=== PATIENT | male | born 1940 | race Caucasian/White ===

== ENCOUNTER 2018-12-26 18:48 | Inpatient (IN) | payer MEDICARE ==
[2018-12-26 19:29] LABS: Hemoglobin 14.2 g/dL (14.0-18.0); Mean Corpuscular HGB CONC 32.8 g/dL (32.0-36.0); Mean Corpuscular Hemoglobin 31.4 pg (27.0-31.0); Mean Corpuscular Volume 95.7 fL (78.0-98.0); Mean Platelet Volume 10.5 fL (7.4-10.4); Platelet Count 138 thou/uL (130-400); RBC Distribution Width 13.3 % (11.5-14.5); Red Blood Cell (RBC) Count 4.54 mill/uL (4.70-6.10); White Blood Cell (WBC) Count 15.8 thou/uL (4.8-10.8)
--- NOTE | 2018-12-26 19:33 | RAD ---
CHEST ONE VIEW 12/26/18 HISTORY: Shortness of breath. COMPARISON: Radiograph 10/24/14. FINDINGS: There is a left basilar air space opacity. Subtle right basilar air space opacity. Mild distention of the gastric bubble. Lungs are hypoinflated. No pneumothorax. Rotator cuff arthropathy bilaterally. IMPRESSION: Left basilar air space infiltrates concerning for aspiration or infection. POS: [facility]
[2018-12-26 19:35] LABS: INR-International Normal Ratio 1.3; PTT 32.4 SEC (22.9-36.1); Prothrombin Time 15.9 SEC (12.0-14.7)
[2018-12-26 19:53] LABS: Band 15 % (5-11); Lymphocytes 2 % (21-51); MDiff Complete? YES; Monocytes 4 % (0-10); Neutrophil 79 % (42-75); Platelet Morphology Comment Appears Adequate
[2018-12-26 19:56] LABS: ALT (SGPT) 59 U/L (8-55); AST (SGOT) 38 U/L (5-34); Albumin 2.8 g/dL (3.4-4.8); Alkaline Phosphatase 306 U/L (40-150); Anion Gap 16 mmol/L (10-20); BUN (Urea Nitrogen) 86 mg/dL (8.4-25.7); Bilirubin, Total 3.6 mg/dL (0.2-1.2); Calc. Creatinine Clearance 0 mL/min (70-130); Calcium 8.4 mg/dL (7.8-10.44); Carbon Dioxide 23 mmol/L (23-31); Chloride 90 mmol/L (98-107); Estimated GFR-MDRD 16; Globulin 2.8 g/dL (2.4-3.5); Glucose 532 mg/dL (83-110); Potassium 4.7 mmol/L (3.5-5.1); Protein, Total 5.6 g/dL (5.8-8.1); Sodium 124 mmol/L (136-145)
[2018-12-26] MEDS ORDERED: cefTRIAXone\\ROCEPHIN 2 GM VIAL ONE (22:22)
[2018-12-26 22:37] LABS: Troponin I Less than 0.010 ng/mL (< 0.028)
[2018-12-26 22:41] LABS: Bilirubin Moderate (Negative); Clarity CLOUDY (Clear); Glucose, Urine (Dipstick) 100 mg/dL (Negative); Leukocyte Large (Negative); Nitrite Positive (Negative); Protein, Urine (Dipstick) 100 mg/dL (Neg-Trace); Specific Gravity, Urine 1.016 (1.002-1.036)
[2018-12-26 22:43] LABS: Bacteria/HPF 4+ HPF (None Seen); Hyaline Casts/LPF 0-3 HYALINE CAST LPF (0-3 Hyaline); Pathc Cast-AUWi Flag 0.81 (0-2.49); Squamous Epithelial 0-3 HPF (0-3)
[2018-12-26 22:45] LABS: Blood, Urine Small (Negative); Yeast-All Forms None Seen HPF (None Seen)
[2018-12-27] MEDS ORDERED: Guaifenesin DM 100-10/5 ML UDCUP PO PRN (00:41)
[2018-12-27] MEDS ORDERED: Ondansetron PF 4 MG/2 ML Vial IVP PRN (00:41)
[2018-12-27] MEDS ORDERED: Zolpidem Tartrate 5 MG TAB PO PRN (00:41)
[2018-12-27] MEDS ORDERED: Metoprolol Tartrate 5 MG/5 ML VIAL IVP PRN (00:41)
[2018-12-27] MEDS ORDERED: Dextrose 5% in Water 1,000 ML IV PRN (00:49)
[2018-12-27] MEDS ORDERED: HumaLOG 300 UNITS/3 ML VIAL SC PRN ×4 (00:49→07:46)
[2018-12-27] MEDS ORDERED: Dextrose 50% Abboject 50 ML SYRINGE SLOW IVP PRN (00:49)
--- NOTE | 2018-12-27 01:13 | PDOC.EVN ---
Event Note - Event Note Event Note: Nurse Anusha brought to my attention patient's low BP as she was monitoring the patient vigilantly along with Nurse Anuradha. The patient has low Na, likely indicating a low EF and possible increase an ADH due to CHF with CKD and cardiorenal and depressurization of the baroreceptors. Patient has received 2 L bolus already. I do not know what his EF is and with the patient presenting with SOB and afib I would not like to give more IVFs. At this point in time will do midodrine 10mg po TID to be held if SBP > 140mmHg. Will change patient to inpatient and move to IMCU.
[2018-12-27] MEDS ORDERED: Midodrine HCl 5 MG TAB PO SCH (01:45)
[2018-12-27 01:59] LABS: Hemoglobin 13.6 g/dL (14.0-18.0); Mean Corpuscular HGB CONC 32.8 g/dL (32.0-36.0); Mean Corpuscular Hemoglobin 31.4 pg (27.0-31.0); Mean Corpuscular Volume 95.6 fL (78.0-98.0); Mean Platelet Volume 10.7 fL (7.4-10.4); Platelet Count 138 thou/uL (130-400); RBC Distribution Width 13.3 % (11.5-14.5); Red Blood Cell (RBC) Count 4.34 mill/uL (4.70-6.10); White Blood Cell (WBC) Count 17.4 thou/uL (4.8-10.8)
[2018-12-27 02:01] VITALS: BMI 28.3
[2018-12-27] MEDS ORDERED: Enoxaparin Sodium 100 MG/ML SYRINGE SC SCH ×3 (02:15→21:00)
[2018-12-27 02:16] LABS: Troponin I Less than 0.010 ng/mL (< 0.028)
[2018-12-27 02:17] LABS: Band 7 % (5-11); Lymphocytes 7 % (21-51); MDiff Complete? YES; Monocytes 5 % (0-10); Neutrophil 81 % (42-75)
[2018-12-27 02:22] LABS: Hemoglobin A1c 10.5 % (4.0-6.0)
[2018-12-27 02:23] LABS: Anion Gap 21 mmol/L (10-20); BUN (Urea Nitrogen) 92 mg/dL (8.4-25.7); Calc. Creatinine Clearance 22 mL/min (70-130); Calcium 8.7 mg/dL (7.8-10.44); Carbon Dioxide 16 mmol/L (23-31); Chloride 91 mmol/L (98-107); Estimated GFR-MDRD 16; Glucose 539 mg/dL (83-110); Potassium 4.8 mmol/L (3.5-5.1); Sodium 123 mmol/L (136-145)
[2018-12-27] MEDS ORDERED: Enoxaparin Sodium 100 MG/ML SYRINGE ONE (02:50)
[2018-12-27 07:28] LABS: Troponin I Less than 0.010 ng/mL (< 0.028)
[2018-12-27] MEDS ORDERED: VANCOMYCIN/ZOSYN IVPB PRN (07:45)
[2018-12-27] MEDS ORDERED: Sodium Chloride 0.9% 500 ML IV SCH (07:45)
[2018-12-27 09:00] LABS: Lactic Acid 2.1 mmol/L (0.5-2.2)
[2018-12-27] MEDS ORDERED: Famotidine 20 MG TAB PO SCH (09:00)
[2018-12-27] MEDS ORDERED: Insulin Glargine 5 UNITS in Pre-Filled Syringe 1 EACH SC SCH ×2 (09:00→21:00)
[2018-12-27] MEDS ORDERED: Vancomycin HCl 1.25 GM in Sodium Chloride 0.9% 250 ML 250 ML IVPB SCH (09:00)
[2018-12-27] MEDS: Aspirin 81 mg Enteric Coated Tablet PO SCH (09:07)
[2018-12-27] MEDS: Saccharomyces boulardii 250 MG CAP PO SCH (09:09)
[2018-12-27] MEDS ORDERED: Famotidine 20 MG TAB ONE (09:10)
[2018-12-27] MEDS: Famotidine 20 MG TAB PO SCH (09:35)
[2018-12-27] MEDS: Piperacillin/Tazobactam 2.25 GM in Sodium Chloride 0.9% 100 ML IVPB SCH ×3 (09:35→20:23)
[2018-12-27] MEDS: Heparin 5,000 UNITS/ML VIAL SC SCH ×2 (09:52→20:23)
[2018-12-27] MEDS: Sodium Chloride 0.9% 1,000 ML IV SCH (09:53)
--- NOTE | 2018-12-27 11:34 | PDOC.PN ---
- Subjective Encounter Start Date: 12/27/18 Encounter Start Time: 10:35 -: old records requested/rev pt has cough, he is very weak, no fever today, has mild dyspnea - Objective MAR Reviewed: Yes Vital Signs & Weight: Weight Weight 203 lb 2 oz Result Diagrams: 12/27/18 01:43 12/27/18 01:43 Additional Labs: Accuchecks 12/27/18 12/26/18 06:53 22:56 POC Glucose 435 H 476 H Radiology Reviewed by me: Yes (chest xray reviewed) EKG Reviewed by me: Yes (afib) Phys Exam - Physical Examination Constitutional: NAD HEENT: PERRLA, moist MMs, sclera anicteric Neck: no JVD, supple Respiratory: no wheezing, no rales, no rhonchi Cardiovascular: RRR, no significant murmur, no rub Gastrointestinal: soft, non-tender, no distention, positive bowel sounds Musculoskeletal: no edema, pulses present Neurological: non-focal, normal sensation, moves all 4 limbs Lymphatic: no nodes Psychiatric: normal affect, A&O x 3 Skin: no rash, normal turgor Dx/Plan (1) Acute kidney failure Status: Acute (2) Community acquired bacterial pneumonia Code(s): J15.9 - UNSPECIFIED BACTERIAL PNEUMONIA Status: Acute (3) Hyperglycemia due to type 2 diabetes mellitus Code(s): E11.65 - TYPE 2 DIABETES MELLITUS WITH HYPERGLYCEMIA Status: Acute (4) Hyponatremia Code(s): E87.1 - HYPO-OSMOLALITY AND HYPONATREMIA Status: Acute (5) Metabolic acidosis Code(s): E87.2 - ACIDOSIS Status: Acute (6) Sepsis with acute organ dysfunction Code(s): A41.9 - SEPSIS, UNSPECIFIED ORGANISM; R65.20 - SEVERE SEPSIS WITHOUT SEPTIC SHOCK Status: Acute (7) Sepsis with hypotension Code(s): A41.9 - SEPSIS, UNSPECIFIED ORGANISM; I95.9 - HYPOTENSION, UNSPECIFIED Status: Acute (8) UTI (urinary tract infection) Status: Acute (9) Atrial fibrillation and flutter Code(s): I48.91 - UNSPECIFIED ATRIAL FIBRILLATION; I48.92 - UNSPECIFIED ATRIAL FLUTTER Status: Chronic (10) BPH (benign prostatic hyperplasia) Code(s): N40.0 - BENIGN PROSTATIC HYPERPLASIA WITHOUT LOWER URINRY TRACT SYMP Status: Chronic (11) COPD (chronic obstructive pulmonary disease) Status: Chronic (12) Diabetes type 2, controlled Code(s): E11.9 - TYPE 2 DIABETES MELLITUS WITHOUT COMPLICATIONS Status: Chronic (13) Dyslipidemia Code(s): E78.5 - HYPERLIPIDEMIA, UNSPECIFIED Status: Chronic (14) Hypertension Code(s): I10 - ESSENTIAL (PRIMARY) HYPERTENSION Status: Chronic - Plan cont current plan of care, plan discussed w/ family, continue antibiotics, respiratory therapy * will add vancomycin and zosyn * add duoneb * continue IVF * add bolus fluid * echo pending * cardiology consulted * follow culture * medication reviewed as below * symptomatic treatment * discussed with son bedside. * control blood sugar Review of Systems - Review of Systems Respiratory: Cough. negative: Dry, Shortness of Breath, Hemoptysis, SOB with Excertion, Pleuritic Pain, Sputum, Wheezing Cardiovascular: negative: chest pain, palpitations, orthopnea, paroxysmal nocturnal dyspnea, edema, light headedness, other Gastrointestinal: negative: Nausea, Vomiting, Abdominal Pain, Diarrhea, Constipation, Melena, Hematochezia, Other Genitourinary: negative: Dysuria, Frequency, Incontinence, Hematuria, Retention , Other Musculoskeletal: negative: Neck Pain, Shoulder Pain, Arm Pain, Back Pain, Hand Pain, Leg Pain, Foot Pain, Other - Medications/Allergies Allergies/Adverse Reactions: Allergies Allergy/AdvReac Type Severity Reaction Status Date / Time No Known Allergies Allergy Unverified 12/27/18 00:51 Medications: Current Medications Acetaminophen (Tylenol) 650 mg PO Q4H PRN PRN Reason: Headache/Fever/Mild Pain (1-3) Albuterol/Ipratropium (Duoneb) 3 ml NEB [id number] [facility] Aspirin (Ecotrin) 81 mg PO DAILY [facility] Last Admin: 12/27/18 09:07 Dose: 81 mg Atorvastatin Calcium (Lipitor) 40 mg PO HS [facility] Dextrose/Water (Dextrose 50%) 25 gm SLOW IVP PRN PRN PRN Reason: Hypoglycemia Famotidine (Pepcid) 20 mg PO DAILY [facility] Last Admin: 12/27/18 09:35 Dose: 20 mg Glucagon (Glucagon) 1 mg IM PRN PRN PRN Reason: Hypoglycemia Guaifenesin/Dextromethorphan (Robitussin Dm) 15 ml PO Q4H PRN PRN Reason: Cough Heparin Sodium (Porcine) (Heparin) 5,000 units SC BID [facility] Last Admin: 12/27/18 09:52 Dose: 5,000 units Dextrose/Water (D5w) 1,000 mls @ 0 mls/hr IV .Q0M PRN PRN Reason: Hypoglycemia Sodium Chloride (Normal Saline 0.9%) 1,000 mls @ 125 mls/hr IV .Q8H [facility] Last Admin: 12/27/18 09:53 Dose: 1,000 mls Piperacillin Sod/Tazobactam (Sod 2.25 gm/ Sodium Chloride) 100 mls @ 200 mls/ hr IVPB 0200,0800,1400,2000 [facility] Last Admin: 12/27/18 09:35 Dose: 100 mls Insulin Glargine 5 units/ (Miscellaneous Medication) 0.05 mls @ 0 mls/hr SC HS [facility] Insulin Glargine 5 units/ (Miscellaneous Medication) 0.05 mls @ 0 mls/hr SC QAM [facility] Last Admin: 12/27/18 09:04 Dose: 0.05 mls Vancomycin HCl 1.25 gm/ Sodium (Chloride) 250 mls @ 166.667 mls/hr IVPB .PENDING LEVEL [facility] Insulin Human Lispro (Humalog) 0 units SC .MODERATE SLIDING SC PRN PRN Reason: Moderate Correctional Scale Insulin Human Lispro (Humalog) 0 units SC .BEDTIME SLIDING SC PRN PRN Reason: Bedtime Correctional Scale Miscellaneous Medication (Pharmacy To Dose) 1 each IVPB PRN PRN PRN Reason: Pharmacy to dose Ondansetron HCl (Zofran) 4 mg IVP Q6H PRN PRN Reason: Nausea/Vomiting Saccharomyces Boulardii (Florastor) 250 mg PO DAILY [facility] Last Admin: 12/27/18 09:09 Dose: 250 mg Sodium Chloride (Flush - Normal Saline) 10 ml IVF Q12HR [facility] Last Admin: 12/27/18 09:09 Dose: 10 ml Sodium Chloride (Flush - Normal Saline) 10 ml IVF PRN PRN PRN Reason: Saline Flush Zolpidem Tartrate (Ambien) 5 mg PO HSPRN PRN PRN Reason: Insomnia
[2018-12-27] MEDS ORDERED: HumaLOG 300 UNITS/3 ML VIAL ONE (12:36)
[2018-12-27] MEDS ORDERED: Piperacillin/Tazobactam 2.25 GM VIAL ONE (14:19)
[2018-12-27] MEDS ORDERED: Sodium Chloride 0.9% 100 ML ONE (14:19)
[2018-12-27 14:57] LABS: Troponin I Less than 0.010 ng/mL (< 0.028)
[2018-12-27 18:21] LABS: Anion Gap 23 mmol/L (10-20); BUN (Urea Nitrogen) 100 mg/dL (8.4-25.7); Calc. Creatinine Clearance 20 mL/min (70-130); Calcium 8.5 mg/dL (7.8-10.44); Chloride 96 mmol/L (98-107); Estimated GFR-MDRD 14; Potassium 4.8 mmol/L (3.5-5.1); Sodium 123 mmol/L (136-145)
[2018-12-27 18:27] LABS: Carbon Dioxide 9 mmol/L (23-31); Glucose 566 mg/dL (83-110)
[2018-12-27] MEDS ORDERED: Dextrose 5 %-0.45 % NaCl 1,000 ML IV PRN (18:29)
[2018-12-27] MEDS ORDERED: CCU Electrolyte Replacement 1 EACH IVPB ONE (18:29)
[2018-12-27] MEDS ORDERED: NS 0.9% w/ 20 MEQ KCL 1,000 ML IV PRN ×2 (18:29)
[2018-12-27] MEDS ORDERED: D5 1/2 NS w/20 mEq KCL 1,000 ML IV PRN (18:29)
[2018-12-27] MEDS ORDERED: Sodium Chloride 0.9% 1,000 ML IV PRN ×4 (18:29)
[2018-12-27] MEDS ORDERED: HUMULIN R 100 UNITS in Sodium Chloride 0.9% 100 ML IVPB SCH (18:30)
[2018-12-27] MEDS ORDERED: Magnesium 2 GM/50 ML 2 GM in Premix Bag 1 BAG IVPB PRN (18:37)
[2018-12-27] MEDS ORDERED: CCU ELECTROLYTE REPLACEMENT PROTOCOL FS PRN (18:37)
[2018-12-27] MEDS ORDERED: Potassium Chloride 40 MEQ in Sodium Chloride 0.9% 250 ML 250 ML IVPB PRN (18:37)
[2018-12-27] MEDS ORDERED: Magnesium Oxide 400 MG TAB PO PRN ×2 (18:37)
[2018-12-27] MEDS ORDERED: Potassium Chloride 40 MEQ in Premix Bag 1 BAG IVPB PRN (18:37)
[2018-12-27] MEDS ORDERED: Potassium Phosphate 12 MMOL in Sodium Chloride 0.9% 250 ML 250 ML IV PRN (18:37)
[2018-12-27] MEDS ORDERED: Potassium Phosphate 15 MMOL in Sodium Chloride 0.9% 250 ML 250 ML IV PRN (18:37)
[2018-12-27] MEDS ORDERED: Potassium Chloride 20 MEQ TAB PO PRN (18:37)
[2018-12-27] MEDS ORDERED: Potassium Phosphate 9 MMOL in Sodium Chloride 0.9% 100 ML IVPB PRN (18:37)
[2018-12-27 19:43] LABS: Anion Gap 20 mmol/L (10-20); BUN (Urea Nitrogen) 100 mg/dL (8.4-25.7); Calc. Creatinine Clearance 19 mL/min (70-130); Calcium 8.7 mg/dL (7.8-10.44); Carbon Dioxide 15 mmol/L (23-31); Chloride 94 mmol/L (98-107); Estimated GFR-MDRD 14; Glucose 481 mg/dL (83-110); Potassium 4.5 mmol/L (3.5-5.1); Sodium 124 mmol/L (136-145)
[2018-12-27] MEDS ORDERED: Insulin Glargine 15 UNITS in Pre-Filled Syringe 1 EACH SC SCH (21:00)
[2018-12-27] MEDS ORDERED: Atorvastatin Calcium 40 MG TAB PO SCH (21:00)
--- NOTE | 2018-12-27 21:46 | CON ---
DATE OF CONSULTATION: HISTORY OF PRESENT ILLNESS: Lele Alvarez is a 77-year-old gentleman from [place], who was brought into the ER for shortness of breath. He is clearly confused, encephalopathic. There are no family members at the bedside. Nurses tell me that he is having some palpitation, shortness of breath, and some vague chest pain, but no fever or chills. X-ray shows left-sided interstitial infiltrate. Some cardiomegaly and elevated right hemidiaphragm. He is apparently a former smoker. PAST MEDICAL HISTORY: Bronchitis, COPD, CHF, asthma, diabetes, hyperlipidemia, high cholesterol, and hypertension. PAST SURGICAL HISTORY: Some kind of colon surgery. It appears he has seen Dr. Nolen in office in the past. He had a pulmonary function test done in 2011 and he was admitted with COPD exacerbation. Additional history includes noncompliance. Previous colonoscopy invasive, moderately diffuse adenocarcinoma diagnosed 10/12/2012. Underwent surgery by Dr. Tavarez, laparoscopic right hemicolectomy. HOME MEDICATIONS: Difficult to obtain here, people are trying to get information, but appears to have included albuterol inhaler, Aleve, Coreg 6.25, doxazosin 2 mg, Lasix 40, nebulized ipratropium, Lantus 40 units once a day, lisinopril 10, Singulair 10, pravastatin 80, tamsulosin, and Victoza 3 Paks. ALLERGIES: APPARENTLY NONE. REVIEW OF SYSTEMS: Unobtainable. He is confused. In the ER, he is getting IV infusion of Zosyn. PHYSICAL EXAMINATION: VITAL SIGNS: Pulse is 80, sats are 98% somewhat oxygen, and blood pressure . CHEST: Decreased breath sounds. A little bit of crackles. CARDIAC: Normal S1 and S2. No gallops. ABDOMEN: No masses. LABORATORY DATA: Labs shows white count 70,000, hemoglobin and hematocrit are 13 and 41. His blood sugar was elevated at 500. Platelet count was normal. BUN and creatinine markedly elevated at 98 and 3.6. Glucose is markedly elevated. Lactic acid is 2.1. His chest x-ray shows left-sided infiltrate, elevated hemidiaphragm. Urine shows greater than 50, TNTC. IMPRESSION: 1. Respiratory failure, congestive heart failure, chronic obstructive pulmonary disease, left-sided pneumonia. 2. Azotemia, appears to be prerenal. 3. Encephalopathy. 4. Diabetes. 5. Former smoker. 6. History of colon cancer. PLAN: Additional information from family has arrived. He was started on antibiotics as per admitting physician, vancomycin and Zosyn for both UTI and pneumonia, guaifenesin, neb treatments. I will hold his Lasix, slow hydration. I will notify Dr. Nolen, follow in the morning. Input from Cardiology and Nephrology as noted. Consultation note, 70 minutes, 50% direct patient care. Job ID: [id number]
[2018-12-27] MEDS ORDERED: Haloperidol Lactate 5 MG/ML VIAL SLOW IVP SCH (22:00)
[2018-12-27 22:55] LABS: Anion Gap 19 mmol/L (10-20); BUN (Urea Nitrogen) 99 mg/dL (8.4-25.7); Calc. Creatinine Clearance 20 mL/min (70-130); Calcium 8.4 mg/dL (7.8-10.44); Carbon Dioxide 15 mmol/L (23-31); Chloride 96 mmol/L (98-107); Estimated GFR-MDRD 14; Glucose 429 mg/dL (83-110); Potassium 4.2 mmol/L (3.5-5.1); Sodium 126 mmol/L (136-145)
--- NOTE | 2018-12-28 00:08 | CON ---
DATE OF CONSULTATION: CONSULTING PHYSICIAN: Judd Paiz DO REASON FOR CONSULTATION: Acute kidney injury. REASON FOR ADMISSION: Shortness of breath. HISTORY OF PRESENT ILLNESS: This is a 77-year-old male with a history of CHF, GERD, proteinuria, type 2 diabetes, came to the hospital with above complaints and is being admitted for CHF exacerbation. Nephrology is consulted for acute kidney injury. The patient's creatinine was found to be elevated at 3.68 from the baseline of 0.8. The patient is saying that he has hard time explaining his symptoms. No fever or chills. No nausea or vomiting. PAST MEDICAL HISTORY: Positive for CHF, GERD, bronchitis, hiatal hernia, proteinuria, hyperlipidemia, hypertension. PAST SURGICAL HISTORY: Colon surgery. HOME MEDICATIONS: Reviewed. ALLERGIES: NO KNOWN DRUG ALLERGIES. SOCIAL HISTORY: No smoking, alcohol, or illicit drug abuse. FAMILY HISTORY: No history of any kidney disease. REVIEW OF SYSTEMS: CONSTITUTIONAL: Negative for weight loss or gain, ability to conduct usual activities. SKIN: Negative for rash, itching. EYES: Negative for double vision, pain. ENT/MOUTH: Negative for nose bleeding, neck stiffness, pain, tenderness. CARDIOVASCULAR: Negative for palpitations, dyspnea on exertion, orthopnea. RESPIRATORY: Negative for shortness of breath, wheezing, cough, hemoptysis, fever or night sweats. GASTROINTESTINAL: Negative for poor appetite, abdominal pain, heartburn, nausea , vomiting, constipation, or diarrhea. GENITOURINARY: Negative for urgency, frequency, dysuria, nocturia. MUSCULOSKELETAL: Negative for pain, swelling. NEUROLOGIC/PSYCHIATRIC: Negative for anxiety, depression. ALLERGY/IMMUNOLOGIC: Negative for skin rash, bleeding tendency. PHYSICAL EXAMINATION: GENERAL: This is a well-built male, in no apparent distress. VITAL SIGNS: Temperature 98, pulse 78, respiratory rate 18, blood pressure 112/ 78. HEENT: Atraumatic and normocephalic. Oral mucosa is moist. NECK: Supple. CARDIOVASCULAR: S1 and S2 heard. Rate and rhythm are regular. RESPIRATORY: Clear. GI: Abdomen is soft. MUSCULOSKELETAL: 1+ edema. DERMATOLOGIC: No skin rash. NEUROLOGIC: Alert and awake. PSYCHIATRIC: Normal mood and affect. LABORATORY DATA: Hemoglobin is 13.6. Sodium is 123, potassium is 4.8, BUN is 92, and creatinine is 3.6. ASSESSMENT AND PLAN: 1. Acute kidney injury on chronic kidney disease, most likely secondary to sepsis and volume depletion, currently on IV fluids. We will monitor. Avoid nephrotoxins. 2. Hyponatremia, recheck sodium, on IV fluids. 3. Metabolic acidosis, on IV fluids, monitor closely. 4. Leukocytosis. 5. Type 2 diabetes with hyperglycemia and elevated hemoglobin A1c. Avoid nephrotoxins, renally dose all the medications, we will follow, and recheck labs. Job ID: [id number] [facility]
[2018-12-28] MEDS: Sodium Chloride 0.9% 1,000 ML IV SCH ×3 (00:54→20:53)
[2018-12-28 01:12] LABS: Creatinine, Urine 125.77 mg/dL (63-166)
[2018-12-28] MEDS: Piperacillin/Tazobactam 2.25 GM in Sodium Chloride 0.9% 100 ML IVPB SCH (02:15)
[2018-12-28 03:13] LABS: Anion Gap 16 mmol/L (10-20); BUN (Urea Nitrogen) 102 mg/dL (8.4-25.7); Calc. Creatinine Clearance 21 mL/min (70-130); Calcium 8.4 mg/dL (7.8-10.44); Carbon Dioxide 17 mmol/L (23-31); Chloride 101 mmol/L (98-107); Estimated GFR-MDRD 15; Glucose 167 mg/dL (83-110); Potassium 4.3 mmol/L (3.5-5.1); Sodium 130 mmol/L (136-145)
[2018-12-28 03:29] LABS: Hemoglobin A1c 10.1 % (4.0-6.0)
[2018-12-28 03:30] LABS: Band 20 % (5-11); Hemoglobin 12.9 g/dL (14.0-18.0); Lymphocytes 3 % (21-51); MDiff Complete? YES; Mean Corpuscular HGB CONC 33.5 g/dL (32.0-36.0); Mean Corpuscular Hemoglobin 31.2 pg (27.0-31.0); Mean Platelet Volume 9.5 fL (7.4-10.4); Monocytes 2 % (0-10); Neutrophil 75 % (42-75); Platelet Count 159 thou/uL (130-400); RBC Distribution Width 13.4 % (11.5-14.5); Red Blood Cell (RBC) Count 4.13 mill/uL (4.70-6.10); White Blood Cell (WBC) Count 18.6 thou/uL (4.8-10.8)
[2018-12-28 03:34] LABS: ALT (SGPT) 34 U/L (8-55); AST (SGOT) 20 U/L (5-34); Albumin 2.4 g/dL (3.4-4.8); Alkaline Phosphatase 232 U/L (40-150); Anion Gap 17 mmol/L (10-20); BUN (Urea Nitrogen) 101 mg/dL (8.4-25.7); Calc. Creatinine Clearance 21 mL/min (70-130); Calcium 8.2 mg/dL (7.8-10.44); Carbon Dioxide 16 mmol/L (23-31); Chloride 101 mmol/L (98-107); Estimated GFR-MDRD 15; Globulin 3.2 g/dL (2.4-3.5); Glucose 164 mg/dL (83-110); Magnesium 1.5 mg/dL (1.6-2.6); Phosphorus 3.3 mg/dL (2.3-4.7); Potassium 4.2 mmol/L (3.5-5.1); Protein, Total 5.6 g/dL (5.8-8.1); Sodium 130 mmol/L (136-145)
--- NOTE | 2018-12-28 08:41 | CON ---
DATE OF CONSULTATION: HISTORY OF PRESENT ILLNESS: Mr. Lele Alvarez is a 77-year-old white male from [place] who was admitted with increased shortness of breath, pneumonia and urinary tract infection and urosepsis. I came by to see him last night. However, he was encephalopathic, would not let me examine him and refused to talk to me. He told me "you killed me, my dogs and some of my children." This morning, he is much calmer and much more conversant, but still somewhat confused. He was admitted with increased shortness of breath. He has been found to be in atrial fibrillation with fast ventricular response. He denies any chest discomfort, but does admit at times he would feel his heart beating rapidly. He is totally uncertain how long this has been occurring. PAST MEDICAL HISTORY: 1. Remarkable for COPD. 2. Bronchitis. 3. Congestive heart failure. 4. History of asthma. 5. Diabetes. 6. Hyperlipidemia. 7. Hypertension. PAST SURGICAL HISTORY: Hemicolectomy in 2011. MEDICATIONS: At home include: 1. Albuterol nebs q.4 hours p.r.n. 2. Carvedilol 6.25 b.i.d. 3. Cardura 2 mg at bedtime. 4. Flonase 1 spray each side daily. 5. Furosemide 40 mg q.a.m. 6. Lantus. 7. Victoza. 8. Ipratropium bromide nebs q.4 hours. 9. Lisinopril 10 mg daily. 10. Singulair 10 mg at bedtime. 11. KCl 20 mEq daily. 12. Pravastatin 80 at bedtime. 13. Flomax 0.4 daily. ALLERGIES: NONE. SOCIAL HISTORY: Apparently smoked in the past. He rarely drinks. FAMILY HISTORY: Unremarkable. REVIEW OF SYSTEMS: Difficult to obtain with the patient's mental status. PHYSICAL EXAMINATION: VITAL SIGNS: Blood pressure 117/70, pulse of 93. With minimal movement, his heart rate would jump up to 130 per minute, atrial fibrillation. HEENT: PERRL. NECK: Supple. CHEST: Clear, but decreased breath sounds. CARDIOVASCULAR: S1, S2 normal without any S3, S4, or murmurs. ABDOMEN: Normal bowel sounds without tenderness. EXTREMITIES: Revealed trace pretibial edema. NEUROLOGICAL: Grossly intact except for his confusion. SKIN: Warm and dry. LABORATORY DATA: EKG revealed atrial fibrillation-flutter, rate of 89 per minute, low-voltage QRS. Last EKG I can find is in 2011 and he was in normal sinus rhythm at that time. Echocardiogram revealed normal left ventricular function with ejection fraction of 55% to 60%, left atrial enlargement, mild right atrial enlargement, mitral annular calcification, mild mitral regurgitation, mild aortic stenosis and mild tricuspid regurgitation. Hemoglobin 12.9, hematocrit 38.4, white count 54529, platelets 159,000. INR 1.3. Sodium 130, potassium 4.3, chloride 101, carbon dioxide 17, BUN 102, creatinine 3.89. His highest creatinine this admission was 4.26, baseline in November 2018 was 0.82. In November 2018-cholesterol 175, triglycerides 86, HDL 50, LDL 108. Glucose has been as high as 566. TSH is normal. Troponin I x5 has been less than 0.010. IMPRESSION: 1. Atrial fibrillation-flutter with at times fast ventricular rate. The onset of this is unknown. It sounds as if he has had palpitations at home, but it is difficult to obtain the time course of when that seemed to start. 2. Left lower lobe pneumonia. 3. Urosepsis with Escherichia coli in the urine as well as on blood culture. 4. Probably some degree of diastolic dysfunction. 5. Acute kidney injury. Furosemide and lisinopril have been discontinued and he has been gently hydrated. 6. History of chronic obstructive pulmonary disease. 7. Former smoker. 8. Encephalopathy, which is improved today versus last time. 9. Diabetes. 10. Hypertension. 11. Hypercholesterolemia. 12. History of colon cancer. PLAN: The patient currently is on heparin 5000 units b.i.d. for anticoagulation. I feel at this time our best approach should be rate control. It would be somewhat difficult with his acute kidney injury to place him on digoxin. He is on carvedilol chronically; however, his blood pressure had been somewhat low this admission and that has been discontinued. I will start him on very low-dose metoprolol and gradually increase that for rate control. Eventually it should be transitioned to an oral anticoagulant. I will follow the patient with you. Job ID: [id number] [facility]
[2018-12-28] MEDS ORDERED: Vancomycin HCl 1.25 GM in Sodium Chloride 0.9% 250 ML 250 ML IVPB SCH (09:00)
[2018-12-28] MEDS ORDERED: Midodrine HCl 5 MG TAB PO SCH (09:00)
[2018-12-28] MEDS ORDERED: Insulin Glargine 15 UNITS in Pre-Filled Syringe 1 EACH SC SCH (09:00)
[2018-12-28] MEDS ORDERED: Non-Formulary Item 1 EACH (Fluticasone Propionate [Flonase Allergy Relief] 1 SPRAY) EA NARE SCH (09:00)
[2018-12-28] MEDS: Famotidine 20 MG TAB PO SCH (09:10)
[2018-12-28] MEDS: Tamsulosin HCl 0.4 MG CAP PO SCH (09:11)
[2018-12-28] MEDS: Aspirin 81 mg Enteric Coated Tablet PO SCH (09:11)
[2018-12-28] MEDS: Metoprolol Tartrate 25 MG TAB PO SCH ×2 (09:11→20:52)
[2018-12-28] MEDS: Saccharomyces boulardii 250 MG CAP PO SCH (09:18)
[2018-12-28] MEDS: Heparin 5,000 UNITS/ML VIAL SC SCH ×2 (09:34→20:52)
--- NOTE | 2018-12-28 09:59 | PRG ---
DATE OF SERVICE: 12/28/2018 SUBJECTIVE: This morning, he says he is feeling better. He is weak. OBJECTIVE: VITAL SIGNS: Pulse of 93, sats are 100%, blood pressure 117/63, respirations 18. CHEST: Decreased breath sounds. No wheezing. CARDIAC: Normal S1, S2. No gallop. ABDOMEN: No masses. LABORATORY DATA: Urine and blood growing E coli. ASSESSMENT: 1. Escherichia coli sepsis. 2. Left-sided pneumonia. 3. Diabetes. 4. Azotemia. 1. Continue present antibiotics adequate for E. coli sepsis. 2. Left pneumonia. 3. Advanced age. 4. SVT. 1. Continue to monitor lab. 2. PT, supportive care. Pulmonary to follow. Job ID: [id number]
--- NOTE | 2018-12-28 10:09 | ULT ---
RENAL ULTRASOUND: INDICATION: History of acute kidney injury. COMPARISON: None. FINDINGS: The right kidney measures 11.6 x 6.1 x 6.3 cm. There is no focal renal lesion or hydronephrosis. Th e right renal cortical thickness was measured at 1.96 cm. The left kidney measures 10.8 x 6.1 x 7.4 cm. The left renal cortical thickness is 1.4 cm. No focal renal lesion or hydronephrosis was evident. The bladder is decompressed. IMPRESSION: No focal renal lesion or hydronephrosis. No significant renal cortical thinning. POS: [facility]
--- NOTE | 2018-12-28 10:11 | PDOC.PN ---
- Subjective Encounter Start Date: 12/28/18 Encounter Start Time: 09:20 Patient seen and examined. No new complaints. No overnight events this morning pt is confused, family bedside - Objective MAR Reviewed: Yes Vital Signs & Weight: Vital Signs (12 hours) Temp Pulse Resp Pulse Ox 12/28/18 07:10 97.7 F 12/28/18 06:42 93 24 H 100 12/28/18 06:00 20 12/28/18 03:50 97.8 F 12/28/18 00:57 94 23 H 100 12/28/18 00:00 20 12/27/18 23:52 97.4 F L Weight Weight 203 lb 2 oz Most Recent Monitor Data Heart Rate from ECG 92 NIBP 117/67 NIBP BP-Mean 83 Respiration from ECG 22 SpO2 100 I&O: 12/27/18 12/28/18 12/29/18 06:59 06:59 06:59 Intake Total 3727 Output Total 325 Balance 3402 Result Diagrams: 12/28/18 02:38 12/28/18 02:38 Additional Labs: Accuchecks 12/28/18 12/28/18 12/28/18 09:38 08:31 07:06 POC Glucose 163 H 196 H 174 H 12/28/18 12/28/18 12/28/18 06:14 05:12 04:11 POC Glucose 166 H 167 H 175 H 12/28/18 12/28/18 12/28/18 03:16 02:17 01:15 POC Glucose 156 H 182 H 241 H 12/28/18 12/27/18 12/27/18 00:17 23:16 22:06 POC Glucose 296 H 389 H 397 H 12/27/18 12/27/18 12/27/18 19:57 14:45 12:34 POC Glucose 428 H 500 H 540 H Radiology Reviewed by me: Yes (echo reviewed) EKG Reviewed by me: Yes (nsr) Phys Exam - Physical Examination Constitutional: NAD HEENT: PERRLA, moist MMs, sclera anicteric Neck: no JVD, supple Respiratory: no wheezing, no rales, no rhonchi Cardiovascular: RRR, no significant murmur, no rub Gastrointestinal: soft, non-tender, no distention, positive bowel sounds Musculoskeletal: no edema, pulses present Neurological: non-focal, normal sensation Lymphatic: no nodes Psychiatric: normal affect Skin: no rash, normal turgor Dx/Plan (1) Acute metabolic encephalopathy Code(s): G93.41 - METABOLIC ENCEPHALOPATHY Status: Acute (2) Acute kidney failure Status: Acute (3) Bacteremia due to Escherichia coli Code(s): R78.81 - BACTEREMIA Status: Acute (4) Community acquired bacterial pneumonia Code(s): J15.9 - UNSPECIFIED BACTERIAL PNEUMONIA Status: Acute (5) DKA (diabetic ketoacidoses) Code(s): E13.10 - OTH DIABETES MELLITUS WITH KETOACIDOSIS WITHOUT COMA Status : Acute Qualifiers: Diabetes mellitus type: type 2 (6) Hyperglycemia due to type 2 diabetes mellitus Code(s): E11.65 - TYPE 2 DIABETES MELLITUS WITH HYPERGLYCEMIA Status: Acute (7) Hyponatremia Code(s): E87.1 - HYPO-OSMOLALITY AND HYPONATREMIA Status: Acute (8) Metabolic acidosis Code(s): E87.2 - ACIDOSIS Status: Acute (9) Sepsis with acute organ dysfunction Code(s): A41.9 - SEPSIS, UNSPECIFIED ORGANISM; R65.20 - SEVERE SEPSIS WITHOUT SEPTIC SHOCK Status: Acute (10) Sepsis with hypotension Code(s): A41.9 - SEPSIS, UNSPECIFIED ORGANISM; I95.9 - HYPOTENSION, UNSPECIFIED Status: Acute (11) UTI (urinary tract infection) Status: Acute (12) Atrial fibrillation and flutter Code(s): I48.91 - UNSPECIFIED ATRIAL FIBRILLATION; I48.92 - UNSPECIFIED ATRIAL FLUTTER Status: Chronic (13) BPH (benign prostatic hyperplasia) Code(s): N40.0 - BENIGN PROSTATIC HYPERPLASIA WITHOUT LOWER URINRY TRACT SYMP Status: Chronic (14) COPD (chronic obstructive pulmonary disease) Status: Chronic (15) Diabetes type 2, controlled Code(s): E11.9 - TYPE 2 DIABETES MELLITUS WITHOUT COMPLICATIONS Status: Chronic (16) Dyslipidemia Code(s): E78.5 - HYPERLIPIDEMIA, UNSPECIFIED Status: Chronic (17) Hypertension Code(s): I10 - ESSENTIAL (PRIMARY) HYPERTENSION Status: Chronic - Plan cont current plan of care, plan discussed w/ family, continue antibiotics, respiratory therapy * now will start lantus and then eventual stop insulin drip * start PT/OT * will change antibiotics to rocephin and levaquin as per renal dose * medication reviewed as below * symptomatic treatment * discussed with family * cardiology, nephrology and pulmonary following. Review of Systems - Review of Systems Other: not reliable due to metabolic encephalopathy - Medications/Allergies Allergies/Adverse Reactions: Allergies Allergy/AdvReac Type Severity Reaction Status Date / Time No Known Allergies Allergy Unverified 12/27/18 00:51 Medications: Current Medications Acetaminophen (Tylenol) 650 mg PO Q4H PRN PRN Reason: Headache/Fever/Mild Pain (1-3) Albuterol/Ipratropium (Duoneb) 3 ml NEB [id number] [facility] Last Admin: 12/28/18 06:42 Dose: 3 ml Aspirin (Ecotrin) 81 mg PO DAILY [facility] Last Admin: 12/28/18 09:11 Dose: 81 mg Atorvastatin Calcium (Lipitor) 20 mg PO HS [facility] Dextrose/Water (Dextrose 50%) 25 gm SLOW IVP PRN PRN PRN Reason: Hypoglycemia Famotidine (Pepcid) 20 mg PO DAILY [facility] Last Admin: 12/28/18 09:10 Dose: 20 mg Fluticasone Propionate (Flonase Nasal [place]) 0 gm NASAL DAILY [facility] Glucagon (Glucagon) 1 mg IM PRN PRN PRN Reason: Hypoglycemia Guaifenesin/Dextromethorphan (Robitussin Dm) 15 ml PO Q4H PRN PRN Reason: Cough Heparin Sodium (Porcine) (Heparin) 5,000 units SC BID [facility] Last Admin: 12/28/18 09:34 Dose: 5,000 units Dextrose/Water (D5w) 1,000 mls @ 0 mls/hr IV .Q0M PRN PRN Reason: Hypoglycemia Insulin Human Regular 100 (units/ Sodium Chloride) 101 mls @ 0 mls/hr IVPB INF [facility]; Protocol Last Admin: 12/27/18 20:22 Dose: 101 mls Dextrose/Sodium Chloride (D5 1/2 Ns) 1,000 mls @ 250 mls/hr IV .Q4H PRN; Protocol PRN Reason: Step 4 of DKA Protocol Potassium Chloride/Dextrose/Sod Cl (D5 1/2 Ns W/20 Meq Kcl) 1,000 mls @ 250 mls /hr IV .Q4H PRN; Protocol PRN Reason: Step 4 of DKA Protocol Last Admin: 12/28/18 03:17 Dose: 1,000 mls Sodium Chloride (Normal Saline 0.9%) 1,000 mls @ 250 mls/hr IV .Q4H PRN; Protocol PRN Reason: SEE STEP 3 OF DKA PROTOCOL Potassium Chloride/Sodium Chloride (Ns 0.9% W/ 20 Meq Kcl) 1,000 mls @ 500 mls/ hr IV .Q2H PRN; Protocol PRN Reason: Step 2 of DKA Protocol Last Admin: 12/27/18 22:14 Dose: 1,000 mls Potassium Chloride/Sodium Chloride (Ns 0.9% W/ 20 Meq Kcl) 1,000 mls @ 250 mls/ hr IV .Q4H PRN; Protocol PRN Reason: SEE STEP 3 OF DKA PROTOCOL Last Admin: 12/28/18 00:32 Dose: 1,000 mls Ceftriaxone Sodium 1 gm/ (Sodium Chloride) 100 mls @ 200 mls/hr IVPB Q24HR [facility] Levofloxacin (Levaquin) 250 mg PO 0600 [facility] Stop: 01/02/19 06:01 Levofloxacin (Levaquin) 250 mg PO ONE [facility] Stop: 12/28/18 10:30 Metoprolol Tartrate (Lopressor) 12.5 mg PO BID [facility] Last Admin: 12/28/18 09:11 Dose: 12.5 mg Montelukast Sodium (Singulair) 10 mg PO HS [facility] Ondansetron HCl (Zofran) 4 mg IVP Q6H PRN PRN Reason: Nausea/Vomiting Saccharomyces Boulardii (Florastor) 250 mg PO DAILY [facility] Last Admin: 12/28/18 09:18 Dose: 250 mg Sodium Chloride (Flush - Normal Saline) 10 ml IVF Q12HR [facility] Last Admin: 12/28/18 09:20 Dose: 10 ml Sodium Chloride (Flush - Normal Saline) 10 ml IVF PRN PRN PRN Reason: Saline Flush Tamsulosin HCl (Flomax) 0.4 mg PO DAILY [facility] Last Admin: 12/28/18 09:11 Dose: 0.4 mg Zolpidem Tartrate (Ambien) 5 mg PO HSPRN PRN PRN Reason: Insomnia
[2018-12-28] MEDS ORDERED: Dextrose 50% Abboject 50 ML SYRINGE SLOW IVP PRN (10:17)
[2018-12-28] MEDS ORDERED: Dextrose 5% in Water 1,000 ML IV PRN (10:17)
[2018-12-28 10:50] LABS: Anion Gap 16 mmol/L (10-20); BUN (Urea Nitrogen) 99 mg/dL (8.4-25.7); Calc. Creatinine Clearance 23 mL/min (70-130); Calcium 8.3 mg/dL (7.8-10.44); Carbon Dioxide 14 mmol/L (23-31); Chloride 103 mmol/L (98-107); Estimated GFR-MDRD 17; Glucose 198 mg/dL (83-110); Potassium 4.6 mmol/L (3.5-5.1); Sodium 128 mmol/L (136-145)
[2018-12-28] MEDS ORDERED: Insulin Glargine 20 UNITS in Pre-Filled Syringe 1 EACH SC SCH (11:00)
[2018-12-28] MEDS: cefTRIAXone\\ROCEPHIN 1 GM in Sodium Chloride 0.9% 100 ML IVPB SCH (11:24)
[2018-12-28] MEDS: Fluticasone Propionate Nasal Spray 16 gm Bottle NASAL SCH (11:25)
--- NOTE | 2018-12-28 12:47 | PRG ---
DATE OF SERVICE: 12/28/2018 SUBJECTIVE: Patient was seen and examined at bedside and overnight events noted. Patient denies any shortness of breath or chest pain or palpitation. No history of nausea or vomiting or diarrhea or fever or chills or cramps. OBJECTIVE: GENERAL: This is a well-built male in no apparent distress. VITAL SIGNS: Temperature 98.0, pulse 90, respiratory rate 18. Blood pressure 115/57. HEENT: Atraumatic, normocephalic. Oral mucosa is moist NECK: Supple. CARDIOVASCULAR: S1, S2 heard. Rate and rhythm regular. RESPIRATORY: Clear to auscultation. GASTROINTESTINAL: Abdomen is soft. MUSCULOSKELETAL: No tenderness. No edema. DERMATOLOGIC: No skin rash. NEUROLOGIC: Alert and awake and oriented X3. No focal neurologic deficits. Moving all the extremities. PSYCHIATRIC: Mood and affect normal. LABORATORY DATA: Sodium 128, potassium 4.6, BUN is 99, creatinine is 3.5. ASSESSMENT AND PLAN: 1. Acute kidney injury on chronic kidney disease, stable creatinine. Avoid nephrotoxins. 2. Hyponatremia, stable. 3. Metabolic acidosis. 4. Leukocytosis, possible sepsis. 5. Type 2 diabetes. 6. Diabetic ketoacidosis, better. Prognosis guarded. Avoid nephrotoxins. No acute indication for dialysis. Job ID: [id number]
[2018-12-28] MEDS ORDERED: Sterile Water 10 ML VIAL FS PRN (15:36)
[2018-12-28] MEDS ORDERED: Ziprasidone 20 MG VIAL IM SCH (15:45)
[2018-12-28] MEDS ORDERED: Ziprasidone 20 MG VIAL ONE (16:26)
[2018-12-28] MEDS: HumaLOG 300 UNITS/3 ML VIAL SC PRN ×2 (16:44→20:54)
[2018-12-28] MEDS: Acetaminophen 325 MG TAB PO PRN (20:51)
[2018-12-28] MEDS: Atorvastatin Calcium 20 MG TAB PO SCH (20:52)
[2018-12-28] MEDS: Montelukast Sodium 10 mg Tablet PO SCH (20:52)
[2018-12-28] MEDS ORDERED: Non-Formulary Item 1 EACH (Pravastatin Sodium [Pravachol] 80 MG) PO SCH (21:00)
[2018-12-29] MEDS: Sodium Chloride 0.9% 1,000 ML IV SCH ×3 (04:51→21:22)
[2018-12-29] MEDS: HumaLOG 300 UNITS/3 ML VIAL SC PRN ×4 (05:36→21:18)
[2018-12-29 05:42] LABS: Hemoglobin 13.3 g/dL (14.0-18.0); Hypochromia SLIGHT = 6-15 cells (100X) (0-5/hpf); Lymphocytes 2 % (21-51); MDiff Complete? YES; Mean Corpuscular HGB CONC 33.4 g/dL (32.0-36.0); Mean Corpuscular Hemoglobin 31.3 pg (27.0-31.0); Mean Corpuscular Volume 93.6 fL (78.0-98.0); Mean Platelet Volume 9.2 fL (7.4-10.4); Monocytes 2 % (0-10); Neutrophil 96 % (42-75); Platelet Count 168 thou/uL (130-400); Platelet Morphology Comment Appears Adequate; RBC Distribution Width 13.5 % (11.5-14.5); Red Blood Cell (RBC) Count 4.25 mill/uL (4.70-6.10); White Blood Cell (WBC) Count 16.2 thou/uL (4.8-10.8)
[2018-12-29 05:47] LABS: ALT (SGPT) 28 U/L (8-55); AST (SGOT) 22 U/L (5-34); Albumin 2.5 g/dL (3.4-4.8); Alkaline Phosphatase 232 U/L (40-150); Anion Gap 16 mmol/L (10-20); BUN (Urea Nitrogen) 95 mg/dL (8.4-25.7); Bilirubin, Total 2.2 mg/dL (0.2-1.2); Calc. Creatinine Clearance 25 mL/min (70-130); Calcium 8.5 mg/dL (7.8-10.44); Carbon Dioxide 16 mmol/L (23-31); Chloride 103 mmol/L (98-107); Estimated GFR-MDRD 19; Globulin 3.6 g/dL (2.4-3.5); Glucose 317 mg/dL (83-110); Magnesium 1.6 mg/dL (1.6-2.6); Phosphorus 4.2 mg/dL (2.3-4.7); Protein, Total 6.1 g/dL (5.8-8.1); Sodium 130 mmol/L (136-145)
[2018-12-29] MEDS: Metoprolol Tartrate 25 MG TAB PO SCH ×2 (08:17→20:01)
[2018-12-29] MEDS: Aspirin 81 mg Enteric Coated Tablet PO SCH (08:17)
[2018-12-29] MEDS: Famotidine 20 MG TAB PO SCH (08:17)
[2018-12-29] MEDS: Fluticasone Propionate Nasal Spray 16 gm Bottle NASAL SCH (08:18)
[2018-12-29] MEDS: Heparin 5,000 UNITS/ML VIAL SC SCH ×2 (08:18→20:00)
[2018-12-29] MEDS: Tamsulosin HCl 0.4 MG CAP PO SCH (08:18)
[2018-12-29] MEDS: Saccharomyces boulardii 250 MG CAP PO SCH (08:19)
[2018-12-29] MEDS: cefTRIAXone\\ROCEPHIN 1 GM in Sodium Chloride 0.9% 100 ML IVPB SCH (08:24)
[2018-12-29] MEDS ORDERED: Insulin Glargine 20 UNITS in Pre-Filled Syringe 1 EACH SC SCH (09:00)
[2018-12-29] MEDS: Insulin Glargine 30 UNITS in Pre-Filled Syringe 1 EACH SC SCH (09:39)
--- NOTE | 2018-12-29 09:40 | PRG ---
DATE OF SERVICE: 12/29/2018 SUBJECTIVE: This morning, he is awake, alert, and responsive, less short of breath. OBJECTIVE: VITAL SIGNS: Saturations 100% on room air, respiratory rate 18, and pulse 90, blood pressure . CHEST: Decreased breath sounds. No wheezing. CARDIAC: Normal S1, S2. No gallops. ABDOMEN: No masses. IMPRESSION: 1. Azotemia, prerenal, improved. 2. Hyponatremia, improved. 3. Diabetes. 4. Urinary tract infection. 5. Pneumonia. PLAN: He can be transferred out of the MICU. Continue antibiotics and ceftriaxone and slow hydration. We will follow while in the MICU. Job ID: [id number]
--- NOTE | 2018-12-29 10:28 | PDOC.PN ---
- Subjective Encounter Start Date: 12/29/18 Encounter Start Time: 09:35 Patient seen and examined. No new complaints. No overnight events - Objective MAR Reviewed: Yes Vital Signs & Weight: Vital Signs (12 hours) Temp Pulse Pulse Pulse Resp BP BP 12/29/18 09:11 94 95 125/60 134/73 12/29/18 08:00 12/29/18 07:18 98.2 F 12/29/18 06:36 90 18 12/29/18 04:45 97.7 F 12/29/18 00:48 98.6 F 12/29/18 00:21 84 20 Pulse Ox Pulse Ox Pulse Ox 12/29/18 09:11 100 100 12/29/18 08:00 100 12/29/18 07:18 12/29/18 06:36 100 12/29/18 04:45 12/29/18 00:48 12/29/18 00:21 98 Weight Weight 234 lb 2 oz Most Recent Monitor Data Heart Rate from ECG 89 NIBP 123/67 NIBP BP-Mean 85 Respiration from ECG 26 SpO2 100 I&O: 12/28/18 12/29/18 12/30/18 06:59 06:59 06:59 Intake Total 3727 3385 Output Total 325 1450 100 Balance 3402 1935 -100 Result Diagrams: 12/29/18 04:56 12/29/18 04:56 Additional Labs: Accuchecks 12/29/18 12/28/18 12/28/18 05:36 20:07 16:35 POC Glucose 310 H 271 H 250 H 12/28/18 12/28/18 12:18 10:46 POC Glucose 192 H 193 H EKG Reviewed by me: Yes Phys Exam - Physical Examination Constitutional: NAD HEENT: PERRLA, moist MMs, sclera anicteric Neck: no JVD, supple Respiratory: no wheezing, no rales, no rhonchi Cardiovascular: no significant murmur, no rub, irregular Gastrointestinal: soft, non-tender, no distention, positive bowel sounds Musculoskeletal: no edema, pulses present Neurological: non-focal, normal sensation Lymphatic: no nodes Psychiatric: normal affect Skin: no rash, normal turgor Dx/Plan (1) Acute metabolic encephalopathy Code(s): G93.41 - METABOLIC ENCEPHALOPATHY Status: Acute (2) Acute kidney failure Status: Acute (3) Bacteremia due to Escherichia coli Code(s): R78.81 - BACTEREMIA Status: Acute (4) Community acquired bacterial pneumonia Code(s): J15.9 - UNSPECIFIED BACTERIAL PNEUMONIA Status: Acute (5) DKA (diabetic ketoacidoses) Code(s): E13.10 - OTH DIABETES MELLITUS WITH KETOACIDOSIS WITHOUT COMA Status : Acute Qualifiers: Diabetes mellitus type: type 2 (6) Hyperglycemia due to type 2 diabetes mellitus Code(s): E11.65 - TYPE 2 DIABETES MELLITUS WITH HYPERGLYCEMIA Status: Acute (7) Hyponatremia Code(s): E87.1 - HYPO-OSMOLALITY AND HYPONATREMIA Status: Acute (8) Metabolic acidosis Code(s): E87.2 - ACIDOSIS Status: Acute (9) Sepsis with acute organ dysfunction Code(s): A41.9 - SEPSIS, UNSPECIFIED ORGANISM; R65.20 - SEVERE SEPSIS WITHOUT SEPTIC SHOCK Status: Acute (10) Sepsis with hypotension Code(s): A41.9 - SEPSIS, UNSPECIFIED ORGANISM; I95.9 - HYPOTENSION, UNSPECIFIED Status: Acute (11) UTI (urinary tract infection) Status: Acute (12) Atrial fibrillation and flutter Code(s): I48.91 - UNSPECIFIED ATRIAL FIBRILLATION; I48.92 - UNSPECIFIED ATRIAL FLUTTER Status: Chronic (13) BPH (benign prostatic hyperplasia) Code(s): N40.0 - BENIGN PROSTATIC HYPERPLASIA WITHOUT LOWER URINRY TRACT SYMP Status: Chronic (14) COPD (chronic obstructive pulmonary disease) Status: Chronic (15) Diabetes type 2, controlled Code(s): E11.9 - TYPE 2 DIABETES MELLITUS WITHOUT COMPLICATIONS Status: Chronic (16) Dyslipidemia Code(s): E78.5 - HYPERLIPIDEMIA, UNSPECIFIED Status: Chronic (17) Hypertension Code(s): I10 - ESSENTIAL (PRIMARY) HYPERTENSION Status: Chronic - Plan cont current plan of care, 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 * continue gentle IVF Review of Systems - Review of Systems Constitutional: weakness. negative: fever, chills, sweats, malaise, other Respiratory: negative: Cough, Dry, Shortness of Breath, Hemoptysis, SOB with Excertion, Pleuritic Pain, Sputum, Wheezing Cardiovascular: negative: chest pain, palpitations, orthopnea, paroxysmal nocturnal dyspnea, edema, light headedness, other Gastrointestinal: negative: Nausea, Vomiting, Abdominal Pain, Diarrhea, Constipation, Melena, Hematochezia, Other Genitourinary: negative: Dysuria, Frequency, Incontinence, Hematuria, Retention , Other Musculoskeletal: negative: Neck Pain, Shoulder Pain, Arm Pain, Back Pain, Hand Pain, Leg Pain, Foot Pain, Other Neurological: Confusion. negative: Weakness, Numbness, Incoordination, Change in Speech, Seizures, Other - Medications/Allergies Allergies/Adverse Reactions: Allergies Allergy/AdvReac Type Severity Reaction Status Date / Time No Known Allergies Allergy Unverified 12/27/18 00:51 Medications: Current Medications Acetaminophen (Tylenol) 650 mg PO Q4H PRN PRN Reason: Headache/Fever/Mild Pain (1-3) Last Admin: 12/28/18 20:51 Dose: 650 mg Albuterol/Ipratropium (Duoneb) 3 ml NEB [id number] [facility] Last Admin: 12/29/18 06:36 Dose: 3 ml Aspirin (Ecotrin) 81 mg PO DAILY [facility] Last Admin: 12/29/18 08:17 Dose: 81 mg Atorvastatin Calcium (Lipitor) 20 mg PO HS [facility] Last Admin: 12/28/18 20:52 Dose: 20 mg Dextrose/Water (Dextrose 50%) 25 gm SLOW IVP PRN PRN PRN Reason: Hypoglycemia Famotidine (Pepcid) 20 mg PO DAILY [facility] Last Admin: 12/29/18 08:17 Dose: 20 mg Fluticasone Propionate (Flonase Nasal [place]) 0 gm NASAL DAILY [facility] Last Admin: 12/29/18 08:18 Dose: 1 spray Glucagon (Glucagon) 1 mg IM PRN PRN PRN Reason: Hypoglycemia Guaifenesin/Dextromethorphan (Robitussin Dm) 15 ml PO Q4H PRN PRN Reason: Cough Heparin Sodium (Porcine) (Heparin) 5,000 units SC BID [facility] Last Admin: 12/29/18 08:18 Dose: 5,000 units Insulin Human Regular 100 (units/ Sodium Chloride) 101 mls @ 0 mls/hr IVPB INF [facility]; Protocol Last Admin: 12/27/18 20:22 Dose: 101 mls Ceftriaxone Sodium 1 gm/ (Sodium Chloride) 100 mls @ 200 mls/hr IVPB Q24HR [facility] Last Admin: 12/29/18 08:24 Dose: 100 mls Dextrose/Water (D5w) 1,000 mls @ 0 mls/hr IV .Q0M PRN PRN Reason: Hypoglycemia Insulin Glargine 30 units/ (Miscellaneous Medication) 0.3 mls @ 0 mls/hr SC QAM [facility] Last Admin: 12/29/18 09:39 Dose: 0.3 mls Sodium Chloride (Normal Saline 0.9%) 1,000 mls @ 75 mls/hr IV .[id number] [facility] Insulin Human Lispro (Humalog) 0 units SC .MODERATE SLIDING SC PRN PRN Reason: Moderate Correctional Scale Last Admin: 12/29/18 05:36 Dose: 8 unit Insulin Human Lispro (Humalog) 0 units SC .BEDTIME SLIDING SC PRN PRN Reason: Bedtime Correctional Scale Last Admin: 12/28/18 20:54 Dose: 2 unit Levofloxacin (Levaquin) 250 mg PO 0600 [facility] Stop: 01/02/19 06:01 Last Admin: 12/29/18 04:53 Dose: 250 mg Metoprolol Tartrate (Lopressor) 12.5 mg PO BID [facility] Last Admin: 12/29/18 08:17 Dose: 12.5 mg Montelukast Sodium (Singulair) 10 mg PO HS [facility] Last Admin: 12/28/18 20:52 Dose: 10 mg Ondansetron HCl (Zofran) 4 mg IVP Q6H PRN PRN Reason: Nausea/Vomiting Saccharomyces Boulardii (Florastor) 250 mg PO DAILY [facility] Last Admin: 12/29/18 08:19 Dose: 250 mg Sodium Chloride (Flush - Normal Saline) 10 ml IVF Q12HR [facility] Last Admin: 12/29/18 08:19 Dose: 10 ml Sodium Chloride (Flush - Normal Saline) 10 ml IVF PRN PRN PRN Reason: Saline Flush Tamsulosin HCl (Flomax) 0.4 mg PO DAILY [facility] Last Admin: 12/29/18 08:18 Dose: 0.4 mg Zolpidem Tartrate (Ambien) 5 mg PO HSPRN PRN PRN Reason: Insomnia
--- NOTE | 2018-12-29 18:34 | PRG ---
DATE OF SERVICE: 12/29/2018 SUBJECTIVE: Patient was seen and examined at bedside and overnight events noted. Patient denies any shortness of breath or chest pain or palpitation. No history of nausea or vomiting or diarrhea or fever or chills or cramps. OBJECTIVE: GENERAL: This is a well-built male in no apparent distress. VITAL SIGNS: Temperature 97.5, pulse 78, respiratory rate 18, blood pressure 133/69. HEENT: Atraumatic, normocephalic. Oral mucosa is moist NECK: Supple. CARDIOVASCULAR: S1, S2 heard. Rate and rhythm regular. RESPIRATORY: Clear to auscultation. GASTROINTESTINAL: Abdomen is soft. MUSCULOSKELETAL: No tenderness. No edema. DERMATOLOGIC: No skin rash. NEUROLOGIC: Alert and awake and oriented X3. No focal neurologic deficits. Moving all the extremities. PSYCHIATRIC: Mood and affect normal. LABORATORY DATA: Potassium is 5.0, BUN is 95, creatinine is 3.2. ASSESSMENT AND PLAN: 1. Acute kidney injury on chronic kidney disease. Renal function is stable. 2. Hyponatremia. 3. Metabolic acidosis. 4. . 5. Type 2 diabetes. 6. Diabetic ketoacidosis. Renal function is better. Avoid nephrotoxins. We will follow up. Job ID: [id number]
[2018-12-29] MEDS ORDERED: Sterile Water 10 ML VIAL FS PRN (19:40)
[2018-12-29] MEDS ORDERED: Ziprasidone 20 MG VIAL IM SCH (19:45)
[2018-12-29] MEDS: Atorvastatin Calcium 20 MG TAB PO SCH (20:00)
[2018-12-29] MEDS: Montelukast Sodium 10 mg Tablet PO SCH (20:00)
[2018-12-30] MEDS: HumaLOG 300 UNITS/3 ML VIAL SC PRN ×3 (06:14→21:43)
[2018-12-30 07:01] LABS: Anion Gap 18 mmol/L (10-20); BUN (Urea Nitrogen) 78 mg/dL (8.4-25.7); Calc. Creatinine Clearance 37 mL/min (70-130); Calcium 8.7 mg/dL (7.8-10.44); Carbon Dioxide 13 mmol/L (23-31); Chloride 109 mmol/L (98-107); Estimated GFR-MDRD 25; Glucose 280 mg/dL (83-110); Potassium 4.5 mmol/L (3.5-5.1); Sodium 135 mmol/L (136-145)
[2018-12-30 07:27] LABS: Anisocytosis SLIGHT = 6-15 cells (100X) (0-5/hpf); Band 2 % (5-11); Hemoglobin 13.7 g/dL (14.0-18.0); Lymphocytes 1 % (21-51); MDiff Complete? YES; Mean Corpuscular HGB CONC 33.6 g/dL (32.0-36.0); Mean Corpuscular Hemoglobin 30.9 pg (27.0-31.0); Mean Platelet Volume 8.9 fL (7.4-10.4); Microcytosis SLIGHT = 6-15 cells (100X) (0-5/hpf); Monocytes 10 % (0-10); Neutrophil 81 % (42-75); Platelet Count 173 thou/uL (130-400); Platelet Morphology Comment Appears Adequate; RBC Distribution Width 13.6 % (11.5-14.5); Reactive Lymphocytes 5 % (0-10); Red Blood Cell (RBC) Count 4.45 mill/uL (4.70-6.10); White Blood Cell (WBC) Count 13.5 thou/uL (4.8-10.8)
--- NOTE | 2018-12-30 08:33 | PDOC.PN ---
- Subjective Encounter Start Date: 12/30/18 Encounter Start Time: 06:40 -: old records requested/rev pt was confused last night, he required restraint for his safety, this morning he is resting - Objective MAR Reviewed: Yes Vital Signs & Weight: Vital Signs (12 hours) Temp 12/30/18 07:08 97.2 F L 12/30/18 03:54 97.4 F L 12/30/18 00:00 97.6 F Weight Weight 234 lb 6.4 oz Most Recent Monitor Data Heart Rate from ECG 105 NIBP 139/100 NIBP BP-Mean 113 Respiration from ECG 36 SpO2 99 I&O: 12/29/18 12/30/18 12/31/18 06:59 06:59 06:59 Intake Total 3385 1230 Output Total 1450 1600 Balance 1935 -370 Result Diagrams: 12/30/18 06:03 12/30/18 06:03 Additional Labs: Accuchecks 12/30/18 12/29/18 12/29/18 06:04 20:57 16:45 POC Glucose 254 H 267 H 346 H 12/29/18 10:37 POC Glucose 336 H EKG Reviewed by me: Yes (SR) Phys Exam - Physical Examination Constitutional: NAD hard of hearing HEENT: PERRLA, moist MMs, sclera anicteric Neck: no JVD, supple Respiratory: no wheezing, no rales, no rhonchi Cardiovascular: RRR, no significant murmur, no rub Gastrointestinal: soft, non-tender, no distention, positive bowel sounds Musculoskeletal: no edema, pulses present Neurological: non-focal, moves all 4 limbs Lymphatic: no nodes Psychiatric: normal affect Skin: no rash, normal turgor Dx/Plan (1) Acute metabolic encephalopathy Code(s): G93.41 - METABOLIC ENCEPHALOPATHY Status: Acute (2) Acute kidney failure Status: Acute (3) Bacteremia due to Escherichia coli Code(s): R78.81 - BACTEREMIA Status: Acute (4) Community acquired bacterial pneumonia Code(s): J15.9 - UNSPECIFIED BACTERIAL PNEUMONIA Status: Acute (5) DKA (diabetic ketoacidoses) Code(s): E13.10 - OTH DIABETES MELLITUS WITH KETOACIDOSIS WITHOUT COMA Status : Acute Qualifiers: Diabetes mellitus type: type 2 (6) Hyperglycemia due to type 2 diabetes mellitus Code(s): E11.65 - TYPE 2 DIABETES MELLITUS WITH HYPERGLYCEMIA Status: Acute (7) Hyponatremia Code(s): E87.1 - HYPO-OSMOLALITY AND HYPONATREMIA Status: Acute (8) Metabolic acidosis Code(s): E87.2 - ACIDOSIS Status: Acute (9) Sepsis with acute organ dysfunction Code(s): A41.9 - SEPSIS, UNSPECIFIED ORGANISM; R65.20 - SEVERE SEPSIS WITHOUT SEPTIC SHOCK Status: Acute (10) Sepsis with hypotension Code(s): A41.9 - SEPSIS, UNSPECIFIED ORGANISM; I95.9 - HYPOTENSION, UNSPECIFIED Status: Acute (11) UTI (urinary tract infection) Status: Acute (12) Atrial fibrillation and flutter Code(s): I48.91 - UNSPECIFIED ATRIAL FIBRILLATION; I48.92 - UNSPECIFIED ATRIAL FLUTTER Status: Chronic Comment: rate controlled and on elliquis (13) BPH (benign prostatic hyperplasia) Code(s): N40.0 - BENIGN PROSTATIC HYPERPLASIA WITHOUT LOWER URINRY TRACT SYMP Status: Chronic (14) COPD (chronic obstructive pulmonary disease) Status: Chronic (15) Diabetes type 2, controlled Code(s): E11.9 - TYPE 2 DIABETES MELLITUS WITHOUT COMPLICATIONS Status: Chronic (16) Dyslipidemia Code(s): E78.5 - HYPERLIPIDEMIA, UNSPECIFIED Status: Chronic (17) Hypertension Code(s): I10 - ESSENTIAL (PRIMARY) HYPERTENSION Status: Chronic - Plan cont current plan of care, plan discussed w/ family, continue antibiotics, PT/OT , social professionals * his renal function improving * his AMS may be now part of ing but still metabolic etiology and infection contributing * updated to family * medication reviewed as below * symptomatic treatment * will need placement * monitor labs . Review of Systems - Review of Systems Other: not reliable due to encephalopathy - Medications/Allergies Allergies/Adverse Reactions: Allergies Allergy/AdvReac Type Severity Reaction Status Date / Time No Known Allergies Allergy Unverified 12/27/18 00:51 Medications: Current Medications Acetaminophen (Tylenol) 650 mg PO Q4H PRN PRN Reason: Headache/Fever/Mild Pain (1-3) Last Admin: 12/28/18 20:51 Dose: 650 mg Albuterol/Ipratropium (Duoneb) 3 ml NEB [id number] [facility] Last Admin: 12/30/18 02:44 Dose: Not Given Apixaban (Eliquis) 5 mg PO BID [facility] Aspirin (Ecotrin) 81 mg PO DAILY [facility] Last Admin: 12/29/18 08:17 Dose: 81 mg Atorvastatin Calcium (Lipitor) 20 mg PO HS [facility] Last Admin: 12/29/18 20:00 Dose: 20 mg Dextrose/Water (Dextrose 50%) 25 gm SLOW IVP PRN PRN PRN Reason: Hypoglycemia Famotidine (Pepcid) 20 mg PO DAILY [facility] Last Admin: 12/29/18 08:17 Dose: 20 mg Fluticasone Propionate (Flonase Nasal [place]) 0 gm NASAL DAILY [facility] Last Admin: 12/29/18 08:18 Dose: 1 spray Glucagon (Glucagon) 1 mg IM PRN PRN PRN Reason: Hypoglycemia Guaifenesin/Dextromethorphan (Robitussin Dm) 15 ml PO Q4H PRN PRN Reason: Cough Insulin Human Regular 100 (units/ Sodium Chloride) 101 mls @ 0 mls/hr IVPB INF [facility]; Protocol Last Admin: 12/27/18 20:22 Dose: 101 mls Ceftriaxone Sodium 1 gm/ (Sodium Chloride) 100 mls @ 200 mls/hr IVPB Q24HR [facility] Last Admin: 12/29/18 08:24 Dose: 100 mls Dextrose/Water (D5w) 1,000 mls @ 0 mls/hr IV .Q0M PRN PRN Reason: Hypoglycemia Insulin Glargine 30 units/ (Miscellaneous Medication) 0.3 mls @ 0 mls/hr SC QAM [facility] Last Admin: 12/29/18 09:39 Dose: 0.3 mls Sodium Chloride (Normal Saline 0.9%) 1,000 mls @ 75 mls/hr IV .[id number] [facility] Last Admin: 12/29/18 21:22 Dose: 1,000 mls Insulin Human Lispro (Humalog) 0 units SC .MODERATE SLIDING SC PRN PRN Reason: Moderate Correctional Scale Last Admin: 12/30/18 06:14 Dose: 6 unit Insulin Human Lispro (Humalog) 0 units SC .BEDTIME SLIDING SC PRN PRN Reason: Bedtime Correctional Scale Last Admin: 12/29/18 21:18 Dose: 3 unit Levofloxacin (Levaquin) 250 mg PO 0600 [facility] Stop: 01/02/19 06:01 Last Admin: 12/30/18 06:13 Dose: 250 mg Metoprolol Tartrate (Lopressor) 25 mg PO BID [facility] Last Admin: 12/29/18 20:01 Dose: 25 mg Montelukast Sodium (Singulair) 10 mg PO HS [facility] Last Admin: 12/29/18 20:00 Dose: 10 mg Ondansetron HCl (Zofran) 4 mg IVP Q6H PRN PRN Reason: Nausea/Vomiting Saccharomyces Boulardii (Florastor) 250 mg PO DAILY [facility] Last Admin: 12/29/18 08:19 Dose: 250 mg Sodium Chloride (Flush - Normal Saline) 10 ml IVF Q12HR [facility] Last Admin: 12/29/18 20:05 Dose: Not Given Sodium Chloride (Flush - Normal Saline) 10 ml IVF PRN PRN PRN Reason: Saline Flush Tamsulosin HCl (Flomax) 0.4 mg PO DAILY [facility] Last Admin: 12/29/18 08:18 Dose: 0.4 mg Zolpidem Tartrate (Ambien) 5 mg PO HSPRN PRN PRN Reason: Insomnia
[2018-12-30] MEDS: Fluticasone Propionate Nasal Spray 16 gm Bottle NASAL SCH (10:15)
[2018-12-30] MEDS: cefTRIAXone\\ROCEPHIN 1 GM in Sodium Chloride 0.9% 100 ML IVPB SCH (10:15)
[2018-12-30] MEDS: Metoprolol Tartrate 25 MG TAB PO SCH ×2 (10:16→21:41)
[2018-12-30] MEDS: Saccharomyces boulardii 250 MG CAP PO SCH (10:16)
[2018-12-30] MEDS: Apixaban 5 MG TAB PO SCH ×2 (10:16→21:41)
[2018-12-30] MEDS: Famotidine 20 MG TAB PO SCH (10:17)
[2018-12-30] MEDS: Tamsulosin HCl 0.4 MG CAP PO SCH (10:17)
[2018-12-30] MEDS: Aspirin 81 mg Enteric Coated Tablet PO SCH (10:17)
[2018-12-30] MEDS: Insulin Glargine 30 UNITS in Pre-Filled Syringe 1 EACH SC SCH (10:18)
[2018-12-30] MEDS ORDERED: Sodium Chloride 0.9% 1,000 ML IV SCH (11:32)
[2018-12-30] MEDS ORDERED: Sodium Bicarbonate 150 MEQ in Dextrose 5% in Water 1,000 ML IV SCH (14:15)
--- NOTE | 2018-12-30 15:13 | PRG ---
DATE OF SERVICE: 12/30/2018 SUBJECTIVE: The patient is resting in bed, does not appear to be in any distress. OBJECTIVE: VITAL SIGNS: On exam; temperature 97.0, pulse 84, respirations 14, O2 saturation 99% on room air, and blood pressure 160/90. HEENT: Unremarkable. NECK: No JVD. LUNGS: Fairly clear. CARDIAC: S1 and S2. Regular. ABDOMEN: Soft. EXTREMITIES: No edema. LABORATORY DATA: White blood cell count 13, hematocrit 40, and platelet count 173. Sodium 135, potassium 4.5, chloride 109, CO2 of 13, BUN 78, creatinine 2.5, and glucose 210. ASSESSMENT: 1. Azotemia. 2. Diabetes. 3. Pneumonia. PLAN: He appears to be stable and can be transferred out to the medical or telemetry floors. Continue antibiotics. Job ID: [id number]
--- NOTE | 2018-12-30 15:16 | PRG ---
DATE OF SERVICE: 12/30/2018 SUBJECTIVE: Patient was seen and examined at bedside and overnight events noted. Patient denies any shortness of breath or chest pain or palpitation. No history of nausea or vomiting or diarrhea or fever or chills or cramps. OBJECTIVE: GENERAL: This is a well-built male, in no apparent distress. VITAL SIGNS: Temperature 97.6. Heart rate 84. Respiratory rate 14. Blood pressure 162/90. HEENT: Atraumatic, normocephalic. Oral mucosa is moist NECK: Supple. CARDIOVASCULAR: S1, S2 heard. Rate and rhythm regular. RESPIRATORY: Clear to auscultation. GASTROINTESTINAL: Abdomen is soft. MUSCULOSKELETAL: No tenderness. No edema. DERMATOLOGIC: No skin rash. NEUROLOGIC: Alert and awake and oriented X3. No focal neurologic deficits. Moving all the extremities. PSYCHIATRIC: Mood and affect normal. LABORATORY DATA: Potassium is 4.5, BUN is 78, and creatinine is 2.5. ASSESSMENT AND PLAN: 1. Acute kidney injury on chronic kidney disease. 2. Hyponatremia. Limit fluid. 3. Metabolic acidosis. 4. Type 2 diabetes. 5. Diabetic ketoacidosis. Overall renal function is getting better. Avoid nephrotoxins. We will follow. Job ID: [id number]
[2018-12-30 17:36] LABS: Creatinine, Urine 33.89 mg/dL (63-166)
[2018-12-30] MEDS: Montelukast Sodium 10 mg Tablet PO SCH (21:41)
[2018-12-30] MEDS: Atorvastatin Calcium 20 MG TAB PO SCH (21:41)
[2018-12-31 05:19] LABS: Anion Gap 12 mmol/L (10-20); BUN (Urea Nitrogen) 61 mg/dL (8.4-25.7); Calc. Creatinine Clearance 47 mL/min (70-130); Calcium 8.2 mg/dL (7.8-10.44); Carbon Dioxide 20 mmol/L (23-31); Chloride 106 mmol/L (98-107); Estimated GFR-MDRD 33; Glucose 303 mg/dL (83-110); Potassium 4.1 mmol/L (3.5-5.1); Sodium 134 mmol/L (136-145)
[2018-12-31] MEDS: HumaLOG 300 UNITS/3 ML VIAL SC PRN ×4 (05:55→20:25)
[2018-12-31] MEDS: Aspirin 81 mg Enteric Coated Tablet PO SCH (08:41)
[2018-12-31] MEDS: Saccharomyces boulardii 250 MG CAP PO SCH (08:41)
[2018-12-31] MEDS: Fluticasone Propionate Nasal Spray 16 gm Bottle NASAL SCH (08:41)
[2018-12-31] MEDS: Apixaban 5 MG TAB PO SCH ×2 (08:42→20:24)
[2018-12-31] MEDS: Metoprolol Tartrate 25 MG TAB PO SCH ×2 (08:42→20:24)
[2018-12-31] MEDS: Tamsulosin HCl 0.4 MG CAP PO SCH (08:42)
[2018-12-31] MEDS: Famotidine 20 MG TAB PO SCH (08:42)
[2018-12-31] MEDS: cefTRIAXone\\ROCEPHIN 1 GM in Sodium Chloride 0.9% 100 ML IVPB SCH (08:43)
[2018-12-31] MEDS: Insulin Glargine 20 UNITS in Pre-Filled Syringe 1 EACH SC SCH ×2 (09:53→20:28)
--- NOTE | 2018-12-31 12:04 | PRG ---
DATE OF SERVICE: 12/31/2018 SUBJECTIVE: The patient is awake, alert, in no distress. OBJECTIVE: VITAL SIGNS: Temperature 98.8, pulse 90, blood pressure 132/74, O2 saturation 100%. HEENT: Unremarkable. NECK: No adenopathy or JVD. LUNGS: Clear anteriorly. CARDIAC: S1, S2. Regular. ABDOMEN: Soft. EXTREMITIES: No edema. LABORATORY DATA: Sodium 134, potassium 4.1, chloride 106, CO2 of 20, BUN 61, creatinine 2.0, glucose 303. ASSESSMENT: 1. Stable pulmonary status. 2. Pneumonia. 3. Diabetes. 4. Azotemia. PLAN: He is stable for transfer out of the [facility]. I believe he could probably go to the medical floor. He will continue antibiotics. He will continue slow hydration at the discretion of the tennis centre manager. Job ID: [id number]
[2018-12-31] MEDS: Sodium Chloride 0.9% 1,000 ML IV SCH (12:13)
--- NOTE | 2018-12-31 12:49 | PDOC.PN ---
- Subjective Encounter Start Date: 12/31/18 Encounter Start Time: 10:30 Patient seen and examined. No new complaints. No overnight events - Objective MAR Reviewed: Yes Vital Signs & Weight: Vital Signs (12 hours) Temp Pulse Resp Pulse Ox 12/31/18 11:14 98.8 F 12/31/18 07:46 100 12/31/18 07:44 88 25 H 100 12/31/18 07:08 100 12/31/18 07:06 98.6 F 12/31/18 04:10 98.0 F Weight Weight 234 lb 6.4 oz Most Recent Monitor Data Heart Rate from ECG 90 NIBP 132/74 NIBP BP-Mean 93 Respiration from ECG 24 SpO2 100 I&O: 12/30/18 12/31/18 01/01/19 06:59 06:59 06:59 Intake Total 1230 2360 Output Total 1600 200 Balance -370 2160 Result Diagrams: 12/30/18 06:03 12/31/18 04:22 Additional Labs: Accuchecks 12/31/18 12/31/18 12/30/18 10:30 05:56 20:06 POC Glucose 280 H 262 H 333 H 12/30/18 16:19 POC Glucose 252 H EKG Reviewed by me: Yes Phys Exam - Physical Examination Constitutional: NAD HEENT: PERRLA, moist MMs, sclera anicteric Neck: no JVD, supple Respiratory: no wheezing, no rales, no rhonchi Cardiovascular: no significant murmur, no rub, irregular Gastrointestinal: soft, non-tender, no distention, positive bowel sounds Musculoskeletal: no edema, pulses present Neurological: non-focal, normal sensation Lymphatic: no nodes Psychiatric: normal affect Skin: no rash, normal turgor Dx/Plan (1) Acute metabolic encephalopathy Code(s): G93.41 - METABOLIC ENCEPHALOPATHY Status: Acute (2) Acute kidney failure Status: Acute (3) Bacteremia due to Escherichia coli Code(s): R78.81 - BACTEREMIA Status: Acute (4) Community acquired bacterial pneumonia Code(s): J15.9 - UNSPECIFIED BACTERIAL PNEUMONIA Status: Acute (5) DKA (diabetic ketoacidoses) Code(s): E13.10 - OTH DIABETES MELLITUS WITH KETOACIDOSIS WITHOUT COMA Status : Acute Qualifiers: Diabetes mellitus type: type 2 (6) Hyperglycemia due to type 2 diabetes mellitus Code(s): E11.65 - TYPE 2 DIABETES MELLITUS WITH HYPERGLYCEMIA Status: Acute (7) Hyponatremia Code(s): E87.1 - HYPO-OSMOLALITY AND HYPONATREMIA Status: Acute (8) Metabolic acidosis Code(s): E87.2 - ACIDOSIS Status: Acute (9) Sepsis with acute organ dysfunction Code(s): A41.9 - SEPSIS, UNSPECIFIED ORGANISM; R65.20 - SEVERE SEPSIS WITHOUT SEPTIC SHOCK Status: Acute (10) Sepsis with hypotension Code(s): A41.9 - SEPSIS, UNSPECIFIED ORGANISM; I95.9 - HYPOTENSION, UNSPECIFIED Status: Acute (11) UTI (urinary tract infection) Status: Acute (12) Atrial fibrillation and flutter Code(s): I48.91 - UNSPECIFIED ATRIAL FIBRILLATION; I48.92 - UNSPECIFIED ATRIAL FLUTTER Status: Chronic Comment: rate controlled and on elliquis (13) BPH (benign prostatic hyperplasia) Code(s): N40.0 - BENIGN PROSTATIC HYPERPLASIA WITHOUT LOWER URINRY TRACT SYMP Status: Chronic (14) COPD (chronic obstructive pulmonary disease) Status: Chronic (15) Diabetes type 2, controlled Code(s): E11.9 - TYPE 2 DIABETES MELLITUS WITHOUT COMPLICATIONS Status: Chronic (16) Dyslipidemia Code(s): E78.5 - HYPERLIPIDEMIA, UNSPECIFIED Status: Chronic (17) Hypertension Code(s): I10 - ESSENTIAL (PRIMARY) HYPERTENSION Status: Chronic - Plan cont current plan of care, plan discussed w/ family, continue antibiotics, PT/OT , forensic social worker * medication reviewed as below * symptomatic treatment * transfer to medical * will need placement * repeat labs tomorrow * continue antibiotics * discussed with family. Review of Systems - Review of Systems ENT: negative: Ear Pain, Ear Discharge, Nose Pain, Nose Discharge, Nose Congestion, Mouth Pain, Mouth Swelling, Throat Pain, Throat Swelling, Other Respiratory: negative: Cough, Dry, Shortness of Breath, Hemoptysis, SOB with Excertion, Pleuritic Pain, Sputum, Wheezing Cardiovascular: negative: chest pain, palpitations, orthopnea, paroxysmal nocturnal dyspnea, edema, light headedness, other Gastrointestinal: negative: Nausea, Vomiting, Abdominal Pain, Diarrhea, Constipation, Melena, Hematochezia, Other Genitourinary: negative: Dysuria, Frequency, Incontinence, Hematuria, Retention , Other Musculoskeletal: negative: Neck Pain, Shoulder Pain, Arm Pain, Back Pain, Hand Pain, Leg Pain, Foot Pain, Other Skin: negative: Rash, Lesions, Arnold, Bruising, Other - Medications/Allergies Allergies/Adverse Reactions: Allergies Allergy/AdvReac Type Severity Reaction Status Date / Time No Known Allergies Allergy Unverified 12/27/18 00:51 Medications: Current Medications Acetaminophen (Tylenol) 650 mg PO Q4H PRN PRN Reason: Headache/Fever/Mild Pain (1-3) Last Admin: 12/28/18 20:51 Dose: 650 mg Albuterol/Ipratropium (Duoneb) 3 ml NEB [id number] [facility] Last Admin: 12/31/18 07:44 Dose: 3 ml Apixaban (Eliquis) 5 mg PO BID [facility] Last Admin: 12/31/18 08:42 Dose: 5 mg Aspirin (Ecotrin) 81 mg PO DAILY [facility] Last Admin: 12/31/18 08:41 Dose: 81 mg Atorvastatin Calcium (Lipitor) 20 mg PO [facility] Last Admin: 12/30/18 21:41 Dose: 20 mg Dextrose/Water (Dextrose 50%) 25 gm SLOW IVP PRN PRN PRN Reason: Hypoglycemia Famotidine (Pepcid) 20 mg PO DAILY [facility] Last Admin: 12/31/18 08:42 Dose: 20 mg Fluticasone Propionate (Flonase Nasal [place]) 0 gm NASAL DAILY [facility] Last Admin: 12/31/18 08:41 Dose: 2 spray Glucagon (Glucagon) 1 mg IM PRN PRN PRN Reason: Hypoglycemia Guaifenesin/Dextromethorphan (Robitussin Dm) 15 ml PO Q4H PRN PRN Reason: Cough Ceftriaxone Sodium 1 gm/ (Sodium Chloride) 100 mls @ 200 mls/hr IVPB Q24HR [facility] Last Admin: 12/31/18 08:43 Dose: 100 mls Dextrose/Water (D5w) 1,000 mls @ 0 mls/hr IV .Q0M PRN PRN Reason: Hypoglycemia Insulin Glargine 20 units/ (Miscellaneous Medication) 0.2 mls @ 0 mls/hr SC HS [facility] Insulin Glargine 20 units/ (Miscellaneous Medication) 0.2 mls @ 0 mls/hr SC QAM [facility] Last Admin: 12/31/18 09:53 Dose: 0.2 mls Sodium Chloride (Normal Saline 0.9%) 1,000 mls @ 50 mls/hr IV .Q20H [facility] Last Admin: 12/31/18 12:13 Dose: 1,000 mls Insulin Human Lispro (Humalog) 0 units SC .AGGRESSIVE SLIDING PRN PRN Reason: Aggressive Correctional Scale Insulin Human Lispro (Humalog) 0 units SC .BEDTIME SLIDING SC PRN PRN Reason: Bedtime Correctional Scale Levofloxacin (Levaquin) 250 mg PO 0600 [facility] Stop: 01/02/19 06:01 Last Admin: 12/31/18 05:55 Dose: 250 mg Metoprolol Tartrate (Lopressor) 25 mg PO BID [facility] Last Admin: 12/31/18 08:42 Dose: 25 mg Montelukast Sodium (Singulair) 10 mg PO HS [facility] Last Admin: 12/30/18 21:41 Dose: 10 mg Ondansetron HCl (Zofran) 4 mg IVP Q6H PRN PRN Reason: Nausea/Vomiting Saccharomyces Boulardii (Florastor) 250 mg PO DAILY [facility] Last Admin: 12/31/18 08:41 Dose: 250 mg Sodium Chloride (Flush - Normal Saline) 10 ml IVF Q12HR [facility] Last Admin: 12/31/18 08:56 Dose: Not Given Sodium Chloride (Flush - Normal Saline) 10 ml IVF PRN PRN PRN Reason: Saline Flush Tamsulosin HCl (Flomax) 0.4 mg PO DAILY [facility] Last Admin: 12/31/18 08:42 Dose: 0.4 mg Zolpidem Tartrate (Ambien) 5 mg PO HSPRN PRN PRN Reason: Insomnia
[2018-12-31] MEDS: Atorvastatin Calcium 20 MG TAB PO SCH (20:24)
[2018-12-31] MEDS: Montelukast Sodium 10 mg Tablet PO SCH (20:24)
--- NOTE | 2018-12-31 20:29 | PRG ---
DATE OF SERVICE: 12/31/2018 SUBJECTIVE: Patient was seen and examined at bedside and overnight events noted. Patient denies any shortness of breath or chest pain or palpitation. No history of nausea or vomiting or diarrhea or fever or chills or cramps. OBJECTIVE: GENERAL: This is an elderly male, in no apparent distress. VITAL SIGNS: Temperature 98.6. Heart rate 79. Respiratory rate 18. Blood pressure 143/93. HEENT: Atraumatic, normocephalic. Oral mucosa is moist NECK: Supple. CARDIOVASCULAR: S1, S2 heard. Rate and rhythm regular. RESPIRATORY: Clear to auscultation. GASTROINTESTINAL: Abdomen is soft. MUSCULOSKELETAL: No tenderness. No edema. DERMATOLOGIC: No skin rash. NEUROLOGIC: Alert and awake and oriented X3. No focal neurologic deficits. Moving all the extremities. PSYCHIATRIC: Mood and affect normal. LABORATORY DATA: Potassium is 4.1, BUN is 61, creatinine is 2.07. ASSESSMENT AND PLAN: 1. Acute kidney injury on chronic kidney disease, stage 3, monitor. 2. Hyponatremia. Limit fluid intake. 3. Metabolic acidosis. 4. Diabetic ketoacidosis. 5. Renal function getting better, acidosis is stable. Continue close monitoring. Job ID: [id number]
[2019-01-01] MEDS: HumaLOG 300 UNITS/3 ML VIAL SC PRN ×4 (05:41→20:04)
[2019-01-01 06:33] LABS: #Lymphocytes 0.6 thou/uL (1.20-3.40); #Monocytes 0.7 thou/uL (0.11-0.59); %Basophils 0.1 % (0.0-1.0); %Eosinophils 0.4 % (0.0-10.0); %Lymphocytes 5.4 % (21.0-51.0); %Monocytes 6.4 % (0.0-10.0); %Neutrophils 87.6 % (42.0-75.0); Mean Corpuscular HGB CONC 33.5 g/dL (32.0-36.0); Mean Corpuscular Hemoglobin 31.5 pg (27.0-31.0); Mean Platelet Volume 8.2 fL (7.4-10.4); Platelet Count 162 thou/uL (130-400); RBC Distribution Width 13.6 % (11.5-14.5); Red Blood Cell (RBC) Count 4.13 mill/uL (4.70-6.10); White Blood Cell (WBC) Count 11.4 thou/uL (4.8-10.8)
[2019-01-01] MEDS: Sodium Chloride 0.9% 1,000 ML IV SCH (06:36)
[2019-01-01 06:53] LABS: ALT (SGPT) 21 U/L (8-55); AST (SGOT) 31 U/L (5-34); Albumin 2.3 g/dL (3.4-4.8); Alkaline Phosphatase 216 U/L (40-150); Anion Gap 12 mmol/L (10-20); BUN (Urea Nitrogen) 43 mg/dL (8.4-25.7); Bilirubin, Total 1.8 mg/dL (0.2-1.2); Calc. Creatinine Clearance 46 mL/min (70-130); Calcium 8.1 mg/dL (7.8-10.44); Carbon Dioxide 24 mmol/L (23-31); Chloride 105 mmol/L (98-107); Estimated GFR-MDRD 32; Globulin 3.5 g/dL (2.4-3.5); Glucose 216 mg/dL (83-110); Potassium 4.1 mmol/L (3.5-5.1); Protein, Total 5.8 g/dL (5.8-8.1); Sodium 137 mmol/L (136-145)
[2019-01-01] MEDS: cefTRIAXone\\ROCEPHIN 1 GM in Sodium Chloride 0.9% 100 ML IVPB SCH (08:12)
[2019-01-01] MEDS: Apixaban 5 MG TAB PO SCH ×2 (08:13→19:59)
[2019-01-01] MEDS: Insulin Glargine 20 UNITS in Pre-Filled Syringe 1 EACH SC SCH ×2 (08:13→20:00)
[2019-01-01] MEDS: Saccharomyces boulardii 250 MG CAP PO SCH (08:13)
[2019-01-01] MEDS: Famotidine 20 MG TAB PO SCH (08:13)
[2019-01-01] MEDS: Tamsulosin HCl 0.4 MG CAP PO SCH (08:13)
[2019-01-01] MEDS: Aspirin 81 mg Enteric Coated Tablet PO SCH (08:13)
[2019-01-01] MEDS: Metoprolol Tartrate 25 MG TAB PO SCH ×3 (08:13→20:00)
[2019-01-01] MEDS: Fluticasone Propionate Nasal Spray 16 gm Bottle NASAL SCH (08:22)
--- NOTE | 2019-01-01 10:49 | PDOC.PN ---
- Subjective Encounter Start Date: 01/01/19 Encounter Start Time: 08:20 Patient seen and examined. No new complaints. No overnight events - Objective MAR Reviewed: Yes Vital Signs & Weight: Vital Signs (12 hours) Temp Pulse Resp BP Pulse Ox 01/01/19 07:38 98.0 F 107 H 22 H 136/68 98 01/01/19 06:59 100 16 01/01/19 04:44 99.5 F 94 16 135/86 97 01/01/19 02:23 83 18 100 01/01/19 00:13 99.0 F 88 16 130/80 97 Weight Weight 234 lb 6.4 oz Most Recent Monitor Data Heart Rate from ECG 84 NIBP 114/91 NIBP BP-Mean 98 Respiration from ECG 25 SpO2 100 I&O: 12/31/18 01/01/19 01/02/19 06:59 06:59 06:59 Intake Total 2360 1000 Output Total 200 Balance 2160 1000 Result Diagrams: 01/01/19 06:16 01/01/19 06:16 Additional Labs: Accuchecks 01/01/19 12/31/18 12/31/18 04:36 19:08 16:23 POC Glucose 166 H 299 H 292 H Phys Exam - Physical Examination Constitutional: NAD HEENT: PERRLA, moist MMs, sclera anicteric Neck: no JVD, supple Respiratory: no wheezing, no rales, no rhonchi Cardiovascular: no significant murmur, no rub, irregular Gastrointestinal: soft, non-tender, no distention, positive bowel sounds Musculoskeletal: pulses present, edema present Neurological: non-focal, normal sensation Lymphatic: no nodes Psychiatric: normal affect Skin: no rash, normal turgor Dx/Plan (1) Acute metabolic encephalopathy Code(s): G93.41 - METABOLIC ENCEPHALOPATHY Status: Resolved (2) Acute kidney failure Status: Acute (3) Bacteremia due to Escherichia coli Code(s): R78.81 - BACTEREMIA Status: Acute (4) Community acquired bacterial pneumonia Code(s): J15.9 - UNSPECIFIED BACTERIAL PNEUMONIA Status: Acute (5) DKA (diabetic ketoacidoses) Code(s): E13.10 - OTH DIABETES MELLITUS WITH KETOACIDOSIS WITHOUT COMA Status : Acute Qualifiers: Diabetes mellitus type: type 2 (6) Hyperglycemia due to type 2 diabetes mellitus Code(s): E11.65 - TYPE 2 DIABETES MELLITUS WITH HYPERGLYCEMIA Status: Acute (7) Hyponatremia Code(s): E87.1 - HYPO-OSMOLALITY AND HYPONATREMIA Status: Acute (8) Metabolic acidosis Code(s): E87.2 - ACIDOSIS Status: Acute (9) Sepsis with acute organ dysfunction Code(s): A41.9 - SEPSIS, UNSPECIFIED ORGANISM; R65.20 - SEVERE SEPSIS WITHOUT SEPTIC SHOCK Status: Acute (10) Sepsis with hypotension Code(s): A41.9 - SEPSIS, UNSPECIFIED ORGANISM; I95.9 - HYPOTENSION, UNSPECIFIED Status: Acute (11) UTI (urinary tract infection) Status: Acute (12) Atrial fibrillation and flutter Code(s): I48.91 - UNSPECIFIED ATRIAL FIBRILLATION; I48.92 - UNSPECIFIED ATRIAL FLUTTER Status: Chronic Comment: rate controlled and on elliquis (13) BPH (benign prostatic hyperplasia) Code(s): N40.0 - BENIGN PROSTATIC HYPERPLASIA WITHOUT LOWER URINRY TRACT SYMP Status: Chronic (14) COPD (chronic obstructive pulmonary disease) Status: Chronic (15) Diabetes type 2, controlled Code(s): E11.9 - TYPE 2 DIABETES MELLITUS WITHOUT COMPLICATIONS Status: Chronic (16) Dyslipidemia Code(s): E78.5 - HYPERLIPIDEMIA, UNSPECIFIED Status: Chronic (17) Hypertension Code(s): I10 - ESSENTIAL (PRIMARY) HYPERTENSION Status: Chronic - Plan cont current plan of care, continue antibiotics, PT/OT, criminal justice social worker * continue elliquis * continue rocephin and po levaquin * repeat labs tomorrow and blood culture * will need placement * medication reviewed as below * symptomatic treatment * PT/OT. Review of Systems - Review of Systems ENT: negative: Ear Pain, Ear Discharge, Nose Pain, Nose Discharge, Nose Congestion, Mouth Pain, Mouth Swelling, Throat Pain, Throat Swelling, Other Respiratory: negative: Cough, Dry, Shortness of Breath, Hemoptysis, SOB with Excertion, Pleuritic Pain, Sputum, Wheezing Cardiovascular: negative: chest pain, palpitations, orthopnea, paroxysmal nocturnal dyspnea, edema, light headedness, other Gastrointestinal: negative: Nausea, Vomiting, Abdominal Pain, Diarrhea, Constipation, Melena, Hematochezia, Other Genitourinary: negative: Dysuria, Frequency, Incontinence, Hematuria, Retention , Other Musculoskeletal: negative: Neck Pain, Shoulder Pain, Arm Pain, Back Pain, Hand Pain, Leg Pain, Foot Pain, Other - Medications/Allergies Allergies/Adverse Reactions: Allergies Allergy/AdvReac Type Severity Reaction Status Date / Time No Known Allergies Allergy Unverified 12/27/18 00:51 Medications: Current Medications Acetaminophen (Tylenol) 650 mg PO Q4H PRN PRN Reason: Headache/Fever/Mild Pain (1-3) Last Admin: 12/28/18 20:51 Dose: 650 mg Albuterol/Ipratropium (Duoneb) 3 ml NEB [id number] [facility] Last Admin: 01/01/19 06:59 Dose: 3 ml Apixaban (Eliquis) 5 mg PO BID [facility] Last Admin: 01/01/19 08:13 Dose: 5 mg Aspirin (Ecotrin) 81 mg PO DAILY [facility] Last Admin: 01/01/19 08:13 Dose: 81 mg Atorvastatin Calcium (Lipitor) 40 mg PO [facility] Dextrose/Water (Dextrose 50%) 25 gm SLOW IVP PRN PRN PRN Reason: Hypoglycemia Famotidine (Pepcid) 20 mg PO DAILY [facility] Last Admin: 01/01/19 08:13 Dose: 20 mg Fluticasone Propionate (Flonase Nasal [place]) 0 gm NASAL DAILY [facility] Last Admin: 01/01/19 08:22 Dose: Not Given Glucagon (Glucagon) 1 mg IM PRN PRN PRN Reason: Hypoglycemia Guaifenesin/Dextromethorphan (Robitussin Dm) 15 ml PO Q4H PRN PRN Reason: Cough Ceftriaxone Sodium 1 gm/ (Sodium Chloride) 100 mls @ 200 mls/hr IVPB Q24HR [facility] Last Admin: 01/01/19 08:12 Dose: 100 mls Dextrose/Water (D5w) 1,000 mls @ 0 mls/hr IV .Q0M PRN PRN Reason: Hypoglycemia Insulin Glargine 20 units/ (Miscellaneous Medication) 0.2 mls @ 0 mls/hr SC HS [facility] Last Admin: 12/31/18 20:28 Dose: 0.2 mls Insulin Glargine 20 units/ (Miscellaneous Medication) 0.2 mls @ 0 mls/hr SC QAM [facility] Last Admin: 01/01/19 08:13 Dose: 0.2 mls Sodium Chloride (Normal Saline 0.9%) 1,000 mls @ 50 mls/hr IV .Q20H [facility] Last Admin: 01/01/19 06:36 Dose: 1,000 mls Insulin Human Lispro (Humalog) 0 units SC .AGGRESSIVE SLIDING PRN PRN Reason: Aggressive Correctional Scale Last Admin: 01/01/19 05:41 Dose: 3 unit Insulin Human Lispro (Humalog) 0 units SC .BEDTIME SLIDING SC PRN PRN Reason: Bedtime Correctional Scale Last Admin: 12/31/18 20:25 Dose: 3 unit Levofloxacin (Levaquin) 250 mg PO 0600 [facility] Stop: 01/02/19 06:01 Last Admin: 01/01/19 05:41 Dose: 250 mg Metoprolol Tartrate (Lopressor) 37.5 mg PO BID [facility] Last Admin: 01/01/19 09:01 Dose: Not Given Montelukast Sodium (Singulair) 10 mg PO HS [facility] Last Admin: 12/31/18 20:24 Dose: 10 mg Ondansetron HCl (Zofran) 4 mg IVP Q6H PRN PRN Reason: Nausea/Vomiting Saccharomyces Boulardii (Florastor) 250 mg PO DAILY [facility] Last Admin: 01/01/19 08:13 Dose: 250 mg Sodium Chloride (Flush - Normal Saline) 10 ml IVF Q12HR [facility] Last Admin: 01/01/19 08:13 Dose: Not Given Sodium Chloride (Flush - Normal Saline) 10 ml IVF PRN PRN PRN Reason: Saline Flush Tamsulosin HCl (Flomax) 0.4 mg PO DAILY [facility] Last Admin: 01/01/19 08:13 Dose: 0.4 mg Zolpidem Tartrate (Ambien) 5 mg PO HSPRN PRN PRN Reason: Insomnia
--- NOTE | 2019-01-01 13:03 | PRG ---
DATE OF SERVICE: 01/01/2019 SUBJECTIVE: A 78-year-old gentleman being seen for acute kidney injury. The patient denies nausea, vomiting or chest pain. OBJECTIVE: VITAL SIGNS: Pulse blood pressure 136/60. See above. Awake, alert, in no acute distress. GENERAL APPEARANCE AND MENTAL STATUS: Fair. HEAD/NECK: Normocephalic. Atraumatic. EYES: EOMI. No deformity. EARS: Clear. No ulcers. NOSE: Intact. No lesions. MOUTH: Clear. No discharge. THROAT: Clear. No exudate. LUNGS: Clear. No crackles. CARDIAC: S1, S2. No rub. ABDOMEN: Benign. Bowel sounds positive. GENITALIA/RECTUM: Strong absent. BACK/EXTREMITIES: Edema 0+. NEUROLOGICAL: Alert and motor intact. SKIN: LYMPHATICS: LABORATORY DATA: Hemoglobin 13. Creatinine is 2.03. IMPRESSION AND PLAN: 1. chronic kidney disease stage 3, stable. 2. Hypertension, stable. 3. Anemia, stable. 4. Medication based on GFR, appropriate. No indication for dialysis. We will follow renal function closely. Job ID: [id number]
--- NOTE | 2019-01-01 15:58 | PRG ---
DATE OF SERVICE: 01/01/2019 INTERVAL HISTORY: The patient is doing fine from respiratory standpoint. Breathing comfortably. Denies any current chest pain, fevers, or chills. There has been no change to his condition and no overnight events. His appetite is good. He is tolerating p.o. PHYSICAL EXAMINATION: VITAL SIGNS: Afebrile, pulse 88, blood pressure 144/79, respirations 20, saturation 97% on room air. HEENT: Normocephalic and atraumatic. Sclerae white. Conjunctivae pink. Oral mucosa is moist without lesions. LUNGS: Excellent air entry. Dependent crackles are minimal. No prolonged expiratory phase or wheezing is appreciated. HEART: Normal rate. Irregular. ABDOMEN: Soft, nontender, nondistended. Bowel sounds are positive. MUSCULOSKELETAL: No cyanosis or clubbing. There is 1+ pitting in the bilateral lower extremities. NEUROLOGIC: Grossly nonfocal. LABORATORY DATA: WBC 11.4, hemoglobin 13.0, platelets 162,000. Creatinine 2.03 and roughly stable, but above baseline of 0.8. Liver function studies, and basic metabolic profile are otherwise unremarkable. Total bilirubin 1.8 and gently downtrending. Nitrites are positive, white blood cells are quite elevated. Beta-hydroxybutyrate is negative. E. coli is growing in urine and blood in 2/2. ASSESSMENT: 1. Severe sepsis. 2. Urinary tract infection secondary to Escherichia coli. 3. Bacteremia secondary to Escherichia coli. 4. Acute kidney injury. DISCUSSION AND PLAN: IV fluids will be interrupted. The patient is significantly volume overloaded. We will continue our antibiotics. At this point, the patient is stable from a purely respiratory standpoint. There are no further inpatient requirements for Pulmonary opinion, and I will sign off. If he deteriorates, please give me a phone call. Job ID: [id number]
[2019-01-01] MEDS: Montelukast Sodium 10 mg Tablet PO SCH (19:59)
[2019-01-01] MEDS: Atorvastatin Calcium 40 MG TAB PO SCH (19:59)
[2019-01-02] MEDS: HumaLOG 300 UNITS/3 ML VIAL SC PRN ×3 (05:21→17:57)
[2019-01-02 08:00] LABS: #Eosinphils 0.1 thou/uL (0.0-0.7); #Lymphocytes 0.9 thou/uL (1.20-3.40); #Monocytes 0.6 thou/uL (0.11-0.59); #Neutrophils 9.6 thou/uL (1.40-6.50); %Basophils 0.2 % (0.0-1.0); %Eosinophils 0.7 % (0.0-10.0); %Lymphocytes 7.7 % (21.0-51.0); %Monocytes 5.7 % (0.0-10.0); %Neutrophils 85.8 % (42.0-75.0); Hemoglobin 12.9 g/dL (14.0-18.0); Mean Corpuscular HGB CONC 33.7 g/dL (32.0-36.0); Mean Corpuscular Hemoglobin 31.7 pg (27.0-31.0); Mean Platelet Volume 8.6 fL (7.4-10.4); Platelet Count 172 thou/uL (130-400); RBC Distribution Width 13.6 % (11.5-14.5); Red Blood Cell (RBC) Count 4.08 mill/uL (4.70-6.10); White Blood Cell (WBC) Count 11.2 thou/uL (4.8-10.8)
[2019-01-02] MEDS: Aspirin 81 mg Enteric Coated Tablet PO SCH (09:10)
[2019-01-02] MEDS: Saccharomyces boulardii 250 MG CAP PO SCH (09:11)
[2019-01-02] MEDS: Apixaban 5 MG TAB PO SCH ×2 (09:11→20:45)
[2019-01-02] MEDS: Tamsulosin HCl 0.4 MG CAP PO SCH (09:12)
[2019-01-02] MEDS: Fluticasone Propionate Nasal Spray 16 gm Bottle NASAL SCH (09:14)
[2019-01-02] MEDS: Metoprolol Tartrate 50 MG TAB PO SCH ×2 (09:15→20:45)
[2019-01-02] MEDS: cefTRIAXone\\ROCEPHIN 1 GM in Sodium Chloride 0.9% 100 ML IVPB SCH (09:16)
[2019-01-02] MEDS: Famotidine 20 MG TAB PO SCH (09:23)
--- NOTE | 2019-01-02 10:00 | PDOC.PN ---
- Subjective Encounter Start Date: 01/02/19 Encounter Start Time: 08:20 Patient seen and examined. No new complaints. No overnight events - Objective MAR Reviewed: Yes Vital Signs & Weight: Vital Signs (12 hours) Temp Pulse Resp BP Pulse Ox 01/02/19 08:00 98.6 F 95 16 124/75 98 01/02/19 06:54 100 12 01/01/19 23:42 99 12 96 Weight Weight 234 lb 6.4 oz Most Recent Monitor Data Heart Rate from ECG 84 NIBP 114/91 NIBP BP-Mean 98 Respiration from ECG 25 SpO2 100 I&O: 01/01/19 01/02/19 01/03/19 06:59 06:59 06:59 Intake Total 1000 1820 Balance 1000 1820 Result Diagrams: 01/02/19 07:37 01/01/19 06:16 Additional Labs: Accuchecks 01/02/19 01/01/19 01/01/19 05:01 20:04 16:44 POC Glucose 193 H 227 H 298 H 01/01/19 11:53 POC Glucose 417 H Phys Exam - Physical Examination Constitutional: NAD HEENT: PERRLA, moist MMs, sclera anicteric Neck: no JVD, supple Respiratory: no wheezing, no rales, no rhonchi Cardiovascular: RRR, no significant murmur, no rub Gastrointestinal: soft, non-tender, no distention, positive bowel sounds Musculoskeletal: no edema, pulses present Neurological: non-focal, normal sensation Lymphatic: no nodes Psychiatric: normal affect, A&O x 3 Skin: no rash, normal turgor Dx/Plan (1) Acute metabolic encephalopathy Code(s): G93.41 - METABOLIC ENCEPHALOPATHY Status: Resolved (2) Acute kidney failure Status: Acute (3) Bacteremia due to Escherichia coli Code(s): R78.81 - BACTEREMIA Status: Acute (4) Community acquired bacterial pneumonia Code(s): J15.9 - UNSPECIFIED BACTERIAL PNEUMONIA Status: Acute (5) DKA (diabetic ketoacidoses) Code(s): E13.10 - OTH DIABETES MELLITUS WITH KETOACIDOSIS WITHOUT COMA Status : Acute Qualifiers: Diabetes mellitus type: type 2 (6) Hyperglycemia due to type 2 diabetes mellitus Code(s): E11.65 - TYPE 2 DIABETES MELLITUS WITH HYPERGLYCEMIA Status: Acute (7) Hyponatremia Code(s): E87.1 - HYPO-OSMOLALITY AND HYPONATREMIA Status: Acute (8) Metabolic acidosis Code(s): E87.2 - ACIDOSIS Status: Acute (9) Sepsis with acute organ dysfunction Code(s): A41.9 - SEPSIS, UNSPECIFIED ORGANISM; R65.20 - SEVERE SEPSIS WITHOUT SEPTIC SHOCK Status: Acute (10) Sepsis with hypotension Code(s): A41.9 - SEPSIS, UNSPECIFIED ORGANISM; I95.9 - HYPOTENSION, UNSPECIFIED Status: Acute (11) UTI (urinary tract infection) Status: Acute (12) Atrial fibrillation and flutter Code(s): I48.91 - UNSPECIFIED ATRIAL FIBRILLATION; I48.92 - UNSPECIFIED ATRIAL FLUTTER Status: Chronic Comment: rate controlled and on elliquis (13) BPH (benign prostatic hyperplasia) Code(s): N40.0 - BENIGN PROSTATIC HYPERPLASIA WITHOUT LOWER URINRY TRACT SYMP Status: Chronic (14) COPD (chronic obstructive pulmonary disease) Status: Chronic (15) Diabetes type 2, controlled Code(s): E11.9 - TYPE 2 DIABETES MELLITUS WITHOUT COMPLICATIONS Status: Chronic (16) Dyslipidemia Code(s): E78.5 - HYPERLIPIDEMIA, UNSPECIFIED Status: Chronic (17) Hypertension Code(s): I10 - ESSENTIAL (PRIMARY) HYPERTENSION Status: Chronic - Plan cont current plan of care, continue antibiotics, PT/OT, manager social responsibility * pt continue to improve * he needs placement * continue PT * continue rocephin * medication reviewed as below * symptomatic treatment. Review of Systems - Review of Systems ENT: negative: Ear Pain, Ear Discharge, Nose Pain, Nose Discharge, Nose Congestion, Mouth Pain, Mouth Swelling, Throat Pain, Throat Swelling, Other Respiratory: negative: Cough, Dry, Shortness of Breath, Hemoptysis, SOB with Excertion, Pleuritic Pain, Sputum, Wheezing Cardiovascular: negative: chest pain, palpitations, orthopnea, paroxysmal nocturnal dyspnea, edema, light headedness, other Gastrointestinal: negative: Nausea, Vomiting, Abdominal Pain, Diarrhea, Constipation, Melena, Hematochezia, Other Genitourinary: negative: Dysuria, Frequency, Incontinence, Hematuria, Retention , Other Musculoskeletal: negative: Neck Pain, Shoulder Pain, Arm Pain, Back Pain, Hand Pain, Leg Pain, Foot Pain, Other - Medications/Allergies Allergies/Adverse Reactions: Allergies Allergy/AdvReac Type Severity Reaction Status Date / Time No Known Allergies Allergy Unverified 12/27/18 00:51 Medications: Current Medications Acetaminophen (Tylenol) 650 mg PO Q4H PRN PRN Reason: Headache/Fever/Mild Pain (1-3) Last Admin: 12/28/18 20:51 Dose: 650 mg Albuterol/Ipratropium (Duoneb) 3 ml NEB [id number] [facility] Last Admin: 01/02/19 06:54 Dose: 3 ml Apixaban (Eliquis) 5 mg PO BID [facility] Last Admin: 01/02/19 09:11 Dose: 5 mg Aspirin (Ecotrin) 81 mg PO DAILY [facility] Last Admin: 01/02/19 09:10 Dose: 81 mg Atorvastatin Calcium (Lipitor) 40 mg PO [facility] Last Admin: 01/01/19 19:59 Dose: 40 mg Dextrose/Water (Dextrose 50%) 25 gm SLOW IVP PRN PRN PRN Reason: Hypoglycemia Famotidine (Pepcid) 20 mg PO DAILY [facility] Last Admin: 01/02/19 09:23 Dose: Not Given Fluticasone Propionate (Flonase Nasal [place]) 0 gm NASAL DAILY [facility] Last Admin: 01/02/19 09:14 Dose: 1 spray Glucagon (Glucagon) 1 mg IM PRN PRN PRN Reason: Hypoglycemia Guaifenesin/Dextromethorphan (Robitussin Dm) 15 ml PO Q4H PRN PRN Reason: Cough Ceftriaxone Sodium 1 gm/ (Sodium Chloride) 100 mls @ 200 mls/hr IVPB Q24HR [facility] Last Admin: 01/02/19 09:16 Dose: 100 mls Dextrose/Water (D5w) 1,000 mls @ 0 mls/hr IV .Q0M PRN PRN Reason: Hypoglycemia Insulin Glargine 20 units/ (Miscellaneous Medication) 0.2 mls @ 0 mls/hr SC HS [facility] Last Admin: 01/01/19 20:00 Dose: 0.2 mls Insulin Glargine 20 units/ (Miscellaneous Medication) 0.2 mls @ 0 mls/hr SC QAM [facility] Last Admin: 01/01/19 08:13 Dose: 0.2 mls Insulin Human Lispro (Humalog) 0 units SC .AGGRESSIVE SLIDING PRN PRN Reason: Aggressive Correctional Scale Last Admin: 01/02/19 05:21 Dose: 3 unit Insulin Human Lispro (Humalog) 0 units SC .BEDTIME SLIDING SC PRN PRN Reason: Bedtime Correctional Scale Last Admin: 01/01/19 20:04 Dose: 2 unit Metoprolol Tartrate (Lopressor) 50 mg PO BID [facility] Last Admin: 01/02/19 09:15 Dose: 50 mg Montelukast Sodium (Singulair) 10 mg PO HS [facility] Last Admin: 01/01/19 19:59 Dose: 10 mg Ondansetron HCl (Zofran) 4 mg IVP Q6H PRN PRN Reason: Nausea/Vomiting Saccharomyces Boulardii (Florastor) 250 mg PO DAILY [facility] Last Admin: 01/02/19 09:11 Dose: 250 mg Sodium Chloride (Flush - Normal Saline) 10 ml IVF Q12HR [facility] Last Admin: 01/02/19 09:18 Dose: 10 ml Sodium Chloride (Flush - Normal Saline) 10 ml IVF PRN PRN PRN Reason: Saline Flush Tamsulosin HCl (Flomax) 0.4 mg PO DAILY [facility] Last Admin: 01/02/19 09:12 Dose: 0.4 mg Zolpidem Tartrate (Ambien) 5 mg PO HSPRN PRN PRN Reason: Insomnia
[2019-01-02] MEDS: Insulin Glargine 20 UNITS in Pre-Filled Syringe 1 EACH SC SCH ×2 (10:41→20:45)
--- NOTE | 2019-01-02 12:01 | DIS ---
DATE OF ADMISSION: 12/27/2018 DATE OF DISCHARGE: 01/02/2019 PRIMARY CARE PHYSICIAN: . DISCHARGE DISPOSITION: Residential Unit. PRIMARY DISCHARGE DIAGNOSES: Acute kidney failure; sepsis with acute organ dysfunction; bacteremia due to E coli; community-acquired bacterial pneumonia; diabetic ketoacidosis; hyponatremia; metabolic acidosis; urinary tract infection; bacteremia with E coli; hypotension with sepsis; acute metabolic encephalopathy. SECONDARY DISCHARGE DIAGNOSES: Hypertension; dyslipidemia; diabetes type 2; chronic obstructive pulmonary disease; benign enlargement of prostate; chronic atrial fibrillation. PRIMARY PROCEDURE/OPERATION: None. RADIOLOGICAL INVESTIGATION: Chest x-ray, echocardiography, and renal ultrasound. SIGNIFICANT LABORATORY DATA: WBC 11.2, hemoglobin 12.9, and platelet 172. Creatinine 2.03. DISCHARGE MEDICATIONS: 1. Ventolin nebulization q.4 hourly p.r.n. 2. Ipratropium nebulization q.4 hourly. 3. Flonase nasal spray daily. 4. Singulair 10 mg daily. 5. Flomax 0.4 mg daily. 6. Eliquis 2.5 mg b.i.d. 7. Aspirin 81 mg daily. 8. Lipitor 40 mg p.o. nightly. 9. Pepcid 20 mg p.o. daily. 10. Humalog insulin as per sliding scale. 11. Lantus 20 units subcu at bedtime and morning. 12. Levaquin 250 mg p.o. daily for 7 more days. 13. Lopressor 50 mg b.i.d. 14. Florastor 250 mg p.o. daily for seven days. CONTRAINDICATION: None. CODE STATUS: Full code. 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 Nephrology Group, Dr. Sandra was following while in hospital. 2. Pulmonary Group, Dr. Gupta was following while in hospital. 3. Cardiology Group, Dr. Meyer was following while in the hospital. TEST RESULTS PENDING ON DISCHARGE: None. ALLERGIES: NO KNOWN DRUG ALLERGY. DISCHARGE PLAN: Posthospital, the patient is discharged to jail unit. Subsequently, the patient will follow up with primary care physician. HOSPITAL COURSE: A 78-year-old male with above-mentioned medical problem, who was admitted by Dr. Paiz. Please see his H and P for further details. I could not see any H and P dictated by him, so we need to ask him to dictate H and P because he admitted this patient. The patient was mainly admitted for altered mental status and hypotension. He was found with acute kidney failure. He was having sepsis. He was very sick, required IMCU admission. He was treated with aggressive IV fluid. He also developed DKA while in hospital because of sepsis. His blood culture came back positive for E coli and his urine culture is also positive for E coli. His chest x-ray showed some infiltration. We gave him Rocephin and levofloxacin while in the hospital. We treated him with DKA protocol treatment. His DKA resolved. At that point, we changed to insulin as per above mentioned dose. He also had atrial fibrillation/flutter and that is why Cardiology was following and they started metoprolol. They recommended only rate control. We also started anticoagulation with Eliquis. Currently, his rate is under control. His renal function has continued to improve. He will follow up with Cardiology Group as well as Nephrology Group after discharge. We have made discharge medication reconciliation as above. Once we have jail home placement available, then the patient is medically stable for discharge. The patient was seen and examined at bedside today. Please see my progress note from today for further details. Job ID: [id number]
--- NOTE | 2019-01-02 13:15 | PRG ---
DATE OF SERVICE: 01/02/2019 SUBJECTIVE: A 78-year-old gentleman being seen for acute kidney injury. The patient denied any nausea, vomiting, or chest pain. OBJECTIVE: CONSTITUTIONAL: On examination, the patient is awake and alert. VITAL SIGNS: Afebrile, pulse 95, breathing is 16, and blood pressure 124/75. GENERAL APPEARANCE AND MENTAL STATUS: Fair. HEAD/NECK: Normocephalic. Atraumatic. EYES: EOMI. No deformity. EARS: Clear. No ulcers. NOSE: Intact. No lesions. MOUTH: Clear. No discharge. THROAT: Clear. No exudate. LUNGS: Clear. No crackles. CARDIAC: S1, S2. No rub. ABDOMEN: Benign. Bowel sounds positive. GENITALIA/RECTUM: Strong absent. BACK/EXTREMITIES: Edema 0+. NEUROLOGICAL: Alert and motor intact. LABORATORY DATA: Labs reviewed. ASSESSMENT AND PLAN: 1. Chronic kidney disease stage 3, stable. 2. Hypertension, stable. 3. Anemia, stable. We will order labs today. Job ID: [id number]
[2019-01-02] MEDS: Montelukast Sodium 10 mg Tablet PO SCH (20:45)
[2019-01-02] MEDS: Acetaminophen 325 MG TAB PO PRN (20:45)
[2019-01-02] MEDS: Atorvastatin Calcium 40 MG TAB PO SCH (20:45)
[2019-01-03 05:17] LABS: Anion Gap 11 mmol/L (10-20); BUN (Urea Nitrogen) 23 mg/dL (8.4-25.7); Calc. Creatinine Clearance 67 mL/min (70-130); Calcium 8.1 mg/dL (7.8-10.44); Carbon Dioxide 24 mmol/L (23-31); Chloride 106 mmol/L (98-107); Estimated GFR-MDRD 50; Glucose 142 mg/dL (83-110); Potassium 3.6 mmol/L (3.5-5.1); Sodium 137 mmol/L (136-145)
[2019-01-03 07:46] VITALS: BP 128/79
[2019-01-03] MEDS: Apixaban 5 MG TAB PO SCH (08:48)
[2019-01-03] MEDS: Saccharomyces boulardii 250 MG CAP PO SCH (08:50)
[2019-01-03] MEDS: cefTRIAXone\\ROCEPHIN 1 GM in Sodium Chloride 0.9% 100 ML IVPB SCH (08:50)
[2019-01-03] MEDS: Metoprolol Tartrate 50 MG TAB PO SCH (08:51)
[2019-01-03] MEDS: Famotidine 20 MG TAB PO SCH (08:51)
[2019-01-03] MEDS: Tamsulosin HCl 0.4 MG CAP PO SCH (08:51)
[2019-01-03] MEDS: Fluticasone Propionate Nasal Spray 16 gm Bottle NASAL SCH (08:52)
[2019-01-03] MEDS: Aspirin 81 mg Enteric Coated Tablet PO SCH (08:52)
[2019-01-03] MEDS: Insulin Glargine 20 UNITS in Pre-Filled Syringe 1 EACH SC SCH (08:53)
--- NOTE | 2019-01-03 10:44 | PDOC.PN ---
- Subjective Encounter Start Date: 01/03/19 Encounter Start Time: 07:40 Patient seen and examined. No new complaints. No overnight events - Objective MAR Reviewed: Yes Vital Signs & Weight: Vital Signs (12 hours) Temp Pulse Resp BP Pulse Ox 01/03/19 07:45 98.4 F 98 16 128/79 98 01/03/19 06:02 96 16 98 01/03/19 00:45 72 16 98 Weight Weight 234 lb 6.4 oz Most Recent Monitor Data Heart Rate from ECG 84 NIBP 114/91 NIBP BP-Mean 98 Respiration from ECG 25 SpO2 100 I&O: 01/02/19 01/03/19 01/04/19 06:59 06:59 06:59 Intake Total 1820 850 Balance 1820 850 Result Diagrams: 01/02/19 07:37 01/03/19 04:07 Additional Labs: Accuchecks 01/03/19 01/02/19 01/02/19 04:14 20:31 16:24 POC Glucose 132 H 170 H 230 H 01/02/19 11:53 POC Glucose 294 H Phys Exam - Physical Examination Constitutional: NAD HEENT: PERRLA, moist MMs, sclera anicteric Neck: no JVD, supple Respiratory: no wheezing, no rales, no rhonchi Cardiovascular: RRR, no significant murmur, no rub Gastrointestinal: soft, non-tender, no distention, positive bowel sounds Musculoskeletal: pulses present, edema present Neurological: non-focal, normal sensation Lymphatic: no nodes Psychiatric: normal affect, A&O x 3 Skin: no rash, normal turgor Dx/Plan (1) Acute metabolic encephalopathy Code(s): G93.41 - METABOLIC ENCEPHALOPATHY Status: Resolved (2) Acute kidney failure Status: Acute (3) Bacteremia due to Escherichia coli Code(s): R78.81 - BACTEREMIA Status: Acute (4) Community acquired bacterial pneumonia Code(s): J15.9 - UNSPECIFIED BACTERIAL PNEUMONIA Status: Acute (5) DKA (diabetic ketoacidoses) Code(s): E13.10 - OTH DIABETES MELLITUS WITH KETOACIDOSIS WITHOUT COMA Status : Acute Qualifiers: Diabetes mellitus type: type 2 (6) Hyperglycemia due to type 2 diabetes mellitus Code(s): E11.65 - TYPE 2 DIABETES MELLITUS WITH HYPERGLYCEMIA Status: Acute (7) Hyponatremia Code(s): E87.1 - HYPO-OSMOLALITY AND HYPONATREMIA Status: Acute (8) Metabolic acidosis Code(s): E87.2 - ACIDOSIS Status: Acute (9) Sepsis with acute organ dysfunction Code(s): A41.9 - SEPSIS, UNSPECIFIED ORGANISM; R65.20 - SEVERE SEPSIS WITHOUT SEPTIC SHOCK Status: Acute (10) Sepsis with hypotension Code(s): A41.9 - SEPSIS, UNSPECIFIED ORGANISM; I95.9 - HYPOTENSION, UNSPECIFIED Status: Acute (11) UTI (urinary tract infection) Status: Acute (12) Atrial fibrillation and flutter Code(s): I48.91 - UNSPECIFIED ATRIAL FIBRILLATION; I48.92 - UNSPECIFIED ATRIAL FLUTTER Status: Chronic Comment: rate controlled and on elliquis (13) BPH (benign prostatic hyperplasia) Code(s): N40.0 - BENIGN PROSTATIC HYPERPLASIA WITHOUT LOWER URINRY TRACT SYMP Status: Chronic (14) COPD (chronic obstructive pulmonary disease) Status: Chronic (15) Diabetes type 2, controlled Code(s): E11.9 - TYPE 2 DIABETES MELLITUS WITHOUT COMPLICATIONS Status: Chronic (16) Dyslipidemia Code(s): E78.5 - HYPERLIPIDEMIA, UNSPECIFIED Status: Chronic (17) Hypertension Code(s): I10 - ESSENTIAL (PRIMARY) HYPERTENSION Status: Chronic - Plan cont current plan of care, continue antibiotics, PT/OT, 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 Review of Systems - Review of Systems ENT: negative: Ear Pain, Ear Discharge, Nose Pain, Nose Discharge, Nose Congestion, Mouth Pain, Mouth Swelling, Throat Pain, Throat Swelling, Other Respiratory: negative: Cough, Dry, Shortness of Breath, Hemoptysis, SOB with Excertion, Pleuritic Pain, Sputum, Wheezing Cardiovascular: negative: chest pain, palpitations, orthopnea, paroxysmal nocturnal dyspnea, edema, light headedness, other Gastrointestinal: negative: Nausea, Vomiting, Abdominal Pain, Diarrhea, Constipation, Melena, Hematochezia, Other Genitourinary: negative: Dysuria, Frequency, Incontinence, Hematuria, Retention , Other Musculoskeletal: negative: Neck Pain, Shoulder Pain, Arm Pain, Back Pain, Hand Pain, Leg Pain, Foot Pain, Other - Medications/Allergies Allergies/Adverse Reactions: Allergies Allergy/AdvReac Type Severity Reaction Status Date / Time No Known Allergies Allergy Unverified 12/27/18 00:51 Medications: Current Medications Acetaminophen (Tylenol) 650 mg PO Q4H PRN PRN Reason: Headache/Fever/Mild Pain (1-3) Last Admin: 01/02/19 20:45 Dose: 650 mg Albuterol/Ipratropium (Duoneb) 3 ml NEB [id number] [facility] Last Admin: 01/03/19 06:02 Dose: 3 ml Apixaban (Eliquis) 5 mg PO BID [facility] Last Admin: 01/03/19 08:48 Dose: 5 mg Aspirin (Ecotrin) 81 mg PO DAILY [facility] Last Admin: 01/03/19 08:52 Dose: 81 mg Atorvastatin Calcium (Lipitor) 40 mg PO HS [facility] Last Admin: 01/02/19 20:45 Dose: 40 mg Dextrose/Water (Dextrose 50%) 25 gm SLOW IVP PRN PRN PRN Reason: Hypoglycemia Famotidine (Pepcid) 20 mg PO DAILY [facility] Last Admin: 01/03/19 08:51 Dose: 20 mg Fluticasone Propionate (Flonase Nasal [place]) 0 gm NASAL DAILY [facility] Last Admin: 01/03/19 08:52 Dose: 1 spray Glucagon (Glucagon) 1 mg IM PRN PRN PRN Reason: Hypoglycemia Guaifenesin/Dextromethorphan (Robitussin Dm) 15 ml PO Q4H PRN PRN Reason: Cough Ceftriaxone Sodium 1 gm/ (Sodium Chloride) 100 mls @ 200 mls/hr IVPB Q24HR [facility] Last Admin: 01/03/19 08:50 Dose: 100 mls Dextrose/Water (D5w) 1,000 mls @ 0 mls/hr IV .Q0M PRN PRN Reason: Hypoglycemia Insulin Glargine 20 units/ (Miscellaneous Medication) 0.2 mls @ 0 mls/hr SC HS [facility] Last Admin: 01/02/19 20:45 Dose: 0.2 mls Insulin Glargine 20 units/ (Miscellaneous Medication) 0.2 mls @ 0 mls/hr SC QAM [facility] Last Admin: 01/03/19 08:53 Dose: 0.2 mls Insulin Human Lispro (Humalog) 0 units SC .AGGRESSIVE SLIDING PRN PRN Reason: Aggressive Correctional Scale Last Admin: 01/02/19 17:57 Dose: 6 unit Insulin Human Lispro (Humalog) 0 units SC .BEDTIME SLIDING SC PRN PRN Reason: Bedtime Correctional Scale Last Admin: 01/01/19 20:04 Dose: 2 unit Metoprolol Tartrate (Lopressor) 50 mg PO BID [facility] Last Admin: 01/03/19 08:51 Dose: 50 mg Montelukast Sodium (Singulair) 10 mg PO HS [facility] Last Admin: 01/02/19 20:45 Dose: 10 mg Ondansetron HCl (Zofran) 4 mg IVP Q6H PRN PRN Reason: Nausea/Vomiting Saccharomyces Boulardii (Florastor) 250 mg PO DAILY [facility] Last Admin: 01/03/19 08:50 Dose: 250 mg Sodium Chloride (Flush - Normal Saline) 10 ml IVF Q12HR [facility] Last Admin: 01/03/19 08:54 Dose: 10 ml Sodium Chloride (Flush - Normal Saline) 10 ml IVF PRN PRN PRN Reason: Saline Flush Tamsulosin HCl (Flomax) 0.4 mg PO DAILY [facility] Last Admin: 01/03/19 08:51 Dose: 0.4 mg Zolpidem Tartrate (Ambien) 5 mg PO HSPRN PRN PRN Reason: Insomnia
[2019-01-03 11:53] VITALS: TEMP 98.9
--- NOTE | 2019-01-03 12:16 | PRG ---
DATE OF SERVICE: 01/03/2019 SUBJECTIVE: A 78-year-old gentleman being seen for acute kidney injury. The patient denied any nausea, vomiting, or chest pain. OBJECTIVE: CONSTITUTIONAL: On examination, the patient is awake and alert. VITAL SIGNS: Afebrile, pulse 98, breathing 16, and blood pressure 120/75. GENERAL APPEARANCE AND MENTAL STATUS: Fair. HEAD/NECK: Normocephalic. Atraumatic. EYES: EOMI. No deformity. EARS: Clear. No ulcers. NOSE: Intact. No lesions. MOUTH: Clear. No discharge. THROAT: Clear. No exudate. LUNGS: Clear. No crackles. CARDIAC: S1, S2. No rub. ABDOMEN: Benign. Bowel sounds positive. GENITALIA/RECTUM: Strong absent. BACK/EXTREMITIES: Edema 0+. NEUROLOGICAL: Alert and motor intact. SKIN: LYMPHATICS: LABORATORY DATA: Hemoglobin 12.9. Creatinine 1.3. ASSESSMENT AND PLAN: Acute kidney injury, improved. Chronic kidney disease stage 3, stable. Hypertension stable. Anemia stable. I will sign off on the patient. Please reconsult if needed. Job ID: [id number]
--- NOTE | 2019-01-03 13:36 | DIS ---
DATE OF ADMISSION: 12/27/2018 DATE OF DISCHARGE: ADDENDUM: Please see my discharge summary dictated yesterday, January 02, 2019. The patient was initially planned for discharging to long-term home, but the patient is doing very well and he is walking with the physical therapy program very well and he wants to go home rather than long-term home. He changed his mind and he is comfortable going home. Family member also okay with this decision. As his renal function continued to improve, we changed his Eliquis to 5 mg p.o. b.i.d., and we noted that the patient was having lower extremity edema and that is why we started Lasix 40 mg p.o. daily upon discharge. Rest of medication and discharge summary as per my yesterday's discharge summary. The patient is seen and examined at bedside today. Please see my progress note from today for further detail. Job ID: [id number]
== END 2019-01-03 13:49 | disposition home or self-care (01) | DRG 871 ==
LOC: ERS 18:48 → ERHOLD 21:21 → IMCU/EMU 21:38 → OBSVTOIN 12-27 01:09 → IMCU/EMU 12-27 18:00 → T4-A 12-31 11:43
PROVIDERS: ADMIT Internal Medicine; ATTEND Internal Medicine
DX: A41.51 Sepsis due to Escherichia coli [E. coli] (principal); G93.41 Metabolic encephalopathy; J15.9 Unspecified bacterial pneumonia; E11.10 Type 2 diabetes mellitus with ketoacidosis without coma; N17.9 Acute kidney failure, unspecified; E87.1 Hypo-osmolality and hyponatremia; N39.0 Urinary tract infection, site not specified; I48.92 Unspecified atrial flutter; I13.0 Hypertensive heart and chronic kidney disease with heart failure and stage 1 through stage 4 chronic kidney disease, or unspecified chronic kidney disease; I50.30 Unspecified diastolic (congestive) heart failure; R65.20 Severe sepsis without septic shock; N40.0 Benign prostatic hyperplasia without lower urinary tract symptoms; J44.9 Chronic obstructive pulmonary disease, unspecified; D63.1 Anemia in chronic kidney disease; N18.3 Chronic kidney disease, stage 3 (moderate); E11.22 Type 2 diabetes mellitus with diabetic chronic kidney disease; I48.2 Chronic atrial fibrillation; E78.00 Pure hypercholesterolemia, unspecified; Z79.82 Long term (current) use of aspirin; Z87.891 Personal history of nicotine dependence; Z79.01 Long term (current) use of anticoagulants; Z79.51 Long term (current) use of inhaled steroids; Z79.4 Long term (current) use of insulin
CPT/HCPCS: 36415; 36416; 71045; 76770; 80048; 80053; 81003; 81015; 82010; 82533; 82570; 83036; 83605; 83735; 83880; 83930; 83935; 84100; 84156; 84300; 84443; 84484; 85025; 85610; 85730; 87040; 87077; 87086; 87149; 87186; 93306; 94640; 96361; 96365; J0696; J1630; J1644; J1650; J1815; J1825; J1956; J2543; J3370; J3486; J7050; J7070; J7620

== ENCOUNTER 2019-04-30 02:57 | Inpatient (IN) | payer MEDICARE ==
[2019-04-30] MEDS ORDERED: cefTRIAXone\\ROCEPHIN 1 GM VIAL ONE (03:17)
[2019-04-30 05:44] VITALS: BMI 28.3
[2019-04-30] MEDS ORDERED: Ondansetron ODT 4 MG TAB PO PRN (05:47)
[2019-04-30] MEDS ORDERED: Acetaminophen 325 MG TAB PO PRN (05:47)
[2019-04-30] MEDS ORDERED: Ondansetron PF 4 MG/2 ML Vial IVP PRN (05:47)
--- NOTE | 2019-04-30 06:45 | HP ---
PRIMARY CARE DOCTOR: Dr. María Mathis. CODE STATUS: Full code. TIME OF EVALUATION: 6 a.m. CHIEF COMPLAINT: Blood in the urine. HISTORY OF PRESENT ILLNESS: This is a 78-year-old male patient with past medical history of kidney stones, also colon cancer status post surgical resection, CHF, bronchitis, GERD, diabetes, hyperlipidemia, and hypertension, came to the hospital after seeing blood in the urine, also burning on urination with no clear triggers, no alleviating factors. Symptoms have been present since Tuesday. He has associated abdominal pain that is in the right lower quadrant. Symptoms are moderate with intensity of pain around 5/10. REVIEW OF SYSTEMS: CONSTITUTIONAL: The patient has fever, chills, and generalized weakness. RESPIRATORY: No cough, sputum production, or shortness of breath. CARDIOVASCULAR: No chest pain or palpitation. GASTROINTESTINAL: No nausea, vomiting, or diarrhea. The patient has abdominal pain that is in right lower quadrant as described in HPI. TOP TRIMMER: No dizziness, headache, or feeling lightheaded. GENITOURINARY: urination. EXTREMITIES: No leg swelling. All other systems were reviewed and negative except for the findings mentioned above. PAST MEDICAL HISTORY: As mentioned in the HPI. SURGICAL HISTORY: Colon surgery. FAMILY HISTORY: Reviewed and non contributory for current presentation. PSYCHIATRIC HISTORY: Includes depression. SOCIAL HISTORY: Lives at home alone with family next door. The patient drinks socially rarely. No drugs. No smoking history. KNOWN ALLERGIES: No known drug allergies. REPORTED MEDICATIONS: No reported medications. PHYSICAL EXAMINATION: VITAL SIGNS: Blood pressure 166/89 with heart rate 110, respiratory rate was 16 , temperature 98.2, pain 4/10, oxygen saturation was 96% on room air. GENERAL APPEARANCE: The patient is alert, oriented, not in acute distress. HEENT: Eyes; normal conjunctivae. Moist oral mucosa. Anicteric. No JVD. RESPIRATORY: Bilateral air entry. No rales. No wheezing. Symmetric expansion. CARDIOVASCULAR: The patient is tachycardic. Regular rhythm. No murmurs. No gallop. No edema. ABDOMEN: Soft. Normal bowel sounds. The patient has right lower quadrant pain. MUSCULOSKELETAL: Baseline range of motion and strength. SKIN: Warm and intact. No pallor. No rash. No redness. Capillary refill seems to be intact. NEURO: No evidence of any new focal weakness. Cranial nerves seems to be intact. PSYCH: The patient is in good mood. No anxiety. Optimal judgment. DIAGNOSTIC DATA: Abdomen and pelvis CT and testicular ultrasound still pending. As per discussion with ER, there is no hydronephrosis and the patient has what seems to be left-sided testicular epididymitis. LABORATORY DATA: The labs were reviewed. The patient has a white count of 12.9 , hemoglobin 14.4, MCV 89.2, bands 2%, platelet count 200. Chemistry; sodium 137, potassium 3.8, chloride 100, carbon dioxide 25, anion gap 16, BUN 14; creatinine 1.37, in previous admission was 1.36, this is chronic; glucose 156, lactic acid 1.9, calcium 10.2. LFTs were negative. Urine was done and showed large leukocyte esterase, white count 21 to 50, and red blood cells 11 to 20. ASSESSMENT AND PLAN: The patient will be placed in the hospital with the following medical problems. 1. Urinary tract infection. The patient has been started on antibiotics. The patient seems to have left-sided epididymitis seen on the ultrasound, although official report is not back yet. The patient has hematuria; for that reason, Urology has been consulted, we will follow recommendations. There is no evidence of hydronephrosis by our review and discussion with emergency room doctor of the CT , however, official report needs to be followed. 2. Sepsis; the patient has tachycardia, fever and urinary tract infection. The patient has been started on antibiotics, also hydration. We will monitor. We will treat accordingly. 3. Chronic kidney disease stage 3 with GFR of 50, between 30 and 60. We will monitor kidney function. We will treat accordingly. We will adjust treatment as needed. 4. Uncontrolled diabetes with blood sugar 156. We will reconcile home medications, place the patient on sliding scale for optimal control. This is likely triggered by sepsis. 5. History of congestive heart failure, this is chronic, seems to be stable. We will monitor and reconcile home medications. 6. History of gastroesophageal reflux disease, reconcile home medications, chronic, seems to be stable. 7. History of asthma, reconcile home medications. It is chronic, seems to be stable. 8. Hyperlipidemia. Low-cholesterol diet is advised, reconcile home medications. 9. Uncontrolled hypertension with systolic blood pressure 166, reconcile home medications. We will not treat aggressively since patient is septic and at risk for hypotension. 10. Deep venous thrombosis prophylaxis. Job ID: [id number] [facility]
--- NOTE | 2019-04-30 07:20 | CT ---
CT OF THE ABDOMEN AND PELVIS WITHOUT IV COTNRAST: INDICATION: History of right-sided abdominal pain and renal stones. COMPARISON: CT of the abdomen and pelvis with contrast dated 08/10/2012. FINDINGS: Lung bases are clear. There is a nodular contour to the liver. Unopacified gallbladder, pancreas, and adrenal glands appear within normal limits. The spleen measur es 12.4 cm. There is a horseshoe kidney. No hydronephrosis is evident. No renal or ureteral calculus is noted. There are moderate calcifications involving the abdominopelvic vasculature. There is postsurgical change of a right hemicolectomy. The small bowel is normal caliber. There is mild fluid seen within the colon. Bladder is partially decompressed. The prostate is enlarged measuring 7 cm. There is diffuse osteopenia. There is scattered degenerative change. IMPRESSION: 1. No renal or ureteral calculus. 2. Stable horseshoe kidney. 3. Fluid density seen within colon can be seen with diarrheal states or a mild colitis. Recommend c orrelation. 4. Postsurgical change of a right hemicolectomy. 5. Prostate enlargement. POS: BH
--- NOTE | 2019-04-30 07:24 | ULT ---
SCROTAL ULTRASOUND: INDICATION: History of right vesicular pain, urosepsis and . TECHNIQUE: Horvath scale, color Doppler, and spectral Doppler images were obtained of the scrotum. FINDINGS: The right testicle measures 4.8 x 2.9 x 3.6 cm. The left testicle measures 2.8 x 1.5 x 2.2 cm. Ther e is normal flow to both testicles. There are small bilateral hydroceles. No intratesticular mass o r torsion is evident. There is slight thickening of the scrotal botello which is nonspecific. There i s heterogeneity involving the epididymi bilaterally without evidence of increased flow. IMPRESSION: 1. Scrotal wall thickening bilaterally. Recommend correlation for scrotal cellulitis. 2. No intratesticular mass or torsion. 3. Slight asymmetry and size of the testicles but without evidence of intratesticular mass. 4. Small bilateral hydroceles. POS: BH
[2019-04-30] MEDS ORDERED: Dextrose 50% Abboject 50 ML SYRINGE SLOW IVP PRN (10:57)
[2019-04-30] MEDS ORDERED: Dextrose 5% in Water 1,000 ML IV PRN (10:57)
[2019-04-30] MEDS ORDERED: Insulin Glargine 10 UNITS in Pre-Filled Syringe 1 EACH SC SCH ×2 (11:45→21:00)
[2019-04-30] MEDS: Piperacillin/Tazobactam 4.5 GM in Sodium Chloride 0.9% 100 ML IVPB SCH ×2 (12:17→17:27)
--- NOTE | 2019-04-30 14:53 | PDOC.PN ---
- Subjective Encounter Start Date: 04/30/19 Encounter Start Time: 11:00 Subjective: pt up in bed feels well, he has stopped taking his -: eliquis since tuesday due to hematuria - Objective Resuscitation Status - Order Detail: 04/30/19 05:47 Resuscitation Status Routine Resuscitation Status: FULL: Full Resuscitation Vital Signs & Weight: Vital Signs (12 hours) Temp Pulse Resp BP Pulse Ox 04/30/19 08:00 98 04/30/19 07:56 98.4 F 89 18 157/82 H 98 04/30/19 05:47 97 04/30/19 05:44 98.5 F 96 18 155/82 H 97 Weight Weight 202 lb 11.2 oz Additional Labs: Accuchecks 04/30/19 11:33 POC Glucose 319 H Phys Exam - Physical Examination Neck: no nodes, no JVD, supple, full ROM Respiratory: no wheezing, no rales, no rhonchi, wheezing present, clear to auscultation bilateral Cardiovascular: RRR, no significant murmur, no rub, gallop, irregular Gastrointestinal: soft, non-tender, no distention, positive bowel sounds Dx/Plan (1) Cellulitis Code(s): L03.90 - CELLULITIS, UNSPECIFIED Status: Acute (2) BPH (benign prostatic hyperplasia) Code(s): N40.0 - BENIGN PROSTATIC HYPERPLASIA WITHOUT LOWER URINRY TRACT SYMP Status: Chronic (3) Diabetes type 2, controlled Code(s): E11.9 - TYPE 2 DIABETES MELLITUS WITHOUT COMPLICATIONS Status: Chronic Qualifiers: Diabetes mellitus complication status: with other specified complication (4) Hematuria Code(s): R31.9 - HEMATURIA, UNSPECIFIED Status: Acute - Plan will start pt on zosyn since he is a diabetic. -: will check accucheck ac/hs -: will hold eliquis for now. urology has been consulted * . Review of Systems - Review of Systems Respiratory: negative: Cough, Dry, Shortness of Breath, Hemoptysis, SOB with Excertion, Pleuritic Pain, Sputum, Wheezing Cardiovascular: negative: chest pain, palpitations, orthopnea, paroxysmal nocturnal dyspnea, edema, light headedness, other Gastrointestinal: negative: Nausea, Vomiting, Abdominal Pain, Diarrhea, Constipation, Melena, Hematochezia, Other - Medications/Allergies Allergies/Adverse Reactions: Allergies Allergy/AdvReac Type Severity Reaction Status Date / Time No Known Allergies Allergy Unverified 12/27/18 00:51 Medications: Current Medications Acetaminophen (Tylenol) 650 mg PO Q4H PRN PRN Reason: Headache/Fever/Mild Pain (1-3) Aspirin (Ecotrin) 81 mg PO DAILY ON LICENSE OF [facility] Atorvastatin Calcium (Lipitor) 40 mg PO HS ON LICENSE OF [facility] Dextrose/Water (Dextrose 50%) 25 gm SLOW IVP PRN PRN PRN Reason: Hypoglycemia Famotidine (Pepcid) 20 mg PO DAILY ON LICENSE OF [facility] Glucagon (Glucagon) 1 mg IM PRN PRN PRN Reason: Hypoglycemia Dextrose/Water (D5w) 1,000 mls @ 0 mls/hr IV .Q0M PRN PRN Reason: Hypoglycemia Piperacillin Sod/Tazobactam (Sod 4.5 gm/ Sodium Chloride) 100 mls @ 200 mls/hr IVPB Q6HR ON LICENSE OF [facility] Last Admin: 04/30/19 12:17 Dose: 100 mls Insulin Glargine 10 units/ (Miscellaneous Medication) 0.1 mls @ 0 mls/hr SC QAM ON LICENSE OF [facility] Insulin Glargine 10 units/ (Miscellaneous Medication) 0.1 mls @ 0 mls/hr SC HS ON LICENSE OF [facility] Insulin Human Lispro (Humalog) 0 units SC .MILD SLIDING SCALE PRN PRN Reason: Mild Correctional Scale Metoprolol Tartrate (Lopressor) 50 mg PO BID ON LICENSE OF [facility] Montelukast Sodium (Singulair) 10 mg PO HS ON LICENSE OF [facility] Ondansetron HCl (Zofran Odt) 4 mg PO Q6H PRN PRN Reason: Nausea/Vomiting Ondansetron HCl (Zofran) 4 mg IVP Q6H PRN PRN Reason: Nausea/Vomiting Saccharomyces Boulardii (Florastor) 250 mg PO DAILY ON LICENSE OF [facility] Tamsulosin HCl (Flomax) 0.4 mg PO DAILY ON LICENSE OF [facility]
[2019-04-30] MEDS: HumaLOG 300 UNITS/3 ML VIAL SC PRN (17:34)
[2019-04-30] MEDS: Montelukast Sodium 10 mg Tablet PO SCH (20:02)
[2019-04-30] MEDS: Metoprolol Tartrate 50 MG TAB PO SCH (20:02)
[2019-04-30] MEDS: Atorvastatin Calcium 40 MG TAB PO SCH (20:02)
--- NOTE | 2019-05-01 00:46 | CON ---
DATE OF CONSULTATION: 04/30/2019 REASON FOR CONSULTATION: Epididymitis and urinary tract infection. HISTORY OF PRESENT ILLNESS: Mr. Alvarez is a 78-year-old white male, who presented to the hospital with complaints regarding seeing blood in the urine, burning with urination, and testicular pain. He states the pain was approximately a 5/10 and primarily on the right side along with the associated bladder symptoms. He did not report any difficulty with urination and states that he has never had difficulty with urination. However, he has had a previous urinary tract infection about 3 months ago. His current symptoms started approximately 2 days ago and has progressively been getting worse, which ultimately brought him into the hospital. Upon arrival to the hospital, he did get lab work done as well as imaging with a CT of the abdomen and pelvis which did not demonstrate anything concerning within the kidneys such as calculi or hydronephrosis although he does have a horseshoe kidney. A scrotal ultrasound was done, which did demonstrate some scrotal wall thickening and concerns for mild irregularity of the epididymis and mild swelling of the testicle. There was no evidence of torsion. On my discussion with the patient, he states he is feeling a little bit better. He thought he had a fever earlier, but after starting antibiotics, he states that has gone away. He is having some testicular pain and discomfort. He denies any nausea or vomiting, shortness of breath, or chest pain. He again notes that he is having some dysuria still, but he does not have any problems passing his urine. He has been started on tamsulosin by the hospitalist team. The patient does not report taking tamsulosin at home, although it is listed on his home medications. ALLERGIES: NONE. HOME MEDICATIONS: 1. Insulin. 2. Eliquis. 3. Pepcid. 4. Atorvastatin. 5. Flomax. 6. Singulair. 7. Lopressor. 8. Aspirin. PAST MEDICAL HISTORY: 1. CHF. 2. Colon cancer. 3. Kidney stones. 4. Gastroesophageal reflux disease. 5. Bronchitis. 6. Diabetes. 7. Hyperlipidemia. 8. Hypertension. 9. Horseshoe kidney. 10. BPH. PAST SURGICAL HISTORY: Partial colectomy. SOCIAL HISTORY: The patient lives alone, but has family nearby. He drinks alcohol only socially. Denies any illicit drugs and denies any smoking. FAMILY HISTORY: Noncontributory. REVIEW OF SYSTEMS: A 12-point review of system was reviewed and negative other than what was commented on the HPI. PHYSICAL EXAMINATION: VITAL SIGNS: Temperature 100.3, pulse 102, respirations 18, blood pressure 152/79, saturation 94% on room air. GENERAL: No apparent distress. Appears comfortable. Appears stated age, well nourished, well developed. HEENT: Normocephalic, atraumatic. Pupils are symmetric and round. The patient is extremely poor hearing. Trachea midline. Moist mucous membranes. CARDIOVASCULAR: Sinus tachycardia. Normal S1 and S2. Symmetric pulses. CHEST: No increased work of breathing. Symmetric expansion of the lungs, clear anteriorly. ABDOMEN: Soft, nontender, and nondistended. Positive bowel sounds. No organomegaly. Well-healed incisions without hernia. GENITOURINARY: The patient is uncircumcised. There is no evidence of phimosis. Scrotum is diffusely erythematous with mild scrotal wall thickening. The left testicle is normal-sized and shaped without any tenderness. No epididymal swelling. The right testicle is [id number] enlarged with a severely enlarged, inflamed, and indurated epididymis without any fluctuance or abscess formation. This is moderately tender to palpation. The cord above it appears to be normal without any significant tenderness. RECTAL: Deferred at this time. EXTREMITIES: No clubbing, cyanosis, or edema. MUSCULOSKELETAL: No joint deformities or joint erythema noted. Full range of motion. Strength is not tested. NEUROLOGIC: Cranial nerves 2 through 12 grossly intact. No focal or sensory-motor deficits identified. SKIN: Warm and dry. Good turgor. No rashes or lesions. LYMPHS: There is no inguinal lymphadenopathy. No lymphadenopathy in cervical, axillary, or supraclavicular regions. PSYCHIATRIC: Alert and oriented x3. Appropriate mood and affect. LABORATORY EVALUATION: The full set of labs are in the [employer] system, which I have reviewed. Of note, the patient's white count is currently 12.9 with a hemoglobin of 14.4. Creatinine is currently 1.37 with an A1c of 7.5% as of April 11. CT demonstrates no renal or ureteral calculi. There is a stable horseshoe kidney, some fluid density seen within the colon, postsurgical changes of a right hemicolectomy and prostate enlargement. Testicular ultrasound done today demonstrates scrotal wall thickening bilaterally. No intratesticular masses or torsion. There is slight asymmetry in size of the testicle without evidence of intratesticular mass. Small bilateral hydroceles, heterogeneity involving the epididymal bilaterally without evidence of increased flow. ASSESSMENT AND PLAN: A 78-year-old white male with no definitive sonographic evidence of epididymitis. However, I am actually suspicious that what the radiologist is calling scrotal wall edema is actually an extremely large and thickened epididymis. Based on clinical exam, the patient does have fairly severe right-sided epididymitis. The left epididymis feels normal. Given the severity, the patient may benefit from an epididymectomy, although it is not absolutely required. He may also improve sufficiently on his own with antibiotic therapy and NSAIDs, although this may take a more protracted course and take longer to recover. I discussed both options with the patient, antibiotics and anti-inflammatories alone along with the same treatment, but with epididymectomy on the right. After discussing both options, the patient has elected for just the antibiotics and anti-inflammatory alone. If he does not improve significantly over the next 48-72 hours or has development of abscess or persistent fevers, elevating white count, I would recommend proceeding forward with an epididymectomy on the right side. For now, I will continue to follow. I would recommend continuation of broad-spectrum antibiotics which the patient is currently on and repeat ultrasound if the patient is having progression of white count or fevers, to evaluate for a possible abscess and if the patient is not improving after approximately 2 to 3 days, he will need an epididymectomy. Otherwise, he will probably need at least 10-14 days of antibiotics which can be a taper based on culture results. I will go ahead and start him on ibuprofen therapy to help with inflammation and continue to follow along and make recommendations. The patient may also benefit from ice packs to his scrotum to help with inflammation as well as scrotal support. These can be provided by the nursing staff. Job ID: [id number]
[2019-05-01] MEDS: Piperacillin/Tazobactam 4.5 GM in Sodium Chloride 0.9% 100 ML IVPB SCH ×5 (00:49→23:24)
[2019-05-01] MEDS ORDERED: cefTRIAXone\\ROCEPHIN 1 GM in Sodium Chloride 0.9% 100 ML IVPB SCH (03:00)
[2019-05-01] MEDS: HumaLOG 300 UNITS/3 ML VIAL SC PRN ×3 (06:13→21:01)
[2019-05-01 06:14] LABS: #Eosinphils 0.1 thou/uL (0.0-0.7); #Lymphocytes 0.9 thou/uL (1.20-3.40); #Neutrophils 6.8 thou/uL (1.40-6.50); %Basophils 0.1 % (0.0-1.0); %Eosinophils 0.7 % (0.0-10.0); %Lymphocytes 9.9 % (21.0-51.0); %Monocytes 11.6 % (0.0-10.0); %Neutrophils 77.8 % (42.0-75.0); Hemoglobin 11.8 g/dL (14.0-18.0); Mean Corpuscular Hemoglobin 30.3 pg (27.0-31.0); Mean Corpuscular Volume 91.7 fL (78.0-98.0); Mean Platelet Volume 9.2 fL (7.4-10.4); Platelet Count 135 thou/uL (130-400); RBC Distribution Width 12.6 % (11.5-14.5); Red Blood Cell (RBC) Count 3.88 mill/uL (4.70-6.10); White Blood Cell (WBC) Count 8.8 thou/uL (4.8-10.8)
[2019-05-01 06:46] LABS: Anion Gap 11 mmol/L (10-20); BUN (Urea Nitrogen) 13 mg/dL (8.4-25.7); Calc. Creatinine Clearance 59 mL/min (70-130); Calcium 9.3 mg/dL (7.8-10.44); Carbon Dioxide 26 mmol/L (23-31); Chloride 103 mmol/L (98-107); Estimated GFR-MDRD 50; Glucose 174 mg/dL (83-110); Potassium 3.8 mmol/L (3.5-5.1); Sodium 136 mmol/L (136-145)
[2019-05-01] MEDS ORDERED: Ibuprofen 600 MG TAB PO SCH (08:00)
[2019-05-01] MEDS: Aspirin 81 mg Enteric Coated Tablet PO SCH (08:38)
[2019-05-01] MEDS: Famotidine 20 MG TAB PO SCH (08:38)
[2019-05-01] MEDS: Tamsulosin HCl 0.4 MG CAP PO SCH (08:39)
[2019-05-01] MEDS: Saccharomyces boulardii 250 MG CAP PO SCH (08:39)
[2019-05-01] MEDS: Metoprolol Tartrate 50 MG TAB PO SCH ×2 (08:39→20:59)
[2019-05-01] MEDS ORDERED: Insulin Glargine 10 UNITS in Pre-Filled Syringe 1 EACH SC SCH (09:00)
[2019-05-01] MEDS: Acetaminophen/Codeine 30-300mg Tablet PO PRN ×2 (12:03→23:25)
--- NOTE | 2019-05-01 17:29 | PDOC.HOSPP ---
- Subjective Subjective: pt up in bed complains of pain to her scrotum area - Objective Vital Signs & Weight: Vital Signs (12 hours) Temp Pulse Resp BP Pulse Ox 05/01/19 16:30 97.4 F L 05/01/19 12:21 97.5 F L 05/01/19 08:15 98.5 F 85 16 122/72 96 05/01/19 08:00 96 Weight Weight 202 lb 11.2 oz Result Diagrams: 05/01/19 05:33 05/01/19 05:33 Additional Labs: Accuchecks 05/01/19 05/01/19 05/01/19 16:59 11:53 04:49 POC Glucose 146 H 269 H 170 H 04/30/19 20:00 POC Glucose 252 H ROS - Review of Systems All systems: All other ROS were reviewed and found negative. Respiratory: reports: cough, dry, shortness of breath, hemoptysis, SOB with excertion, pleuritic pain, sputum, wheezing, other Cardiovascular: reports: chest pain, palpitations, orthopnea, paroxysmal noc. dyspnea, edema, light headedness, other Gastrointestinal: reports: nausea, vomitting, abdominal pain, diarrhea, constipation, melena, hematochezia, other - Medication Medications: Active Medications Generic Name Dose Route Start Last Admin Trade Name Freq PRN Reason Stop Dose Admin Acetaminophen 650 mg 04/30/19 05:47 04/30/19 18:38 Tylenol PO 650 mg Q4H PRN Administration Headache/Fever/Mild Pain (1-3) Acetaminophen/Codeine Phosphate 1 tab 05/01/19 09:52 05/01/19 12:03 Tylenol #3 PO 1 tab Q6H PRN Administration Pain Aspirin 81 mg 05/01/19 09:00 05/01/19 08:38 Ecotrin PO 81 mg DAILY REHANA Administration Atorvastatin Calcium 40 mg 04/30/19 21:00 04/30/19 20:02 Lipitor PO 40 mg HS REHANA Administration Famotidine 20 mg 05/01/19 09:00 05/01/19 08:38 Pepcid PO 20 mg DAILY REHANA Administration Piperacillin Sod/Tazobactam 100 mls @ 200 mls/hr 04/30/19 12:00 05/01/19 12: 05 Sod 4.5 gm/ Sodium Chloride IVPB 100 mls Q6HR REHANA Administration Insulin Human Lispro 0 units 05/01/19 09:51 05/01/19 12:04 Humalog SC 9 unit .AGGRESSIVE SLIDING PRN Administration Aggressive Correctional Scale Metoprolol Tartrate 50 mg 04/30/19 21:00 05/01/19 08:39 Lopressor PO 50 mg BID REHANA Administration Montelukast Sodium 10 mg 04/30/19 21:00 04/30/19 20:02 Singulair PO 10 mg HS REHANA Administration Ondansetron HCl 4 mg 04/30/19 05:47 04/30/19 17:29 Zofran IVP 4 mg Q6H PRN Administration Nausea/Vomiting Saccharomyces Boulardii 250 mg 05/01/19 09:00 05/01/19 08:39 Florastor PO 250 mg DAILY REHANA Administration Tamsulosin HCl 0.4 mg 05/01/19 09:00 05/01/19 08:39 Flomax PO 0.4 mg DAILY REHANA Administration - Exam Heart: RRR, no murmur, no gallops, no rubs, normal peripheral pulses, irregular , diminshed peripheral pulses, murmur present, II/IV, III/IV Respiratory: CTAB, no wheezes, no rales, no ronchi, normal chest expansion, no tachypnea, normal percussion, rales, rhonchi, tachypneic, wheezes Gastrointestinal: soft, non-tender, non-distended, normal bowel sounds, no palpable masses, no hepatomegaly, no splenomegaly, no bruit, tender to palpation , distended, diminished bowl sounds, voluntary guarding Hosp A/P (1) Cellulitis Code(s): L03.90 - CELLULITIS, UNSPECIFIED Status: Acute (2) BPH (benign prostatic hyperplasia) Code(s): N40.0 - BENIGN PROSTATIC HYPERPLASIA WITHOUT LOWER URINRY TRACT SYMP Status: Chronic (3) Diabetes type 2, controlled Code(s): E11.9 - TYPE 2 DIABETES MELLITUS WITHOUT COMPLICATIONS Status: Chronic Qualifiers: Diabetes mellitus complication status: with other specified complication (4) Hematuria Code(s): R31.9 - HEMATURIA, UNSPECIFIED Status: Acute - Plan pt has ckd need to be careful with using ibuprofen. will continue abx for now. He is suppose to be on eliquis, pt stopped taking it last week. will start him back on eliquis but incase he needs surgery will have to wait for 48hr. may consider lovonox.
[2019-05-01] MEDS: Atorvastatin Calcium 40 MG TAB PO SCH (20:57)
[2019-05-01] MEDS: Insulin Glargine 20 UNITS in Pre-Filled Syringe 1 EACH SC SCH (21:00)
[2019-05-01] MEDS: Montelukast Sodium 10 mg Tablet PO SCH (21:04)
[2019-05-01] MEDS: Ibuprofen 200 MG TAB PO SCH (21:04)
--- NOTE | 2019-05-01 21:52 | PRG ---
DATE OF SERVICE: 05/01/2019 SUBJECTIVE: The patient is stating that he is resting today and new medication seems to be working well. He is currently receiving Tylenol No. 3 as well as ibuprofen. He states jockstrap did not fit him and was causing discomfort, so he quit wearing it, even though a wrist brace is recommended. OBJECTIVE: VITAL SIGNS: Temperature 97.9, pulse 80, respirations 18, blood pressure 108/62, saturation 98% on room air. GENERAL: No apparent distress, communicating, and alert. Still hard of hearing. CARDIOVASCULAR: Regular rate and rhythm. ABDOMEN: Soft, nontender, and nondistended. : Scrotum is erythematous. There is still stable induration of the right epididymis without significant change from yesterday. Left testicle is normal. Penis is otherwise nonfocal. EXTREMITIES: No clubbing, cyanosis, or edema. LABORATORY DATA: On laboratory evaluation, the full set of labs are in the [employer] system, which I have reviewed. Of note, the patient's white count today is 8.8 with a creatinine of 1.37. Urine culture is growing gram-negative rods, but sensitivities and speciation is not yet back. ASSESSMENT AND PLAN: A 78-year-old white male with right-sided epididymitis and urinary tract infection, currently on Zosyn and NSAIDs with tolerable pain and no significant worsening. The patient has elected for nonoperative therapy. Continue ice packs p.r.n., ibuprofen scheduled. If creatinine begins rising, we will stop ibuprofen. Continue Zosyn until final culture results. At which point, antibiotics may be tapered based on cultures. Job ID: [id number]
[2019-05-02] MEDS: Piperacillin/Tazobactam 4.5 GM in Sodium Chloride 0.9% 100 ML IVPB SCH ×3 (05:27→18:01)
[2019-05-02] MEDS ORDERED: predniSONE 20 MG TAB PO SCH (08:00)
[2019-05-02 09:24] LABS: Anion Gap 11 mmol/L (10-20); BUN (Urea Nitrogen) 15 mg/dL (8.4-25.7); Calc. Creatinine Clearance 51 mL/min (70-130); Calcium 8.9 mg/dL (7.8-10.44); Carbon Dioxide 25 mmol/L (23-31); Chloride 104 mmol/L (98-107); Estimated GFR-MDRD 43; Glucose 253 mg/dL (83-110); Potassium 3.9 mmol/L (3.5-5.1); Sodium 136 mmol/L (136-145)
[2019-05-02] MEDS: Aspirin 81 mg Enteric Coated Tablet PO SCH (09:36)
[2019-05-02] MEDS: Polyethylene Glycol 3350 17 GM Packet PO PRN (09:36)
[2019-05-02] MEDS: Ibuprofen 200 MG TAB PO SCH (09:36)
[2019-05-02] MEDS: Metoprolol Tartrate 50 MG TAB PO SCH ×2 (09:36→20:11)
[2019-05-02] MEDS: Insulin Glargine 20 UNITS in Pre-Filled Syringe 1 EACH SC SCH ×2 (09:36→20:12)
[2019-05-02] MEDS: Tamsulosin HCl 0.4 MG CAP PO SCH (09:36)
[2019-05-02] MEDS: Saccharomyces boulardii 250 MG CAP PO SCH (09:37)
[2019-05-02] MEDS: Famotidine 20 MG TAB PO SCH (09:37)
[2019-05-02] MEDS: Acetaminophen/Codeine 30-300mg Tablet PO PRN ×2 (09:43→20:11)
[2019-05-02] MEDS: HumaLOG 300 UNITS/3 ML VIAL SC PRN ×3 (13:03→20:12)
[2019-05-02] MEDS: Montelukast Sodium 10 mg Tablet PO SCH (20:11)
[2019-05-02] MEDS: Atorvastatin Calcium 40 MG TAB PO SCH (20:11)
[2019-05-03] MEDS: Piperacillin/Tazobactam 4.5 GM in Sodium Chloride 0.9% 100 ML IVPB SCH ×4 (00:09→17:09)
[2019-05-03] MEDS: HumaLOG 300 UNITS/3 ML VIAL SC PRN (05:51)
[2019-05-03] MEDS: Polyethylene Glycol 3350 17 GM Packet PO PRN (05:56)
[2019-05-03 07:37] VITALS: TEMP 97.8
[2019-05-03] MEDS: Tamsulosin HCl 0.4 MG CAP PO SCH (08:17)
[2019-05-03] MEDS: Aspirin 81 mg Enteric Coated Tablet PO SCH (08:18)
[2019-05-03] MEDS: Metoprolol Tartrate 50 MG TAB PO SCH (08:18)
[2019-05-03] MEDS: Famotidine 20 MG TAB PO SCH (08:18)
[2019-05-03] MEDS: Saccharomyces boulardii 250 MG CAP PO SCH (08:18)
[2019-05-03] MEDS: Acetaminophen/Codeine 30-300mg Tablet PO PRN (08:22)
[2019-05-03] MEDS: Insulin Glargine 20 UNITS in Pre-Filled Syringe 1 EACH SC SCH (09:04)
--- NOTE | 2019-05-03 10:01 | PDOC.HOSPP ---
- Subjective Subjective: pt up in bed no complains - Objective Vital Signs & Weight: Vital Signs (12 hours) Temp Pulse Resp BP Pulse Ox 05/03/19 07:35 97.8 F 83 18 141/79 H 95 Weight Weight 202 lb 11.2 oz I&O: 05/02/19 05/03/19 05/04/19 06:59 06:59 06:59 Intake Total 870 1790 Balance 870 1790 Result Diagrams: 05/01/19 05:33 05/03/19 10:10 Additional Labs: Accuchecks 05/03/19 05/02/19 05/02/19 05:52 20:05 16:47 POC Glucose 202 H 228 H 226 H 05/02/19 11:28 POC Glucose 250 H ROS - Review of Systems All systems: All other ROS were reviewed and found negative. Respiratory: denies: cough, dry, shortness of breath, hemoptysis, SOB with excertion, pleuritic pain, sputum, wheezing, other - Medication Medications: Active Medications Generic Name Dose Route Start Last Admin Trade Name Freq PRN Reason Stop Dose Admin Acetaminophen 650 mg 04/30/19 05:47 04/30/19 18:38 Tylenol PO 650 mg Q4H PRN Administration Headache/Fever/Mild Pain (1-3) Acetaminophen/Codeine Phosphate 1 tab 05/01/19 09:52 05/03/19 08:22 Tylenol #3 PO 1 tab Q6H PRN Administration Pain Aspirin 81 mg 05/01/19 09:00 05/03/19 08:18 Ecotrin PO 81 mg DAILY REHANA Administration Atorvastatin Calcium 40 mg 04/30/19 21:00 05/02/19 20:11 Lipitor PO 40 mg HS REHANA Administration Famotidine 20 mg 05/01/19 09:00 05/03/19 08:18 Pepcid PO 20 mg DAILY REHANA Administration Piperacillin Sod/Tazobactam 100 mls @ 200 mls/hr 04/30/19 12:00 05/03/19 05: 47 Sod 4.5 gm/ Sodium Chloride IVPB 100 mls Q6HR REHANA Administration Insulin Glargine 20 units/ 0.2 mls @ 0 mls/hr 05/02/19 09:00 05/03/19 09:04 Miscellaneous Medication SC 0.2 mls QAM REHANA Administration Insulin Glargine 20 units/ 0.2 mls @ 0 mls/hr 05/01/19 21:00 05/02/19 20:12 Miscellaneous Medication SC 0.2 mls HS REHANA Administration Insulin Human Lispro 0 units 05/01/19 09:51 05/03/19 05:51 Humalog SC 6 unit .AGGRESSIVE SLIDING PRN Administration Aggressive Correctional Scale Metoprolol Tartrate 50 mg 04/30/19 21:00 05/03/19 08:18 Lopressor PO 50 mg BID REHANA Administration Montelukast Sodium 10 mg 04/30/19 21:00 05/02/19 20:11 Singulair PO 10 mg HS REHANA Administration Ondansetron HCl 4 mg 04/30/19 05:47 04/30/19 17:29 Zofran IVP 4 mg Q6H PRN Administration Nausea/Vomiting Polyethylene Glycol 17 gm 05/02/19 09:11 05/03/19 05:56 Miralax PO 17 gm DAILYPRN PRN Administration Constipation Saccharomyces Boulardii 250 mg 05/01/19 09:00 05/03/19 08:18 Florastor PO 250 mg DAILY REHANA Administration Tamsulosin HCl 0.4 mg 05/01/19 09:00 05/03/19 08:17 Flomax PO 0.4 mg DAILY REHANA Administration - Exam Neck: negative: supple, symmetric, no JVD, no Thyromegaly, no lymphadenopathy, no carotid bruit, JVD Heart: negative: RRR, no murmur, no gallops, no rubs, normal peripheral pulses, irregular, diminshed peripheral pulses, murmur present, II/IV, III/IV Respiratory: negative: CTAB, no wheezes, no rales, no ronchi, normal chest expansion, no tachypnea, normal percussion, rales, rhonchi, tachypneic, wheezes Hosp A/P (1) Cellulitis Code(s): L03.90 - CELLULITIS, UNSPECIFIED Status: Acute (2) BPH (benign prostatic hyperplasia) Code(s): N40.0 - BENIGN PROSTATIC HYPERPLASIA WITHOUT LOWER URINRY TRACT SYMP Status: Chronic (3) Diabetes type 2, controlled Code(s): E11.9 - TYPE 2 DIABETES MELLITUS WITHOUT COMPLICATIONS Status: Chronic Qualifiers: Diabetes mellitus complication status: with other specified complication (4) Hematuria Code(s): R31.9 - HEMATURIA, UNSPECIFIED Status: Acute - Plan will continue current abx. will stop ibuprofen and check bmp. uti indicates ecoli
[2019-05-03] MEDS ORDERED: predniSONE 20 MG TAB PO SCH (10:15)
[2019-05-03 10:52] LABS: Anion Gap 10 mmol/L (10-20); BUN (Urea Nitrogen) 15 mg/dL (8.4-25.7); Calc. Creatinine Clearance 56 mL/min (70-130); Calcium 9.2 mg/dL (7.8-10.44); Carbon Dioxide 27 mmol/L (23-31); Chloride 102 mmol/L (98-107); Estimated GFR-MDRD 48; Glucose 181 mg/dL (83-110); Potassium 3.9 mmol/L (3.5-5.1); Sodium 135 mmol/L (136-145)
[2019-05-03] MEDS: HumaLOG 300 UNITS/3 ML VIAL SC SCH ×2 (12:33→17:09)
[2019-05-03 15:46] VITALS: BP 146/83
--- NOTE | 2019-05-04 13:45 | PQF ---
DATE: 05-04-19 ATTN: DR. HAMILTON ROSSI Please exercise your independent, professional judgment in responding to the clarification form. Clinical indicators are provided on the bottom of this form for your review Please check appropriate box(s) to clarify if the following diagnosis has been ruled in or ruled out: SEPSIS [ ] Ruled in diagnosis [ ] Continue to treat [ ] Resolved [ ] Ruled out diagnosis [ ] Other diagnosis [ ] Unable to determine In addition, please specify: Present on Admission (POA): [ ] Yes [ ] No [ ] Unable to determine For continuity of documentation, please document condition throughout progress notes and discharge summary. Thank You. CLINICAL INDICATORS - SIGNS / SYMPTOMS / LABS: ER: UROSEPSIS TFR ER DX: SEPSIS, R SIDED EPIDIDYMITIS, URINARY TRACT INFECTION H&P: UTI, SEPSIS, CKD3, UNCONTROLLED DM, UNCONTROLLED HTN PN DR. ROSSI 05-02-19: ACUTE CELLULITIS, BPH, DM 2, HEMATURIA TEMP: 04-30-19: 100.3, 99.5 HR: 04-30-19: 101, 102 RISK FACTORS: ER DX: SEPSIS, R SIDED EPIDIDYMITIS, UTI, HX OF KIDNEY STONES, HX PROSTATE INFECTION, DM2 TREATMENTS: ER: CEFTRIAXONE IV, NS IVF 1L MAR: ZOSYN IV (This form is maintained as a part of the permanent medical record) 2014 [employer] All Rights Reserved NORMA [email or web address] Office: [phone] [facility]
== END 2019-05-03 17:27 | disposition home or self-care (01) | DRG 872 ==
LOC: ERS 02:57 → T4-A 04:30
PROVIDERS: ADMIT Hospitalist; ATTEND Hospitalist
DX: A41.9 Sepsis, unspecified organism (principal); N39.0 Urinary tract infection, site not specified; I13.0 Hypertensive heart and chronic kidney disease with heart failure and stage 1 through stage 4 chronic kidney disease, or unspecified chronic kidney disease; L03.90 Cellulitis, unspecified; K21.9 Gastro-esophageal reflux disease without esophagitis; N18.3 Chronic kidney disease, stage 3 (moderate); E78.5 Hyperlipidemia, unspecified; J45.909 Unspecified asthma, uncomplicated; I50.9 Heart failure, unspecified; F32.9 Major depressive disorder, single episode, unspecified; R31.9 Hematuria, unspecified; N45.1 Epididymitis; N40.0 Benign prostatic hyperplasia without lower urinary tract symptoms; E11.319 Type 2 diabetes mellitus with unspecified diabetic retinopathy without macular edema; E11.22 Type 2 diabetes mellitus with diabetic chronic kidney disease; B96.20 Unspecified Escherichia coli [E. coli] as the cause of diseases classified elsewhere; Z79.4 Long term (current) use of insulin; Z87.442 Personal history of urinary calculi; Z90.49 Acquired absence of other specified parts of digestive tract; Z85.038 Personal history of other malignant neoplasm of large intestine
CPT/HCPCS: 36415; 36416; 74176; 76870; 80048; 85025; 87086; 96361; 96365; J0696; J1815; J2405; J2543; J3490

== ENCOUNTER 2019-12-10 14:33 | Inpatient (IN) | payer MEDICARE ==
[2019-12-10] MEDS ORDERED: Iopamidol-370 76% 500 ML 1 ML ONE (14:39)
[2019-12-10] MEDS ORDERED: Ondansetron ODT 4 MG TAB SL PRN (16:40)
[2019-12-10] MEDS ORDERED: Ondansetron PF 4 MG/2 ML Vial IVP PRN ×2 (16:40→19:28)
--- NOTE | 2019-12-10 16:42 | CT ---
CT PULMONARY ANGIOGRAM WITH IV CONTRAST AND 3D POSTPROCESSING: Date: 12/10/2019 HISTORY: Pleural effusion. Abnormal chest x-ray. FINDINGS: There is good contrast opacification of the pulmonary arterial vasculature without filling defects to suggest pulmonary embolism. The thoracic aorta is well opacified without aneurysm or dissection. There is a large right pleural effusion with atelectatic change in the right lung. There is a small a mount of aerated lung on the right with multiple small subcentimeter nodules. There is loculation of the right pleural effusion, particularly in the upper hemithorax. Multiple nodular densities are also seen in the left lung parenchyma measuring up to 1.6 cm. There are degenerative changes in the spine. No pericardial or left pleural effusion is seen. Upper abdominal tomograms demonstrate cirrhosis of the liver. IMPRESSION: 1. No CT evidence of pulmonary embolism. 2. Large right pleural effusion with bilateral parenchymal and pleural based nodules. Findings are s uspicious for malignancy/metastatic disease. POS: OFF
[2019-12-10 18:49] VITALS: BMI 28.8
[2019-12-10] MEDS ORDERED: HumaLOG 300 UNITS/3 ML VIAL SC PRN (19:28)
[2019-12-10] MEDS ORDERED: Guaifenesin DM 100-10/5 ML UDCUP PO PRN (19:28)
[2019-12-10] MEDS ORDERED: Acetaminophen 650 MG Suppository PR PRN (19:28)
[2019-12-10] MEDS ORDERED: Dextrose 5% in Water 1,000 ML IV PRN (19:28)
[2019-12-10] MEDS ORDERED: Ondansetron ODT 4 MG TAB PO PRN (19:28)
[2019-12-10] MEDS ORDERED: Dextrose 50% Abboject 50 ML SYRINGE SLOW IVP PRN (19:28)
[2019-12-10] MEDS ORDERED: Acetaminophen 325 MG TAB PO PRN (19:28)
--- NOTE | 2019-12-10 20:45 | HP ---
PRIMARY CARE PHYSICIAN: Dr. Mathis at [facility]. CHIEF COMPLAINT: Cough and shortness of shortness of breath. HISTORY OF PRESENT ILLNESS: This is a 78-year-old white male with known history of COPD, congestive heart failure, diabetes, hyperlipidemia, hypertension, and atrial fibrillation, beginning with last year on Eliquis, who is also a long-time smoker, quit 2-3 years ago. The patient reports that he gets flares of bronchitis fairly regularly at least once per year, but usually it will go away in a month or so. The patient reports that a month ago, he started having coughing and shortness of breath especially dyspnea on exertion. He has been tried on antibiotics and steroids as an outpatient without any improvement, so he went into the emergency room today in [place]. There, he had a chest x-ray showing a large right pleural effusion, it has not been seen before on previous x-rays from about one year ago. The patient was transferred here for further workup. CT scan was done in the emergency room that showed a large right pleural effusion with bilateral parenchymal and pleural-based nodules suspicious for malignancy or metastatic disease, the right pleural fusion does have sequela of being loculated. The patient was given a nebulizer treatment in the emergency room and a dose of methylprednisolone without any improvement. He was saturating okay on room air, but with the addition of oxygen, he did have less shortness of breath. REVIEW OF SYSTEMS: CONSTITUTIONAL: No fevers, no chills. EYES: The patient has some very blurred vision in the left eye ever since his discharge from the hospital a year ago. He reports he never went to go see an eye doctor because he does not have enough money. He can see shapes in that eye, but it is very blurry and he cannot read with it or see details. No acute changes to this. No pain. ENT: No congestion, drainage, or sore throat. CARDIOVASCULAR: No palpitations or racing heart. He does have some anterior wall chest pain, but only during coughing spells. PULMONARY: See HPI. GASTROINTESTINAL: No abdominal pain. No nausea or vomiting. No diarrhea. He does have chronic constipation and states he needs something for that right now. GENITOURINARY: No dysuria or hematuria. MUSCULOSKELETAL: No muscle aches or joint pains. SKIN: No rashes or lesions noted. NEUROLOGIC: No numbness, tingling, or focal weakness. PAST MEDICAL HISTORY: 1. COPD. 2. Diastolic congestive heart failure with a normal ejection fraction 1 year ago. 3. Gastroesophageal reflux disease. 4. Diabetic retinopathy. 5. Hiatal hernia. 6. Diabetes mellitus type 2, on insulin therapy. 7. Hyperlipidemia. 8. Hypertension. 9. Chronic renal failure stage 2. PAST SURGICAL HISTORY: Partial colectomy in 2012 for colon cancer that did not require any radiation or chemotherapy. PAST PSYCHIATRIC HISTORY: Depression. SOCIAL HISTORY: The patient smoked a pack per day for greater than 30 years, quit 2-3 years ago. He drinks very rare beer. No illicit drugs. He is a , lives by himself, but is next door to his children. The patient states that he is a do not attempt resuscitation and states that should he be incapacitated, his children would make medical decisions for him that is his son Shyam Alvarez and his daughter, Coby Alvarez. FAMILY HISTORY: His mom of lung cancer. She did not smoke, but his father did and so she was around a lot of secondhand smoke. ALLERGIES: NKDA MEDICATIONS: Reviewed with patient and confirmed in chart PHYSICAL EXAMINATION: VITAL SIGNS: Blood pressure 172/82, pulse 100, respirations 24, O2 saturation 92% on 3 L nasal cannula, temperature 97.8. GENERAL: This is a well-developed, well-nourished white male, in no acute distress, on oxygen. HEENT: Pupils are equal, round, and reactive to light. Oropharynx clear without lesions, erythema, or exudate. NECK: Supple. No lymphadenopathy. No thyroid nodules or enlargement. HEART: Regular rate and rhythm. No murmurs, rubs, or gallops. LUNGS: The patient has decreased breath sounds throughout most of the right lung except the very top, has normal breath sounds on the left. No wheezing. No crackles. No rhonchi. No increased work of breathing while on oxygen and at rest. ABDOMEN: Soft, nontender to palpation. Normoactive bowel sounds. No hepatosplenomegaly or other masses. EXTREMITIES: No clubbing, cyanosis, or edema. SKIN: No rashes or other lesions noted. NEUROLOGIC: Intact strength and sensation in all extremities. No facial droop. PSYCHIATRIC: Alert and oriented x3. Normal mood and affect. LABORATORY DATA: CBC with a white blood cell count of 9.1, hemoglobin 12.4, hematocrit 39.1, and platelet count 274. Complete metabolic panel is notable for creatinine of 1.32, which is chronic for him. Glucose of 183, ALT of 66, and alkaline phosphatase of 246 and an albumin of 3.3. The rest was normal. Troponin is negative x1. Brain natriuretic peptide was negative. A CT angio of the chest without contrast shows no evidence for pulmonary embolism, but there is a large right pleural effusion with bilateral parenchymal and pleural-based nodules. Findings suspicious for malignancy/metastatic disease with notation of loculation of the right pleural effusion particularly in the upper hemithorax. ASSESSMENT: 1. Right pleural effusion with nodules, likely malignant. We will consult Dr. Gupta in the morning. The patient will need a thoracentesis or perhaps a thoracostomy should it be too loculated to remove the fluid. This can be sent for pathology to find out what kind of cancer might be causing it, and the patient does not appear to have any infection at this time, so we will hold off on any antibiotics. 2. History of paroxysmal atrial fibrillation, on Eliquis. We will continue Eliquis unless needs to be held by CT Surgery in the future. 3. Diabetes mellitus type 2, insulin dependent. We will resume the patient's home medications. We will put on insulin sliding scale before meals and at bedtime blood sugars and we will give a diabetic diet. 4. History of diastolic congestive heart failure. We will put on fluid restriction. 5. History of gastroesophageal reflux disease. We will continue patient's famotidine. 6. Deep venous thrombosis prophylaxis. The patient is already on Eliquis. CODE STATUS: I did discuss this with the patient. He is adamant that he is a do not attempt resuscitation. His children Shyam and Coby Alvarez would be his medical decision maker should he be incapacitated. Job ID: [id number] [facility]
[2019-12-10] MEDS ORDERED: Apixaban 5 MG TAB PO SCH (21:00)
[2019-12-10] MEDS: Montelukast Sodium 10 mg Tablet PO SCH (21:35)
[2019-12-10] MEDS: Apixaban 2.5 MG TAB PO SCH (21:36)
[2019-12-10] MEDS: Metoprolol Tartrate 50 MG TAB PO SCH (21:36)
[2019-12-10] MEDS: Insulin Glargine 20 UNITS in Pre-Filled Syringe 1 EACH SC SCH (21:37)
[2019-12-10] MEDS: Atorvastatin Calcium 40 MG TAB PO SCH (21:37)
[2019-12-10] MEDS: Senokot S 8.6-50 MG TAB PO PRN (21:47)
[2019-12-10] MEDS: HumaLOG 300 UNITS/3 ML VIAL SC PRN (23:38)
[2019-12-11] MEDS: Apixaban 2.5 MG TAB PO SCH ×2 (01:28→20:49)
[2019-12-11 06:02] LABS: #Lymphocytes 0.6 thou/uL (1.20-3.40); #Monocytes 0.6 thou/uL (0.11-0.59); #Neutrophils 10.4 thou/uL (1.40-6.50); %Eosinophils 0.2 % (0.0-10.0); %Lymphocytes 5.4 % (21.0-51.0); %Monocytes 5.5 % (0.0-10.0); %Neutrophils 88.9 % (42.0-75.0); Hemoglobin 12.3 g/dL (14.0-18.0); Mean Corpuscular HGB CONC 32.9 g/dL (32.0-36.0); Mean Corpuscular Hemoglobin 29.6 pg (27.0-31.0); Mean Platelet Volume 8.9 fL (7.4-10.4); Platelet Count 270 thou/uL (130-400); RBC Distribution Width 13.2 % (11.5-14.5); Red Blood Cell (RBC) Count 4.16 mill/uL (4.70-6.10); White Blood Cell (WBC) Count 11.7 thou/uL (4.8-10.8)
[2019-12-11 06:21] LABS: Anion Gap 12 mmol/L (10-20); BUN (Urea Nitrogen) 25 mg/dL (8.4-25.7); Calc. Creatinine Clearance 66 mL/min (70-130); Calcium 9.2 mg/dL (7.8-10.44); Carbon Dioxide 24 mmol/L (23-31); Chloride 102 mmol/L (98-107); Estimated GFR-MDRD 56; Glucose 241 mg/dL (83-110); Potassium 4.1 mmol/L (3.5-5.1); Sodium 134 mmol/L (136-145)
[2019-12-11] MEDS: HYDROcodone/Acetaminophen 10/325 mg Tablet PO PRN ×2 (06:43→22:52)
[2019-12-11] MEDS: Insulin Glargine 20 UNITS in Pre-Filled Syringe 1 EACH SC SCH ×2 (08:45→20:55)
[2019-12-11] MEDS: Famotidine 20 MG TAB PO SCH (08:45)
[2019-12-11] MEDS: Metoprolol Tartrate 50 MG TAB PO SCH ×2 (08:46→20:49)
[2019-12-11] MEDS: Tamsulosin HCl 0.4 MG CAP PO SCH (08:46)
--- NOTE | 2019-12-11 11:39 | OP ---
DATE OF PROCEDURE: 12/11/2019 PROCEDURE PERFORMED: Right thoracentesis. PREOPERATIVE DIAGNOSIS: Right pleural effusion. POSTOPERATIVE DIAGNOSIS: Right pleural effusion. ANESTHESIA: Local. DESCRIPTION OF PROCEDURE: Informed consent was obtained prior to the procedure. The patient understood the risks involved including bleeding, infection, and external lung puncture and agreed to proceed. The right posterior hemithorax was cleansed with chlorhexidine and draped sterilely. The 5th-6th interspace at the midscapular line was used as the entry site. 1% lidocaine was used to anesthetize the entry site. The pleural space was entered with a [id number] catheter and approximately 2 L of bloody pleural fluid was removed and sent for appropriate studies. He tolerated the procedure quite well. Job ID: [id number]
[2019-12-11 12:21] LABS: Fluid, Triglycerides 48 mg/dL (Not Available); Pleural Fluid, Amylase Less than 30 U/L (Not Available); Pleural Fluid, Glucose 252 mg/dL; Pleural Fluid, LDH 526 U/L (Not Available); Pleural Fluid, Protein 4.3 g/dL
--- NOTE | 2019-12-11 12:21 | CON ---
DATE OF CONSULTATION: 12/11/2019 REASON FOR CONSULTATION: Pleural effusion. HISTORY OF PRESENT ILLNESS: This is a 78-year-old, who was admitted to the hospital with increasing shortness of breath over the last 2 to 3 weeks. He denies any fever or chills. He simply states he is short of breath with exertion. He denies any previous trauma. He denies any previous history of heart failure. He does have a remote history of colon cancer back in 2012 with no metastasis. PAST MEDICAL HISTORY: 1. Chronic obstructive pulmonary disease. 2. Diastolic cardiac dysfunction. 3. Gastroesophageal reflux. 4. Diabetic retinopathy. 5. Hiatal hernia. 6. Type 2 diabetes mellitus. 7. Hyperlipidemia. 8. Hypertension. 9. Chronic kidney disease stage 2. PAST SURGICAL HISTORY: Partial colectomy in 2012 for colon cancer. SOCIAL HISTORY: Quit smoking 2 to 3 years ago after smoking pack a day for 30 years. Rarely drinks alcohol. Does not use any illicit drugs. ALLERGIES: NONE. FAMILY MEDICAL HISTORY: Remarkable for lung cancer. MEDICATIONS: Prior to admission; 1. Eliquis 2.5 mg b.i.d. 2. MiraLAX 17 g daily. 3. Proventil HFA metered-dose inhaler two puffs every 6 hours as needed. 4. Trulicity 0.75 mg subcu weekly. 5. Lantus insulin 20 units in the morning and 20 units in the evening. 6. Pepcid 20 mg daily. 7. Pravastatin 80 mg daily. 8. Metoprolol 50 mg b.i.d. 9. Tamsulosin 0.4 mg daily. 10. Montelukast 10 mg daily. REVIEW OF SYSTEMS: Denies any weight loss, fever, chills, nausea, vomiting, hematemesis, melena, hematochezia, hematuria, or dysuria. PHYSICAL EXAMINATION: VITAL SIGNS: Temperature 98, pulse 90, respirations 16, O2 saturation 94% on 2 L, and blood pressure 113/72. The patient is 5 feet 11 inches and weighs 206 pounds. GENERAL: He is awake and alert, in no distress. HEENT: Pupils reactive. Sclerae anicteric. Oropharynx is clear. NECK: No adenopathy or JVD. LUNGS: He has diminished breath sounds in the right base with dullness to percussion over the right, left side is clear. CARDIAC: S1 and S2, regular. ABDOMEN: Soft, nontender, and nondistended. EXTREMITIES: No clubbing, cyanosis, or edema. LABORATORY DATA: White blood cell count 11.7, hematocrit 37.4, and platelet count 270. Sodium 134, potassium 4.1, chloride 102, CO2 of 24, BUN 25, creatinine 1.3, glucose 241. X-ray shows a rather massive right-sided pleural effusion with areas of loculation. ASSESSMENT: Right pleural effusion-likely malignant. PLAN: Diagnostic and therapeutic right-sided thoracentesis. Risks discussed with the patient. He agrees to proceed. See separate operative report. Job ID: [id number]
[2019-12-11] MEDS: HumaLOG 300 UNITS/3 ML VIAL SC PRN ×3 (12:34→20:58)
[2019-12-11 13:08] LABS: RBC Count-Automated (BF) 196178 /cumm; WBC/Nucleated-Auto (BF) 388 uL
[2019-12-11 13:09] LABS: BF Color Red; Body Fluid Source Thoracentesis Fluid; Clarity Cloudy/Turbid (Clear)
[2019-12-11 13:13] LABS: BF Segmented Neutrophils 3 %; Cell Count Non Hematic 90 %; Lymphocytes 7 %
--- NOTE | 2019-12-11 20:38 | PDOC.HOSPP ---
- Subjective Encounter Date: 12/11/19 Subjective: Feeling ok. Tolerated the thoracentesis well. - Objective Vital Signs & Weight: Vital Signs (12 hours) Temp Pulse Resp BP Pulse Ox 12/11/19 20:35 98.2 F 81 20 143/73 H 100 12/11/19 15:41 98 F 96 19 128/72 93 L 12/11/19 11:00 98 F 96 17 136/70 93 L 12/11/19 08:57 90 16 94 L Weight Weight 206 lb 12.8 oz I&O: 12/10/19 12/11/19 12/12/19 06:59 06:59 06:59 Intake Total 480 Output Total 220 Balance -220 480 Result Diagrams: 12/11/19 05:18 12/11/19 05:18 Additional Labs: Accuchecks 12/11/19 12/11/19 12/11/19 15:47 11:48 05:05 POC Glucose 358 H 329 H 236 H 12/10/19 21:06 POC Glucose 300 H Hospitalist ROS - Medication Medications: Active Medications Generic Name Dose Route Start Last Admin Trade Name Freq PRN Reason Stop Dose Admin Acetaminophen 650 mg 12/10/19 19:28 12/11/19 01:32 Tylenol PO 650 mg Q4H PRN Administration Headache/Fever/Mild Pain (1-3) Hydrocodone Bitart/Acetaminophen 1 tab 12/11/19 06:38 12/11/19 06:43 [place] 10/325 PO 1 tab Q6H PRN Administration Pain Albuterol/Ipratropium 3 ml 12/11/19 06:37 12/11/19 08:57 Duoneb NEB 3 ml Q4H PRN Administration SOB &/or Wheezing Apixaban 2.5 mg 12/10/19 21:00 12/11/19 01:28 Eliquis PO Not Given BID REHANA Atorvastatin Calcium 40 mg 12/10/19 21:00 12/10/19 21:37 Lipitor PO Not Given HS REHANA Famotidine 20 mg 12/11/19 09:00 12/11/19 08:45 Pepcid PO 20 mg DAILY REHANA Administration Insulin Glargine 20 units/ 0.2 mls @ 0 mls/hr 12/10/19 21:00 12/10/19 21:37 Miscellaneous Medication SC 0.2 mls HS REHANA Administration Insulin Glargine 20 units/ 0.2 mls @ 0 mls/hr 12/11/19 09:00 12/11/19 08:45 Miscellaneous Medication SC 0.2 mls QAM REHANA Administration Insulin Human Lispro 0 units 12/10/19 19:28 12/11/19 16:21 Humalog SC 5 unit .BEDTIME SLIDING SC PRN Administration Bedtime Correctional Scale Insulin Human Lispro 0 units 12/10/19 19:28 12/11/19 06:45 Humalog SC 4 unit .MODERATE SLIDING SC PRN Administration Moderate Correctional Scale Metoprolol Tartrate 50 mg 12/10/19 21:00 12/11/19 08:46 Lopressor PO 50 mg BID REHANA Administration Montelukast Sodium 10 mg 12/10/19 21:00 12/10/19 21:35 Singulair PO 10 mg HS REHANA Administration Senna/Docusate Sodium 2 tab 12/10/19 19:28 12/10/19 21:47 Senokot S PO 2 tab BID PRN Administration Constipation Tamsulosin HCl 0.4 mg 12/11/19 09:00 12/11/19 08:46 Flomax PO 0.4 mg DAILY REHANA Administration - Exam General Appearance: NAD, awake alert Heart: RRR, no murmur, no gallops, no rubs, normal peripheral pulses Respiratory: no wheezes, no rales Respiratory - other findings: Diminished right base. Gastrointestinal: soft, non-tender, non-distended, normal bowel sounds, no palpable masses, no hepatomegaly, no splenomegaly, no bruit Extremities: no cyanosis, no clubbing, no edema Skin: normal turgor, no lesions, no rashes Musculoskeletal: normal tone, normal strength, no muscle wasting Psychiatric: normal affect, normal behavior, A&O x 3 Hosp A/P (1) Pleural effusion Code(s): J90 - PLEURAL EFFUSION, NOT ELSEWHERE CLASSIFIED Status: Acute (2) Lung nodule, multiple Status: Acute (3) Atrial fibrillation and flutter Code(s): I48.91 - UNSPECIFIED ATRIAL FIBRILLATION; I48.92 - UNSPECIFIED ATRIAL FLUTTER Status: Chronic (4) BPH (benign prostatic hyperplasia) Code(s): N40.0 - BENIGN PROSTATIC HYPERPLASIA WITHOUT LOWER URINRY TRACT SYMP Status: Chronic (5) COPD (chronic obstructive pulmonary disease) Status: Chronic (6) Diabetes type 2, controlled Code(s): E11.9 - TYPE 2 DIABETES MELLITUS WITHOUT COMPLICATIONS Status: Chronic Qualifiers: Diabetes mellitus complication status: with other specified complication (7) Dyslipidemia Code(s): E78.5 - HYPERLIPIDEMIA, UNSPECIFIED Status: Chronic (8) Hypertension Code(s): I10 - ESSENTIAL (PRIMARY) HYPERTENSION Status: Chronic - Plan Has multiple nodules and bloody pleural fluid. Highly suspicious for cancer. He is prepared for that diagnosis. Discussed options. He can likely discharge tomorrow to have outpatient follow up. Explained that he may have a recurrence of the effusion.
[2019-12-11] MEDS: Montelukast Sodium 10 mg Tablet PO SCH (20:49)
[2019-12-11] MEDS: Senokot S 8.6-50 MG TAB PO PRN (20:49)
[2019-12-11] MEDS: Atorvastatin Calcium 40 MG TAB PO SCH (20:54)
--- NOTE | 2019-12-12 08:00 | RAD ---
SINGLE VIEW CHEST: Date: 12/12/2019 COMPARISON: 12/10/2019. HISTORY: Status post thoracocentesis. FINDINGS: Single view of the chest shows a cardiomediastinal silhouette which is upper limits of normal in size . There is a small right pleural effusion without evidence of pneumothorax. The pleural effusion has decreased in size compared to the prior exam. Atelectasis is seen in the right lung base. IMPRESSION: Small right pleural effusion with adjacent atelectasis. POS: C
[2019-12-12] MEDS: Tamsulosin HCl 0.4 MG CAP PO SCH (09:36)
[2019-12-12] MEDS: Famotidine 20 MG TAB PO SCH (09:37)
[2019-12-12] MEDS: Metoprolol Tartrate 50 MG TAB PO SCH (09:37)
[2019-12-12] MEDS: Apixaban 2.5 MG TAB PO SCH (09:37)
[2019-12-12] MEDS: Insulin Glargine 20 UNITS in Pre-Filled Syringe 1 EACH SC SCH (09:38)
--- NOTE | 2019-12-12 09:40 | PRG ---
DATE OF SERVICE: 12/12/2019 SUBJECTIVE: He is breathing much better today. He wants to go home. OBJECTIVE: VITAL SIGNS: Temperature 97.4, pulse 87, respirations 20, sat 99%, and blood pressure 114/64. HEENT: Unremarkable. NECK: No JVD. LUNGS: He has diminished breath sounds in the right base compared to the left. CARDIAC: S1 and S2. Regular. ABDOMEN: Soft. EXTREMITIES: No edema. LABORATORY DATA: His labs show thoracentesis fluid that is exudative with a total protein of 4.3, LDH of 526, and a predominance of histiocytes. The cytology is pending. 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 RECOMMENDATIONS: He is okay to go home. He has given me his phone number, so I can call him with the cytology results when those are available. I will be out of town starting Tuesday, so for some reason, he does not get the full results from me. He can get them through Dr. Mathis. Ultimately, he will probably need referral to Oncology. Job ID: [id number]
[2019-12-12 12:00] VITALS: BP 141/86; TEMP 97.5
--- NOTE | 2019-12-13 12:28 | DIS ---
DATE OF ADMISSION: 12/10/2019 DATE OF DISCHARGE: 12/12/2019 DISCHARGE DIAGNOSES: 1. Right pleural effusion. 2. Multiple lung nodules. 3. Atrial fibrillation. 4. Benign prostatic hypertrophy. 5. Chronic obstructive pulmonary disease. 6. Diabetes mellitus. 7. Dyslipidemia. 8. Hypertension. HISTORY OF PRESENT ILLNESS: This patient is a 78-year-old male, who presented to the emergency department with cough and shortness of breath. The patient was a long-time smoker, quit 2 to 3 years prior. Has had some recurrent episodes of bronchitis, was seen his PCP and has been started on antibiotics; however, failed to improve, therefore, presented to the emergency department. In the emergency department, the patient underwent a CT scan of the chest, which revealed large right pleural effusion with bilateral parenchymal and pleural-based nodules suspicious for malignancy/metastatic disease. There was no evidence of pulmonary embolus. The patient's white count was 11.7. Chemistries only notable for hyperglycemia. HOSPITAL COURSE: The patient was admitted. He was seen in consultation by Pulmonary, who subsequently performed a thoracentesis removing about 2 L of bloody fluid. The patient felt substantially better. Followup chest x-ray in the following morning only revealed a small amount of residual right pleural fluid. The patient's exam had substantially improved and he was felt to be stable for discharge to home. DISCHARGE PHYSICAL EXAMINATION: VITAL SIGNS: His temperature was 97.5, pulse 87 to 108, respirations 19, O2 saturations 95% on room air, BP 141/86. GENERAL: He was awake, alert, oriented, pleasant, and cooperative. HEART: Regular without murmurs. LUNGS: Again slightly diminished at the right base, but otherwise generally clear. ABDOMEN: Benign. EXTREMITIES: No edema. DISPOSITION: The patient is discharged to home. ACTIVITY: As tolerated. DIET: He will be on a diabetic heart healthy diet. MEDICATIONS: Include, 1. Tamsulosin 0.4 mg daily. 2. Singulair 10 mg daily. 3. Pepcid 20 mg daily. 4. Lantus 20 units subcu b.i.d. 5. Metoprolol 50 mg p.o. b.i.d. 6. Trulicity 0.75 inject q.7 days. 7. Eliquis 2.5 mg b.i.d. 8. Proventil HFA two puffs q.4 hours p.r.n. 9. MiraLAX p.r.n. 10. Atorvastatin 40 mg daily. FOLLOWUP: He is to follow up with Dr. María Mathis in [place]. Dr. Nolen gave him his card with his information and indicated he would call the patient with the cytology results and further followup will be based on that information. TIME SPENT: Total time in discharge activities was greater than 30 minutes. Job ID: [id number] MTDD
--- NOTE | 2019-12-14 07:32 | PQF ---
TIN RICHTER SCOTT E MD [id number] CLINICAL DOCUMENTATION CLARIFICATION FORM: POST DISCHARGE Addendum to original discharge summary date: ____ Late entry note date: __ DATE:12/14/2019 ATTN: Ector Tobin Please exercise your independent, professional judgment in responding to the clarification form. Clinical indicators are provided on the bottom of this form for your review In your clinical opinion based on clinical findings below, can you please identify etiology of Pleural effusion if due to: Please check appropriate box(s): [ ] Malignancy, please specify Malignant neoplasm: [ ] Diastolic CHF, please specify Acuity of CHF: [ ] Acute [ ] Chronic [ ] Acute on Chronic [ ] Other diagnosis [ ] Unable to determine In addition, please specify: Present on Admission (POA): [ ] Yes [ ] No [ ] Unable to determine For continuity of documentation, please document condition throughout progress notes and discharge summary. Thank You. CLINICAL INDICATORS - SIGNS / SYMPTOMS / LABS Laboratory 12/10 WBC 11.7, RBC 4.16, Hgb 12.3, Hct 37.4, Neutrophils 88.9% Laboratory 12/10 Thoracentesis Fluid: Cloudy/Turbid, WBC 388, Triglyceride 48, Total protein 4.3, LDH 526, Glucose 252, Amylase less than 30 Pathology report 12/10 Diagnosis: No malignant cells identified H&P p1 / Dr Ferrara Pt reports that he gets flares of bronchitis faily regularly at least once a year H&P p1 12/[address] scan was found in ER that showed a large right pleural effusion with bilateral parenchymal and pleural based nodules suspecious for malignancy or metastatic disease Pulmonology consult p1 12/10 Dr Nolen He does have a remote history of colon cancer back in 28/09 with no metastasis Hospitalist p5 3/3 Dr Owens - Lung nodule, multiple Chest Xray 12/09 Impression: Large right pleural effusion with bilateral parenchymal and pleural based nodules ED Notes p3 12/09 - possibly newly diagnosed lung cancer PN p1 12/11 Dr. 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 All Rights Reserved [email or web address]
--- NOTE | 2019-12-15 15:49 | EKG ---
Test Reason : Blood Pressure : / mmHG Vent. Rate : 093 BPM Atrial Rate : 093 BPM P-R Int : 174 ms QRS Dur : 084 ms QT Int : 370 ms P-R-T Axes : 075 -14 021 degrees QTc Int : 460 ms Normal sinus rhythm Inferior infarct , age undetermined Abnormal ECG Confirmed by OSWALD CISNEROS, JEWEL ([id number]), development editor THELMA PEARSON ([id number]) on 12/15/2019 3:48:52 PM Referred By: Confirmed By:JEWEL AKERS MD
== END 2019-12-12 12:04 | disposition home or self-care (01) | DRG 187 ==
LOC: ERS 14:33 → T4-B 17:57
PROVIDERS: ADMIT Emergency Medicine; ATTEND Emergency Medicine
PROC: 0W993ZZ Drainage of Right Pleural Cavity, Percutaneous Approach (ICD-10-PCS; principal; 2019-12-11)
DX: J90 Pleural effusion, not elsewhere classified (principal); I50.32 Chronic diastolic (congestive) heart failure; I13.0 Hypertensive heart and chronic kidney disease with heart failure and stage 1 through stage 4 chronic kidney disease, or unspecified chronic kidney disease; J44.9 Chronic obstructive pulmonary disease, unspecified; K21.9 Gastro-esophageal reflux disease without esophagitis; N18.2 Chronic kidney disease, stage 2 (mild); E11.22 Type 2 diabetes mellitus with diabetic chronic kidney disease; E78.5 Hyperlipidemia, unspecified; E11.319 Type 2 diabetes mellitus with unspecified diabetic retinopathy without macular edema; R91.8 Other nonspecific abnormal finding of lung field; I48.0 Paroxysmal atrial fibrillation; N40.0 Benign prostatic hyperplasia without lower urinary tract symptoms; Z90.49 Acquired absence of other specified parts of digestive tract; Z85.038 Personal history of other malignant neoplasm of large intestine; Z79.899 Other long term (current) drug therapy; Z79.01 Long term (current) use of anticoagulants; Z79.4 Long term (current) use of insulin; Z87.891 Personal history of nicotine dependence
CPT/HCPCS: 36415; 36416; 71045; 71275; 80048; 82150; 82945; 83615; 83986; 84157; 84478; 85025; 85060; 87070; 87116; 87205; 87206; 88112; 88305; 89051; 93005; 94640; 94760; 96360; J1815; J7620; Q9967

== ENCOUNTER 2020-01-22 09:38 | Outpatient (CLI) | payer MEDICARE ==
--- NOTE | 2020-01-22 11:47 | PET ---
Exam: PET SCAN WITH CT ATTENUATION CORRECTION: HISTORY: Ascending colon cancer. . COMPARISON: None TECHNIQUE: PET scan with CT attenuation correction was performed from the base of the brain to the pr oximal thighs following the intravenous administration of 10.9 mCi of [id number]. FINDINGS: Head and neck: No abnormal FDG localization. Chest: There are multiple pleural-based hypermetabolic nodules throughout the left and right pleural margin. 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 There are lung parenchymal nodules in the left lung, noted on the CT used for attenuation correction. The majority of these nodules are too small to adequ ately characterize on PET imaging but are suspected to represent parenchymal metastases. Abdomen and pelvis: There is increased FDG localization involving the liver. There is a right hepatic lobe lesion with a maximum SUV of 4.4. There is a second right hepatic lobe lesion with a maximum SUV of 5.3. 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 No evidence of hypermetabolic lymph nodes in the abdomen or pelvis. There is heterogeneous FDG localization in what appears to be an enlarged prostate gland with a maximum SUV of 2.9. Correlate with PSA levels. CT used for attenuation correction demonstrate a right hemicolectomy. No abnormal FDG localization at the anastomosis site. No evidence of adjacent hypermetabolic lymph nodes. Osseous structures: Focus of increased FDG localization involving the right iliac wing with a maximum SUV of 2.8. IMPRESSION: 1. Extensive pleural and lung parenchymal metastatic deposits. 2. Multifocal hepatic metastases. 2. Possible prostate malignancy. Consider evaluation with serum PSA. 4. Possible osseous metastatic lesion in the right iliac wing. Transcribed Date/Time: 01/22/2020 2:08 PM
== END 2020-01-22 09:39 | disposition home or self-care (01) ==
LOC: PET 09:38
PROVIDERS: ATTEND Internal Medicine Hematology & Oncology
DX: C18.2 Malignant neoplasm of ascending colon (principal); C78.7 Secondary malignant neoplasm of liver and intrahepatic bile duct; C78.00 Secondary malignant neoplasm of unspecified lung
CPT/HCPCS: 78815; A9552

== ENCOUNTER 2020-02-19 09:12 | Day surgery (SDC) | payer MEDICARE ==
[~2020-02-19 09:12] MED LIST: BEVACIZUMAB AWWB IVPB SCH; DEXTROSE 5% IVPB SCH; FLUOROURACIL IVPB SCH; Leucovorin Calcium 350 MG, Leucovorin Calcium 50 MG in Dextrose 5% in Water 50 ML IVPB SCH; OXALIPLATIN IVPB SCH; Palonosetron HCl 0.25 MG in Sodium Chloride 0.9% 50 ML IVPB SCH; SODIUM CHLORIDE 0.9% IVPB SCH; WATER IVPB SCH
[2020-02-19] MEDS ORDERED: Sodium Chloride 0.9% 20 ML ONE (09:28)
[2020-02-19 09:56] VITALS: BP 164/79; TEMP 98.1
[2020-02-19] MEDS ORDERED: SODIUM CHLORIDE 0.9% IVPB SCH (10:30)
[2020-02-19] MEDS ORDERED: BEVACIZUMAB IVPB SCH (10:30)
== END 2020-02-19 15:28 | disposition home or self-care (01) ==
LOC: ONC/OP 09:12 → MERGE 09:12 → ONC/OP 15:28
PROVIDERS: ATTEND Internal Medicine Hematology & Oncology
DX: Z51.11 Encounter for antineoplastic chemotherapy (principal); C18.2 Malignant neoplasm of ascending colon
CPT/HCPCS: 96367; 96375; 96413; 96415; 96417; J0640; J1100; J2469; J3490; J7070; J9035; J9190; J9263

== ENCOUNTER 2020-02-22 12:00 | Day surgery (SDC) | payer MEDICARE ==
[~2020-02-22 12:00] MED LIST changes: -BEVACIZUMAB AWWB IVPB SCH; -DEXTROSE 5% IVPB SCH; -FLUOROURACIL IVPB SCH; -Leucovorin Calcium 350 MG, Leucovorin Calcium 50 MG in Dextrose 5% in Water 50 ML IVPB SCH; -OXALIPLATIN IVPB SCH; +PEGFILGRASTIM-JMDB 6 MG/0.6 ML SYRINGE SQ SCH; -Palonosetron HCl 0.25 MG in Sodium Chloride 0.9% 50 ML IVPB SCH; -SODIUM CHLORIDE 0.9% IVPB SCH; -WATER IVPB SCH
[2020-02-22 12:20] VITALS: BP 145/88; TEMP 98.2
== END 2020-02-22 12:19 | disposition home or self-care (01) ==
LOC: ONC/OP 12:00 → MERGE 13:00
PROVIDERS: ATTEND Internal Medicine Hematology & Oncology
DX: Z51.11 Encounter for antineoplastic chemotherapy (principal); C18.2 Malignant neoplasm of ascending colon
CPT/HCPCS: 96372; Q5108

== ENCOUNTER 2020-03-04 14:56 | Outpatient (CLI) | payer MEDICARE, OTHER ==
[2020-03-05 10:59] LABS: SARS-CoV-2 MS2 Positive; SARS-CoV-2 N Gene Negative; SARS-CoV-2 S Gene Negative; SARS-CoV-2 orf1ab Negative
== END 2020-03-04 14:57 | disposition home or self-care (01) ==
LOC: LABBT 14:56
PROVIDERS: ATTEND Thoracic Surgery (Cardiothoracic Vascular Surgery)
DX: Z01.812 Encounter for preprocedural laboratory examination (principal); Z11.59 Encounter for screening for other viral diseases
CPT/HCPCS: 87635; U0003

== ENCOUNTER 2020-03-07 06:03 | Day surgery (SDC) | payer MEDICARE ==
[2020-03-04 15:34] VITALS: BMI 27.0
[2020-03-07] MEDS ORDERED: EPINEPHrine 1 MG/ML AMP ONE (06:30)
[2020-03-07] MEDS ORDERED: Bupivacaine PF 0.5% 30 ML VIAL ONE (06:30)
[2020-03-07] MEDS ORDERED: Midazolam HCl 2 mg/2 ml Vial ONE (06:35)
[2020-03-07] MEDS ORDERED: Fentanyl 100 MCG/2 ML VIAL ONE (06:35)
--- NOTE | 2020-03-07 08:24 | OP ---
DATE OF PROCEDURE: 03/07/2020 PREOPERATIVE DIAGNOSIS: End of life of the right PleurX catheter. POSTOPERATIVE DIAGNOSIS: End of life of the right PleurX catheter. PROCEDURE PERFORMED: Removal of right PleurX catheter. ANESTHESIA: 1% lidocaine for local with IV sedation provided by Dr. Sherwin Miranda. DESCRIPTION OF PROCEDURE: After consent was obtained, the patient was brought to the operating room and placed in supine position on the operating table. Appropriate central line and monitors were placed. IV sedation was begun. Right chest wall was prepped and draped in usual sterile fashion. The chest wall was infiltrated with 1% lidocaine. Sharp dissection was used to dissect the cuff and the catheter removed. The wound was then closed with two 3-0 Vicryl sutures. Sterile dressing was applied. The patient was transferred to the Day Stay area and then home. Job ID: [id number]
[2020-03-07] MEDS ORDERED: PROPOFOL 200 MG/20 ML VIAL ONE (15:14)
== END 2020-03-07 08:38 | disposition home or self-care (01) ==
LOC: SDC 06:03
PROVIDERS: ATTEND Thoracic Surgery (Cardiothoracic Vascular Surgery)
PROC: 0WP903Z Removal of Infusion Device from Right Pleural Cavity, Open Approach (ICD-10-PCS; principal; 2020-03-07)
DX: Z46.82 Encounter for fitting and adjustment of non-vascular catheter (principal); C80.1 Malignant (primary) neoplasm, unspecified; J91.0 Malignant pleural effusion; E78.5 Hyperlipidemia, unspecified; I10 Essential (primary) hypertension; E10.9 Type 1 diabetes mellitus without complications; N40.0 Benign prostatic hyperplasia without lower urinary tract symptoms; I48.91 Unspecified atrial fibrillation; J44.9 Chronic obstructive pulmonary disease, unspecified; Z87.891 Personal history of nicotine dependence; Z79.01 Long term (current) use of anticoagulants; Z79.899 Other long term (current) drug therapy; Z90.49 Acquired absence of other specified parts of digestive tract
CPT/HCPCS: J0171; J0690; J2250; J2704; J3010; S0020

== ENCOUNTER 2020-03-12 07:50 | Day surgery (SDC) | payer MEDICARE ==
[~2020-03-12 07:50] MED LIST changes: +BEVACIZUMAB AWWB IVPB SCH; +DEXTROSE 5% IVPB SCH; +FLUOROURACIL IVPB SCH; +Leucovorin Calcium 350 MG, Leucovorin Calcium 50 MG in Dextrose 5% in Water 50 ML IVPB SCH; -PEGFILGRASTIM-JMDB 6 MG/0.6 ML SYRINGE SQ SCH; +Palonosetron HCl 0.25 MG in Sodium Chloride 0.9% 50 ML IVPB SCH; +SODIUM CHLORIDE 0.9% IVPB SCH; +WATER IVPB SCH
[2020-03-12] MEDS ORDERED: Sodium Chloride 0.9% 20 ML ONE (09:13)
[2020-03-12 09:26] VITALS: BP 187/94; TEMP 97.9
== END 2020-03-12 14:20 | disposition home or self-care (01) ==
LOC: ONC/OP 07:50
PROVIDERS: ATTEND Internal Medicine Hematology & Oncology
DX: Z51.11 Encounter for antineoplastic chemotherapy (principal); C18.2 Malignant neoplasm of ascending colon
CPT/HCPCS: 96367; 96375; 96413; 96415; 96417; J0640; J1100; J2469; J3490; J7070; J9190; J9263; Q5107

== ENCOUNTER 2020-03-26 08:39 | Day surgery (SDC) | payer MEDICARE ==
[2020-03-26] MEDS ORDERED: Sodium Chloride 0.9% 20 ML ONE (08:44)
[2020-03-26 10:47] VITALS: BP 185/90; TEMP 98
== END 2020-03-26 14:28 | disposition home or self-care (01) ==
LOC: ONC/OP 08:39
PROVIDERS: ATTEND Internal Medicine Hematology & Oncology
DX: Z51.11 Encounter for antineoplastic chemotherapy (principal); C18.2 Malignant neoplasm of ascending colon
CPT/HCPCS: 96367; 96375; 96413; 96415; 96417; J0640; J1100; J2469; J3490; J7070; J9190; J9263; Q5107

== ENCOUNTER → 2020-03-29 | Day surgery (SDC) | payer MEDICARE ==
[~2020-03-29] MED LIST changes: -BEVACIZUMAB AWWB IVPB SCH; -DEXTROSE 5% IVPB SCH; -FLUOROURACIL IVPB SCH; -Leucovorin Calcium 350 MG, Leucovorin Calcium 50 MG in Dextrose 5% in Water 50 ML IVPB SCH; +PEGFILGRASTIM-JMDB 6 MG/0.6 ML SYRINGE SQ SCH; -Palonosetron HCl 0.25 MG in Sodium Chloride 0.9% 50 ML IVPB SCH; -SODIUM CHLORIDE 0.9% IVPB SCH; -WATER IVPB SCH
== END ==
LOC: ONC/OP 10:23
PROVIDERS: ATTEND Internal Medicine Hematology & Oncology
DX: C18.2 Malignant neoplasm of ascending colon (principal)

== ENCOUNTER 2020-04-09 08:54 | Day surgery (SDC) | payer MEDICARE ==
[~2020-04-09 08:54] MED LIST changes: +BEVACIZUMAB AWWB IVPB SCH; +DEXTROSE 5% IVPB SCH; +FLUOROURACIL IVPB SCH; +Leucovorin Calcium 350 MG, Leucovorin Calcium 50 MG in Dextrose 5% in Water 50 ML IVPB SCH; -PEGFILGRASTIM-JMDB 6 MG/0.6 ML SYRINGE SQ SCH; +Palonosetron HCl 0.25 MG in Sodium Chloride 0.9% 50 ML IVPB SCH; +SODIUM CHLORIDE 0.9% IVPB SCH; +WATER IVPB SCH
[2020-04-09] MEDS ORDERED: Sodium Chloride 0.9% 20 ML ONE (09:01)
[2020-04-09 09:16] VITALS: BP 184/87; TEMP 98
== END 2020-04-09 13:05 | disposition home or self-care (01) ==
LOC: ONC/OP 08:54
PROVIDERS: ATTEND Internal Medicine Hematology & Oncology
DX: Z51.11 Encounter for antineoplastic chemotherapy (principal); C18.2 Malignant neoplasm of ascending colon
CPT/HCPCS: 96367; 96375; 96413; 96415; 96417; J0640; J1100; J2469; J3490; J7070; J9190; J9263; Q5107

== ENCOUNTER 2020-04-18 08:24 | Outpatient (CLI) | payer MEDICARE ==
--- NOTE | 2020-04-18 10:24 | CT ---
CHEST CT WITH CONTRAST ABDOMEN CT WITH CONTRAST PELVIC CT WITH CONTRAST: Date: 04/18/2020 HISTORY: Malignant neoplasm of ascending colon. Patient is currently undergoing chemotherapy. COMPARISON: None. CORRELATION: PET imaging dated 01/22/2020. FINDINGS: CHEST CT: Lower neck and axilla do not demonstrate any masses or lymphadenopathy. Heart: Mildly enlarged cardiac silhouette. Small amount of pericardial fluid. Calcification of aorti c valve and mitral annulus. Aorta: Minimal atherosclerosis. No aneurysm, dissection, or periaortic fat stranding. Trachea and central bronchi: Patent. Pleural spaces: Multiple pleural based masses/focal areas of fluid collection. Correlation made with previous PET imaging does comment upon multiple pleural based metastatic deposits. A artist representative metastatic deposit along the anterior right pleural margin measures 2.6 x 1.8 cm. Additional pleural based masses are noted along the left and right hemidiaphragm. Pneumothorax: None. Right lung: In addition to the pleural based masses, there do appear to be subcentimeter nodules. Left lung: There is a solid nodule in the left upper lobe measuring 0.6 x 0.5 cm. Additional lung pa renchymal nodules are noted. ABDOMEN CT: Patent portal vein. Gallbladder is normal. Abnormal attenuation involving the right hepatic lobe (segment ). This ill-defined area of hypoatte nuation measures 4.1 x 2.2 cm and corresponds to previously noted FDG avidity. There is also abnormal attenuation involving the right hepatic lobe (segment IV) measuring 2.7 x 1.1 cm. This also correspo nds to previously identified FDG avidity. Appropriate enhancement of the spleen, pancreas, and adrenal glands. 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 Bilaterally, no obstructive uropathy. There is stranding of the abdominal mesentery with fluid along both paracolic gutters, right greater than left. No mesenteric mass, free air, or lymphadenopathy. Gastric mucosa, duodenum, and multiple normal caliber small bowel loops. There is right hemicolectomy . No obstruction at the surgical anastomosis. The remainder of the colon appears to be unremarkable f or mucosal based pathology. PELVIC CT: Enlarged prostate gland. Urinary bladder mucosal prominence which may in part be due to bladder outlet obstruction and incompl ete urinary bladder distention. Correlate clinically. Cystoscopy if there is concern for bladder neop lasm. OSSEOUS STRUCTURES: No lytic or blastic lesions. IMPRESSION: 1. Redemonstration of multifocal lung parenchymal and pleural based metastatic deposits. 2. Right hepatic lobe malignancy as described above. 3. Right hemicolectomy. 4. 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 5. Urinary bladder mucosal prominence. Consider cystoscopy if there is concern for possible bladder neoplasm. Note, the degree of bladder mucosal prominence is unchanged from a stone CT dated 04/30/20 19. POS: [facility]
== END 2020-04-18 08:25 | disposition home or self-care (01) ==
LOC: SCSCT 08:24
PROVIDERS: ATTEND Internal Medicine Hematology & Oncology
DX: C18.2 Malignant neoplasm of ascending colon (principal); C78.7 Secondary malignant neoplasm of liver and intrahepatic bile duct; C78.00 Secondary malignant neoplasm of unspecified lung; Q63.1 Lobulated, fused and horseshoe kidney; Z90.49 Acquired absence of other specified parts of digestive tract
CPT/HCPCS: 71260; 74177

== ENCOUNTER 2020-04-22 09:08 | Day surgery (SDC) | payer MEDICARE ==
[2020-04-22] MEDS ORDERED: WATER IVPB SCH (09:30)
[2020-04-22] MEDS ORDERED: Leucovorin Calcium 350 MG, Leucovorin Calcium 50 MG in Dextrose 5% in Water 50 ML IVPB SCH (09:30)
[2020-04-22] MEDS ORDERED: Palonosetron HCl 0.25 MG in Sodium Chloride 0.9% 50 ML IVPB SCH (09:30)
[2020-04-22] MEDS ORDERED: SODIUM CHLORIDE 0.9% IV SCH (09:30)
[2020-04-22] MEDS ORDERED: DEXTROSE 5% IVPB SCH (09:30)
[2020-04-22] MEDS ORDERED: BEVACIZUMAB AWWB IV SCH (09:30)
[2020-04-22] MEDS ORDERED: FLUOROURACIL IVPB SCH (09:30)
[2020-04-22] MEDS ORDERED: Sodium Chloride 0.9% 20 ML ONE (09:31)
[2020-04-22 09:55] VITALS: BP 184/91; TEMP 98.7
== END 2020-04-22 14:13 | disposition home or self-care (01) ==
LOC: ONC/OP 09:08
PROVIDERS: ATTEND Internal Medicine Hematology & Oncology
DX: Z51.11 Encounter for antineoplastic chemotherapy (principal); C18.2 Malignant neoplasm of ascending colon; C78.01 Secondary malignant neoplasm of right lung; C78.02 Secondary malignant neoplasm of left lung; C79.51 Secondary malignant neoplasm of bone; E11.9 Type 2 diabetes mellitus without complications; I10 Essential (primary) hypertension; E78.5 Hyperlipidemia, unspecified; J44.9 Chronic obstructive pulmonary disease, unspecified; Z79.4 Long term (current) use of insulin; Z79.82 Long term (current) use of aspirin; Z79.899 Other long term (current) drug therapy
CPT/HCPCS: 96367; 96375; 96413; 96415; 96417; J0640; J1100; J2469; J3490; J7070; J9190; J9263; Q5107

== ENCOUNTER 2020-04-25 09:28 | Day surgery (SDC) | payer MEDICARE ==
[~2020-04-25 09:28] MED LIST changes: -BEVACIZUMAB AWWB IVPB SCH; -DEXTROSE 5% IVPB SCH; -FLUOROURACIL IVPB SCH; -Leucovorin Calcium 350 MG, Leucovorin Calcium 50 MG in Dextrose 5% in Water 50 ML IVPB SCH; +PEGFILGRASTIM-JMDB 6 MG/0.6 ML SYRINGE SQ SCH; -Palonosetron HCl 0.25 MG in Sodium Chloride 0.9% 50 ML IVPB SCH; -SODIUM CHLORIDE 0.9% IVPB SCH; -WATER IVPB SCH
[2020-04-25 09:48] VITALS: BP 186/89; TEMP 98
== END 2020-04-25 09:48 | disposition home or self-care (01) ==
LOC: ONC/OP 09:28
PROVIDERS: ATTEND Internal Medicine Hematology & Oncology
DX: C18.2 Malignant neoplasm of ascending colon (principal)
CPT/HCPCS: 96372; Q5108

== ENCOUNTER 2020-05-06 09:52 | Day surgery (SDC) | payer MEDICARE ==
[~2020-05-06 09:52] MED LIST changes: +BEVACIZUMAB AWWB IV SCH; +BEVACIZUMAB IVPB SCH; +DEXTROSE 5% IVPB SCH; +Dexamethasone 10 MG in Sodium Chloride 0.9% 50 ML IVPB SCH; +FLUOROURACIL IVPB SCH; +LEUCOVORIN CALCIUM IVPB SCH; +Leucovorin Calcium 350 MG, Leucovorin Calcium 50 MG in Dextrose 5% in Water 50 ML IVPB SCH; -PEGFILGRASTIM-JMDB 6 MG/0.6 ML SYRINGE SQ SCH; +Palonosetron HCl 0.25 MG in Sodium Chloride 0.9% 50 ML IVPB SCH; +SODIUM CHLORIDE 0.9% IV SCH; +SODIUM CHLORIDE 0.9% IVPB SCH; +WATER IVPB SCH
[2020-05-06] MEDS ORDERED: Sodium Chloride 0.9% 20 ML ONE (10:04)
[2020-05-06 10:05] VITALS: BP 180/84; TEMP 98.4
== END 2020-05-06 14:30 | disposition home or self-care (01) ==
LOC: ONC/OP 09:52
PROVIDERS: ATTEND Internal Medicine Hematology & Oncology
DX: Z51.11 Encounter for antineoplastic chemotherapy (principal); C18.2 Malignant neoplasm of ascending colon
CPT/HCPCS: 96375; 96413; 96415; 96416; 96417; J0640; J1100; J2469; J3490; J7070; J9190; J9263; Q5107

== ENCOUNTER 2020-05-09 10:24 | Day surgery (SDC) | payer MEDICARE ==
[~2020-05-09 10:24] MED LIST changes: -BEVACIZUMAB AWWB IV SCH; -BEVACIZUMAB IVPB SCH; -DEXTROSE 5% IVPB SCH; -Dexamethasone 10 MG in Sodium Chloride 0.9% 50 ML IVPB SCH; -FLUOROURACIL IVPB SCH; -LEUCOVORIN CALCIUM IVPB SCH; -Leucovorin Calcium 350 MG, Leucovorin Calcium 50 MG in Dextrose 5% in Water 50 ML IVPB SCH; +PEGFILGRASTIM-JMDB 6 MG/0.6 ML SYRINGE SQ SCH; -Palonosetron HCl 0.25 MG in Sodium Chloride 0.9% 50 ML IVPB SCH; -SODIUM CHLORIDE 0.9% IV SCH; -SODIUM CHLORIDE 0.9% IVPB SCH; -WATER IVPB SCH
[2020-05-09 10:30] VITALS: BP 156/71; TEMP 98
== END 2020-05-09 10:38 | disposition home or self-care (01) ==
LOC: ONC/OP 10:24
PROVIDERS: ATTEND Internal Medicine Hematology & Oncology
DX: C18.2 Malignant neoplasm of ascending colon (principal)
CPT/HCPCS: 96372; Q5108

== ENCOUNTER 2020-06-06 09:29 | Day surgery (SDC) | payer MEDICARE | END 2020-06-06 09:58 | disposition home or self-care (01) | LOC: ONC/OP 09:29 | PROVIDERS: ATTEND Internal Medicine Hematology & Oncology | DX: C18.2 Malignant neoplasm of ascending colon (principal) | CPT/HCPCS: 96372; Q5108 ==

== ENCOUNTER 2020-06-08 19:46 | Inpatient (IN) | payer MEDICARE, OTHER ==
[~2020-06-08 19:46] MED LIST changes: +Iopamidol-370 76% 500 ML 1 ML ONE; -PEGFILGRASTIM-JMDB 6 MG/0.6 ML SYRINGE SQ SCH
[2020-06-08 20:23] LABS: Hemoglobin 11.2 g/dL (14.0-18.0); Mean Corpuscular HGB CONC 32.3 g/dL (32.0-36.0); Mean Corpuscular Hemoglobin 31.6 pg (27.0-31.0); Mean Platelet Volume 10.9 fL (7.4-10.4); Platelet Count 88 thou/uL (130-400); RBC Distribution Width 15.9 % (11.5-14.5); Red Blood Cell (RBC) Count 3.53 mill/uL (4.70-6.10); White Blood Cell (WBC) Count 36.6 thou/uL (4.8-10.8)
--- NOTE | 2020-06-08 20:30 | RAD ---
PORTABLE CHEST: Date: 06-08-2020 PROVIDED CLINICAL HISTORY: Shortness of breath FINDINGS: Comparison 02-28-2020. Cardiac and mediastinal silhouette is unchanged in appearance. Right sided implanted port is again no albin in similar position. There is stable blunting of the right costophrenic angle. Prominence of the pulmonary interstitium without margarito consolidation or pneumothorax apparent. IMPRESSION: Stable radiographic appearance of the chest. POS: [facility]
[2020-06-08 20:37] LABS: Band 10 % (5-11); Lymphocytes 2 % (21-51); MDiff Complete? YES; Neutrophil 88 % (42-75); Platelet Morphology Comment Appears Decreased; RBC Morphology Normal; Toxic Granulation SLIGHT; Vacuoles SLIGHT
[2020-06-08 20:41] LABS: ALT (SGPT) 9 U/L (8-55); AST (SGOT) 26 U/L (5-34); Albumin 3.2 g/dL (3.4-4.8); Alkaline Phosphatase 286 U/L (40-110); Anion Gap 18 mmol/L (10-20); BUN (Urea Nitrogen) 24 mg/dL (8.4-25.7); Bilirubin, Total 1.1 mg/dL (0.2-1.2); Calc. Creatinine Clearance 0 mL/min (70-130); Calcium 8.6 mg/dL (7.8-10.44); Carbon Dioxide 25 mmol/L (23-31); Chloride 98 mmol/L (98-107); Estimated GFR-MDRD 60; Globulin 3.4 g/dL (2.4-3.5); Glucose 181 mg/dL (83-110); Potassium 3.3 mmol/L (3.5-5.1); Protein, Total 6.6 g/dL (5.8-8.1); Sodium 138 mmol/L (136-145)
[2020-06-08] MEDS ORDERED: Piperacillin/Tazobactam 4.5 GM VIAL ONE (21:23)
[2020-06-08] MEDS ORDERED: Vancomycin 1.5 GRAM/300 ML BAG 1.5 GM in Premix Bag 1 BAG IVPB SCH (21:30)
--- NOTE | 2020-06-08 21:36 | CT ---
CT PULMONARY ANGIOGRAM: Date: 06-08-2020 PROVIDED CLINICAL HISTORY: Dyspnea FINDINGS: Comparison is made with the CT chest dated 04-18-2020. There is no evidence for central or segmental pulmonary embolus. Numerous pleural based masses are demonstrated. Interval development of bibasilar lung consolidation as well as patchy ground glass opacity within th e lateral aspect of the right upper lobe. Persistent right pleural fluid, appearing slightly more con spicuous than on prior. There is no evidence for pneumothorax. The airway appears patent and of normal caliber. The osseous s tructures demonstrate no evidence for concerning lytic or blastic lesion. IMPRESSION: 1. No evidence for central or segmental pulmonary embolus. 2. Bibasilar lung consolidation and right upper lobe ground glass opacity, compatible with pneumonia. 3. Examination appears otherwise similar to 04-18-2020. POS: [facility]
[2020-06-08] MEDS ORDERED: Ondansetron PF 4 MG/2 ML Vial IVP PRN (22:44)
[2020-06-08] MEDS ORDERED: Ondansetron ODT 4 MG TAB PO PRN (22:44)
[2020-06-08] MEDS ORDERED: Acetaminophen 650 MG Suppository PR PRN (22:44)
[2020-06-08] MEDS ORDERED: Calcium Carbonate 500 MG ChewTAB PO PRN (22:44)
[2020-06-08] MEDS ORDERED: Guaifenesin DM 100-10/5 ML UDCUP PO PRN (22:44)
[2020-06-08] MEDS ORDERED: Acetaminophen 325 MG TAB PO PRN (22:44)
--- NOTE | 2020-06-08 22:53 | PDOC.HHP ---
Hospitalist HPI - History of Present Illness SOB History of Present Illness: Case of an 79 yo male with PMHx of metastatic colon cancer, htn, hypercholesterolemia diabetes and atrial fibrillation who comes to hospital due to sob. patient refers he was on his usual state of health until around 1week ago when he started witg general malaise and weaknes, then 2-3 days ago he started with dyspnea. he refers dyspnea has been worsening everyday, its associated with productive cough with yellow sputum and back pain. patient is currently being treated for metastatic mass in the right lung. He was schedule for an appointment with Dr. Treviño his oncologist tomorrow. Patient had a right pleural effusion back in December 2019 and had a drain placed at that time, patient says this was pulled a couple months ago. He has been on chemo for about 6 months. denies any fever chills dysuria or diarrhea, does complains of constipation Hospitalist ROS - Review of Systems All other systems reviewed; all pertinent +/- noted in HPI/Subj Hospitalist History - Past Medical History Renal/: reports: Benign prostatic enlarg. - Past Surgical History Past Surgical History: reports: Other (colectomy for CA) - Family History Family History: reports: diabetes mellitus, hypertension - Social History Alcohol: reports: None Drugs: reports: none - Exam General Appearance: NAD, awake alert Eye: PERRL, anicteric sclera ENT: normocephalic atraumatic, no oropharyngeal lesions Neck: supple, symmetric, no JVD, no thyromegaly Heart: no murmur, no gallops, irregular Respiratory: CTAB, no wheezes, no rales, no ronchi Gastrointestinal: soft, non-tender, non-distended, normal bowel sounds Extremities: no cyanosis, no clubbing, no edema Skin: normal turgor, no lesions, no rashes Neurological: cranial nerve grossly intact, normal sensation to touch Musculoskeletal: normal tone, normal strength, no muscle wasting Psychiatric: normal affect, normal behavior, A&O x 3 Hospitalist Results - Labs Result Diagrams: 06/08/20 20:05 06/08/20 20:05 Lab results: WBC 36.6 thou/uL (4.8-10.8) H 06/08/20 20:05 Hgb 11.2 g/dL (14.0-18.0) L 06/08/20 20:05 Hct 34.6 % (42.0-52.0) L 06/08/20 20:05 MCV 98.0 fL (78.0-98.0) 06/08/20 20:05 Plt Count 88 thou/uL (130-400) L 06/08/20 20:05 Band Neuts % (Manual) 10 % (5-11) 06/08/20 20:05 Sodium 138 mmol/L (136-145) 06/08/20 20:05 Potassium 3.3 mmol/L (3.5-5.1) L 06/08/20 20:05 Chloride 98 mmol/L (98-107) 06/08/20 20:05 Carbon Dioxide 25 mmol/L (23-31) 06/08/20 20:05 BUN 24 mg/dL (8.4-25.7) 06/08/20 20:05 Creatinine 1.17 mg/dL (0.7-1.3) 06/08/20 20:05 Glucose 181 mg/dL (83-110) H 06/08/20 20:05 Lactic Acid 2.5 mmol/L (0.5-2.2) H 06/08/20 20:05 Calcium 8.6 mg/dL (7.8-10.44) 06/08/20 20:05 Total Bilirubin 1.1 mg/dL (0.2-1.2) 06/08/20 20:05 AST 26 U/L (5-34) 06/08/20 20:05 ALT 9 U/L (8-55) 06/08/20 20:05 Alkaline Phosphatase 286 U/L (40-110) H 06/08/20 20:05 B-Natriuretic Peptide 110.5 pg/mL (0-100) H 06/08/20 20:05 Serum Total Protein 6.6 g/dL (5.8-8.1) 06/08/20 20:05 Albumin 3.2 g/dL (3.4-4.8) L 06/08/20 20:05 Hospitalist H&P A/P - Problem (1) Community acquired bacterial pneumonia Code(s): J15.9 - UNSPECIFIED BACTERIAL PNEUMONIA Status: Acute (2) Sepsis Code(s): A41.9 - SEPSIS, UNSPECIFIED ORGANISM Status: Acute (3) Afib Code(s): I48.91 - UNSPECIFIED ATRIAL FIBRILLATION Status: Acute (4) BPH (benign prostatic hyperplasia) Code(s): N40.0 - BENIGN PROSTATIC HYPERPLASIA WITHOUT LOWER URINRY TRACT SYMP Status: Acute (5) COPD (chronic obstructive pulmonary disease) Status: Acute (6) HLD (hyperlipidemia) Code(s): E78.5 - HYPERLIPIDEMIA, UNSPECIFIED Status: Acute (7) HTN (hypertension) Code(s): I10 - ESSENTIAL (PRIMARY) HYPERTENSION Status: Acute (8) IDDM (insulin dependent diabetes mellitus) Code(s): OEA1981 - Status: Acute (9) Colon cancer metastasized to lung Code(s): C18.9 - MALIGNANT NEOPLASM OF COLON, UNSPECIFIED; C78.00 - SECONDARY MALIGNANT NEOPLASM OF UNSPECIFIED LUNG Status: Acute - Plan Plan: Case of an 79y/o male with the stated pmhx who present with sepsis with pneumonia sepsis / pneumonia - wbc at 36, LA 3.[address] conerning for a bibasilar and r upper consolidation consistent with pneumonia - sepsis bundles were started with ivfs cultures and abx - on vanc + cefepime - f/u LA - continue ivfs - 02 supplementation - duo nebs - f/u cultures diabetes - ss + acc - long acting insulin - adjust as needed atrial fibrillation - continue rate control with beta rosas - continue AC w elliquis - telemetry monitoring htn - holding medication on the setting of sepsis, restart when more stable hld - continue statin colon ca with lung mets - oncology consulted
[2020-06-08] MEDS ORDERED: Dextrose 50% Abboject 50 ML SYRINGE SLOW IVP PRN (23:03)
[2020-06-08] MEDS ORDERED: Dextrose 5% in Water 1,000 ML IV PRN (23:03)
[2020-06-08 23:14] LABS: Lactic Acid 1.3 mmol/L (0.5-2.2)
[2020-06-08 23:40] VITALS: BMI 27.0
[2020-06-08] MEDS ORDERED: Cefepime 2 GM in Sodium Chloride 0.9% 100 ML IVPB SCH (23:59)
[2020-06-09] MEDS: Sodium Chloride 0.9% 1,000 ML IV SCH ×2 (01:01→17:56)
[2020-06-09 04:41] LABS: Hemoglobin 9.1 g/dL (14.0-18.0); Mean Corpuscular HGB CONC 31.8 g/dL (32.0-36.0); Mean Corpuscular Hemoglobin 31.1 pg (27.0-31.0); Mean Corpuscular Volume 97.8 fL (78.0-98.0); Mean Platelet Volume 10.9 fL (7.4-10.4); Platelet Count 67 thou/uL (130-400); RBC Distribution Width 15.5 % (11.5-14.5); Red Blood Cell (RBC) Count 2.91 mill/uL (4.70-6.10); White Blood Cell (WBC) Count 42.5 thou/uL (4.8-10.8)
[2020-06-09 04:59] LABS: Band 4 % (5-11); Dohle Bodies SLIGHT; Lymphocytes 1 % (21-51); MDiff Complete? YES; Monocytes 1 % (0-10); Neutrophil 94 % (42-75); Platelet Morphology Comment Appears Decreased; Toxic Granulation SLIGHT
[2020-06-09 05:05] LABS: ALT (SGPT) 7 U/L (8-55); AST (SGOT) 22 U/L (5-34); Albumin 2.7 g/dL (3.4-4.8); Alkaline Phosphatase 228 U/L (40-110); Anion Gap 13 mmol/L (10-20); BUN (Urea Nitrogen) 23 mg/dL (8.4-25.7); Bilirubin, Total 1.1 mg/dL (0.2-1.2); Calc. Creatinine Clearance 66 mL/min (70-130); Carbon Dioxide 27 mmol/L (23-31); Chloride 101 mmol/L (98-107); Estimated GFR-MDRD 65; Globulin 2.8 g/dL (2.4-3.5); Glucose 212 mg/dL (83-110); Potassium 3.1 mmol/L (3.5-5.1); Protein, Total 5.5 g/dL (5.8-8.1); Sodium 138 mmol/L (136-145)
[2020-06-09] MEDS: HumaLOG 300 UNITS/3 ML VIAL SC PRN ×2 (06:39→12:00)
[2020-06-09] MEDS: Cefepime 2 GM in Sodium Chloride 0.9% 100 ML IVPB SCH ×2 (08:46→21:02)
[2020-06-09] MEDS: Metoprolol Tartrate 50 MG TAB PO SCH ×2 (08:47→21:03)
[2020-06-09] MEDS: Atorvastatin Calcium 40 MG TAB PO SCH (08:47)
[2020-06-09] MEDS: Tamsulosin HCl 0.4 MG CAP PO SCH (08:47)
[2020-06-09] MEDS: Apixaban 2.5 MG TAB PO SCH ×2 (08:47→21:02)
--- NOTE | 2020-06-09 09:09 | PDOC.HOSPP ---
- Subjective Encounter Date: 06/09/20 Encounter Time: 09:09 Subjective: Patient was seen and examined in bed. He denies any cough or shortness of breath. Complains of intermittent lower abdominal pain which was not present at the time of my evaluation. There were no significant events overnight. - Objective Vital Signs & Weight: Vital Signs (12 hours) Temp Pulse Resp BP Pulse Ox 06/09/20 08:40 90 12 06/09/20 08:05 99 F 110 H 16 157/84 H 96 06/09/20 04:12 97.8 F 83 20 164/75 H 97 06/09/20 04:08 95 06/08/20 23:00 99.0 F 112 H 20 143/83 H 96 Weight Weight 184 lb 9.6 oz I&O: 06/08/20 06/09/20 06/10/20 06:59 06:59 06:59 Intake Total 1500 Output Total 100 Balance 1400 Result Diagrams: 06/12/20 07:25 06/12/20 07:25 Additional Labs: Accuchecks 06/09/20 06:42 POC Glucose 237 H Hospitalist ROS - Review of Systems Constitutional: reports: weakness. denies: fever, chills, sweats Respiratory: denies: cough, shortness of breath, SOB with excertion Cardiovascular: denies: chest pain, palpitations, paroxysmal noc. dyspnea Genitourinary: denies: dysuria, incontinence - Medication Medications: Active Medications Generic Name Dose Route Start Last Admin Trade Name Freq PRN Reason Stop Dose Admin Albuterol/Ipratropium 3 ml 06/09/20 01:00 06/09/20 08:40 Duoneb NEB 3 ml [id number] REHANA Administration Apixaban 2.5 mg 06/09/20 09:00 06/09/20 08:47 Eliquis PO 2.5 mg BID REHANA Administration Atorvastatin Calcium 40 mg 06/09/20 09:00 06/09/20 08:47 Lipitor PO 40 mg DAILY REHANA Administration Cefepime HCl 2 gm/ Sodium 100 mls @ 200 mls/hr 06/09/20 09:00 06/09/20 08:46 Chloride IVPB 100 mls Q12HR REHANA Administration Sodium Chloride 1,000 mls @ 50 mls/hr 06/08/20 23:00 06/09/20 01:01 Normal Saline 0.9% IV 1,000 mls .Q20H REHANA Administration Insulin Human Lispro 0 units 06/08/20 23:03 06/09/20 06:39 Humalog SC 3 unit .MILD SLIDING SCALE PRN Administration Mild Correctional Scale Metoprolol Tartrate 50 mg 06/09/20 09:00 06/09/20 08:47 Lopressor PO 50 mg BID REHANA Administration Tamsulosin HCl 0.4 mg 06/09/20 09:00 06/09/20 08:47 Flomax PO 0.4 mg DAILY REHANA Administration - Exam General Appearance: awake alert Eye: PERRL, anicteric sclera ENT: normocephalic atraumatic, no oropharyngeal lesions, moist mucosa Heart: negative: RRR, no murmur, no gallops, normal peripheral pulses Respiratory: normal chest expansion Respiratory - other findings: Reduced breath sounds bilaterally. Extremities: no cyanosis, no edema Hosp A/P - Plan 80-year-old male patient with a history of metastatic colon cancer, diabetes mellitus and A. fib admitted on account of sepsis secondary to bibasilar pneumonia. Community-acquired pneumonia. Patient has been on vancomycin and cefepime Leukocytosis is worsening from 36.6-42.5 We will continue antibiotics with doxycline for atypical coverage Continue monitoring. Sepsis Likely secondary to pneumonia Continue on antibiotics Blood cultures negative so far A. fib Continue apixaban Diabetes mellitus Continue glargine 20 units daily and mild correctional scale Continue glucose monitoring. Hypertension Hold blood pressure medications for now. Colon cancer with lung metastasis Oncology consultedappreciate input DVT prophylaxistherapeutic apixaban
[2020-06-09 12:04] LABS: SARS-CoV-2 MS2 Positive; SARS-CoV-2 N Gene Negative; SARS-CoV-2 S Gene Negative; SARS-CoV-2 by NAA Not Detected (NotDetected); SARS-CoV-2 orf1ab Negative
[2020-06-09] MEDS ORDERED: HYDROcodone/Acetaminophen 10/325 mg Tablet PO PRN ×2 (14:57)
[2020-06-09] MEDS: Doxycycline Hyclate 100 MG, Admixture Fee 1 EACH in Sodium Chloride 0.9% 100 ML IVPB SCH (17:04)
[2020-06-09] MEDS ORDERED: Doxycycline 100 MG in Syringe 0 ML IVPB SCH (21:00)
[2020-06-09] MEDS: Insulin Glargine 20 UNITS in Pre-Filled Syringe 1 EACH SC SCH (21:03)
[2020-06-09] MEDS ORDERED: Insulin Regular 300 UNITS/3 ML VIAL SC PRN (21:17)
[2020-06-09] MEDS ORDERED: HumaLOG 300 UNITS/3 ML VIAL SC PRN (21:52)
[2020-06-09] MEDS ORDERED: Vancomycin HCl 1.25 GM in Sodium Chloride 0.9% 250 ML 250 ML IVPB SCH (22:00)
--- NOTE | 2020-06-09 22:23 | CON ---
DATE OF CONSULTATION: REASON FOR CONSULT: Colon cancer. HISTORY OF PRESENT ILLNESS: Mr. 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 He presented to the emergency room yesterday with weakness, shortness of breath, and cough. He underwent a CT angio of the chest and thorax, which was negative for pulmonary emboli, but showed new bibasilar lung consolidation and right upper lobe ground-glass opacities compatible with pneumonia. His pleural-based masses were stable compared to prior scan in April. The patient was admitted for pneumonia, started on IV antibiotics. Mr. Alvarez is on FOLFOX Avastin chemotherapy. He has completed 9 cycles. He does get Neulasta with treatment. His last cycle was Tuesday through , June 03 through . On admission , his white count was elevated at 36.6, his hemoglobin was stable at 11.2, and his platelet count was 88,000. He was COVID negative. He does complain of some abdominal discomfort. He has had 2 bouts of loose stool today. He is saturating well on O2 per nasal cannula. PAST MEDICAL HISTORY: 1. Metastatic colorectal carcinoma with pleural space and lung mets. 2. History of PleurX drain placement. 3. History of adenocarcinoma, status post right hemicolectomy in 2011. 4. Diabetes. 5. Hypertension. 6. Hyperlipidemia. 7. COPD. 8. Peptic ulcer disease. 9. Questionable history of hepatitis. PAST SURGICAL HISTORY: 1. Right hemicolectomy. 2. MediPort placement. 3. Right knee arthroscopy. 4. Left eye surgery. 5. Shoulder surgery. 6. History of ulcer surgery in 1994. ALLERGIES: NO KNOWN DRUG ALLERGIES. HOME MEDICATIONS: 1. Aspirin 325. 2. Coreg 6.25. 3. Doxazosin 2 mg daily. 4. Glipizide ER 10 mg daily. 5. Lantus p.r.n. 6. Metformin 1000 mg b.i.d. 7. Pravastatin 80 mg daily. 8. ProAir inhaler. 9. Singulair daily. 10. Hydrocodone 10/325 one to two q.6 hours p.r.n. 11. Zofran p.r.n. FAMILY HISTORY: Mother and father had colon cancer at advanced age. SOCIAL HISTORY: . Has 7 children. Former smoker. No alcohol, tobacco or illicit drug use. REVIEW OF SYSTEMS: 10-point review of systems is negative except for noted in HPI. PHYSICAL EXAMINATION: VITAL SIGNS: Temperature 98.5, pulse 97, respiratory rate 20, and blood pressure 134/71. He is 97% on room air. GENERAL: This is a well-developed, well-nourished male, in no acute distress. HEENT: Normocephalic and atraumatic. Pupils are equal and reactive to light. NECK: Supple. CV: Irregular rate and rhythm. LUNGS: Diminished throughout. ABDOMEN: Soft and nontender. EXTREMITIES: No clubbing or cyanosis. SKIN: No rash. NEUROLOGICAL: Nonfocal. PERTINENT LABORATORY DATA AND X-RAYS: Current WBCs are 42.5, hemoglobin 9.1, hematocrit 28.5, and platelet count 67,000. He has 94% neutrophils, 4% bands, 1 % lymphocytes. Sodium 138, potassium 3.1, chloride 101, CO2 is 27, BUN is 23, creatinine 1.09, lactic acid 1.3, and calcium 8. Bilirubin 1.1, AST 22, ALT 7, and alk phos 228. Serum total protein is 5.5, albumin 2.7, and globulin 2.8. COVID negative. Radiology per HPI. ASSESSMENT: 1. Metastatic colorectal carcinoma, on chemotherapy with Neulasta support, last dose last week. 2. Leukocytosis, likely secondary to Neulasta support. 3. New bibasilar and upper lobe consolidation consistent with pneumonia. 4. Atrial fibrillation. DISCUSSION: The patient's last dose of Neulasta was on . This timeframe will be consistent with his leukocytosis. He is on antibiotics and oxygen support and is feeling well. He is complaining of lower abdominal discomfort. We will add his [place] that he takes for back pain secondary to right iliac wing metastasis and abdominal discomfort. Case has been discussed with Dr. Treviño. We will continue to monitor his CBC and follow along with his hospitalization. Thank you for the consult. Job ID: [id number] MTDD
[2020-06-10] MEDS: Doxycycline Hyclate 100 MG, Admixture Fee 1 EACH in Sodium Chloride 0.9% 100 ML IVPB SCH ×2 (03:24→16:18)
[2020-06-10 04:19] LABS: Hemoglobin 9.5 g/dL (14.0-18.0); Platelet Count 57 thou/uL (130-400)
[2020-06-10] MEDS: Apixaban 2.5 MG TAB PO SCH ×2 (08:14→21:34)
[2020-06-10] MEDS: Atorvastatin Calcium 40 MG TAB PO SCH (08:15)
[2020-06-10] MEDS: Metoprolol Tartrate 50 MG TAB PO SCH ×2 (08:15→21:34)
[2020-06-10] MEDS: Cefepime 2 GM in Sodium Chloride 0.9% 100 ML IVPB SCH ×2 (08:15→21:34)
[2020-06-10] MEDS: Tamsulosin HCl 0.4 MG CAP PO SCH (08:16)
[2020-06-10 09:50] LABS: Hemoglobin 9.7 g/dL (14.0-18.0); Mean Corpuscular HGB CONC 32.5 g/dL (32.0-36.0); Mean Corpuscular Hemoglobin 31.9 pg (27.0-31.0); Mean Corpuscular Volume 98.3 fL (78.0-98.0); Mean Platelet Volume 11.2 fL (7.4-10.4); Platelet Count 54 thou/uL (130-400); RBC Distribution Width 15.5 % (11.5-14.5); Red Blood Cell (RBC) Count 3.05 mill/uL (4.70-6.10); White Blood Cell (WBC) Count 13.4 thou/uL (4.8-10.8)
[2020-06-10] MEDS ORDERED: Electrolyte Replacement Protoc 1 EACH EACH FS SCH (10:00)
[2020-06-10] MEDS ORDERED: Electrolyte Replacement Protocol FS PRN (10:00)
[2020-06-10 10:07] LABS: Anion Gap 16 mmol/L (10-20); BUN (Urea Nitrogen) 19 mg/dL (8.4-25.7); Calc. Creatinine Clearance 70 mL/min (70-130); Calcium 7.9 mg/dL (7.8-10.44); Carbon Dioxide 24 mmol/L (23-31); Chloride 103 mmol/L (98-107); Estimated GFR-MDRD 70; Glucose 141 mg/dL (83-110); Sodium 140 mmol/L (136-145)
[2020-06-10 10:13] LABS: Potassium 2.6 mmol/L (3.5-5.1)
[2020-06-10] MEDS ORDERED: Potassium Chloride 20 MEQ TAB PO SCH ×2 (10:15→15:00)
[2020-06-10 10:39] LABS: Band 12 % (5-11); Lymphocytes 1 % (21-51); MDiff Complete? YES; Monocytes 3 % (0-10); Neutrophil 82 % (42-75); Platelet Morphology Comment Appears Decreased; Polychromasia SLIGHT = 2-3 cells (100X) (0-2/hpf); Reactive Lymphocytes 1 % (0-10)
[2020-06-10] MEDS ORDERED: hydrALAZINE 20 MG/ML VIAL SLOW IVP PRN (10:43)
[2020-06-10] MEDS ORDERED: Magnesium 2 GM/50 ML 2 GM in Premix Bag 1 BAG IVPB SCH (11:30)
[2020-06-10] MEDS: Sodium Chloride 0.9% 1,000 ML IV SCH (13:35)
--- NOTE | 2020-06-10 14:52 | PDOC.MOPN ---
Interval History: feels better today. WBC dropped as expected. - Vital Signs Vital Signs: Vital Signs (12 hours) Temp Pulse Resp BP Pulse Ox 06/10/20 12:08 74 20 93 L 06/10/20 07:20 97.8 F 105 H 12 181/86 H 97 06/10/20 07:09 93 L 06/10/20 07:08 101 H 16 93 L 06/10/20 04:03 99 06/10/20 03:07 98.6 F 82 18 164/79 H 100 Weight Weight 184 lb 1.6 oz - Physical Exam General: Alert, Oriented x3, Cooperative, No acute distress HEENT: Atraumatic, PERRLA, EOMI, Mucous membr. moist/pink Lungs: Other (diminished) Cardiovascular: Regular rate, Normal S1, Normal S2, No murmurs, Gallops, Rubs Abdomen: Normal bowel sounds, Soft, No tenderness, No hepatospenomegaly, No masses Neurological: Normal speech - Labs Result Diagrams: 06/10/20 09:30 06/10/20 09:30 Lab results: Laboratory Results - last 24 hr 06/10/20 10:25: POC Glucose 147 H 06/10/20 09:30: Magnesium 1.6 06/10/20 09:30: WBC 13.4 H, RBC 3.05 L, Hgb 9.7 L, Hct 29.9 L, MCV 98.3 H, MCH 31.9 H, MCHC 32.5, RDW 15.5 H, Plt Count 54 L, MPV 11.2 H, Neutrophils % (Manual ) 82 H, Band Neuts % (Manual) 12 H, Lymphocytes % (Manual) 1 L, Reactive Lymphs % 1, Monocytes % (Manual) 3, Basophils % (Manual) 1, Lymphocytes # Not Reportable, Plt Morphology Comment Appears Decreased L, Polychromasia SLIGHT = 2 -3 cells 06/10/20 09:30: Sodium 140, Potassium 2.6 L*, Chloride 103, Carbon Dioxide 24, Anion Gap 16, BUN 19, Creatinine 1.03, Estimated GFR (MDRD) 70, Glucose 141 H, Calcium 7.9 06/10/20 05:00: POC Glucose 141 H 06/10/20 03:14: Hgb 9.5 L, Hct 28.5 L, Plt Count 57 L 06/10/20 03:14: Creatinine 1.02, Estimated GFR (MDRD) 71 06/09/20 20:17: POC Glucose 232 H Status: lab reviewed by me A/P - Problem (1) Colon cancer metastasized to lung Current Visit: Yes Code(s): C18.9 - MALIGNANT NEOPLASM OF COLON, UNSPECIFIED; C78.00 - SECONDARY MALIGNANT NEOPLASM OF UNSPECIFIED LUNG Status: Acute (2) Sepsis Current Visit: Yes Code(s): A41.9 - SEPSIS, UNSPECIFIED ORGANISM Status: Acute (3) Afib Current Visit: No Code(s): I48.91 - UNSPECIFIED ATRIAL FIBRILLATION Status: Acute - Plan Plan: 1. continue abx 2. pain controlled 3. hold chemo until improved, poss next week 4. CBC in am
--- NOTE | 2020-06-10 16:24 | PDOC.HOSPP ---
- Subjective Encounter Date: 06/10/20 Encounter Time: 10:00 Subjective: Patient was seen and examined in bed. He feels much better. He denies any pain or shortness of breath - Objective Vital Signs & Weight: Vital Signs (12 hours) Temp Pulse Resp BP Pulse Ox 06/10/20 12:15 98.2 F 87 20 160/82 H 97 06/10/20 12:08 74 20 93 L 06/10/20 07:20 97.8 F 105 H 12 181/86 H 97 06/10/20 07:09 93 L 06/10/20 07:08 101 H 16 93 L Weight Weight 184 lb 1.6 oz I&O: 06/09/20 06/10/20 06/11/20 06:59 06:59 06:59 Intake Total 1500 1220 Output Total 100 400 Balance 1400 820 Result Diagrams: 06/12/20 07:25 06/12/20 07:25 Additional Labs: Accuchecks 06/10/20 06/10/20 06/09/20 10:25 05:00 20:17 POC Glucose 147 H 141 H 232 H Hospitalist ROS - Review of Systems Constitutional: denies: fever, chills, weakness Respiratory: denies: cough, shortness of breath, SOB with excertion Cardiovascular: denies: chest pain, palpitations, orthopnea, paroxysmal noc. dyspnea Genitourinary: denies: dysuria, frequency Neurological: denies: weakness, confusion - Medication Medications: Active Medications Generic Name Dose Route Start Last Admin Trade Name Freq PRN Reason Stop Dose Admin Hydrocodone Bitart/Acetaminophen 2 tab 06/09/20 14:57 06/09/20 16:57 [place] 10/325 PO 2 tab Q6H PRN Administration Moderate to Severe Pain (6-10) Albuterol/Ipratropium 3 ml 06/09/20 01:00 06/10/20 12:08 Duoneb NEB 3 ml [id number] REHANA Administration Apixaban 2.5 mg 06/09/20 09:00 06/10/20 08:14 Eliquis PO 2.5 mg BID REHANA Administration Atorvastatin Calcium 40 mg 06/09/20 09:00 06/10/20 08:15 Lipitor PO 40 mg DAILY REHANA Administration Cefepime HCl 2 gm/ Sodium 100 mls @ 200 mls/hr 06/09/20 09:00 06/10/20 08:15 Chloride IVPB 100 mls Q12HR REHANA Administration Sodium Chloride 1,000 mls @ 50 mls/hr 06/08/20 23:00 06/10/20 13:35 Normal Saline 0.9% IV 1,000 mls .Q20H REHANA Administration Insulin Glargine 20 units/ 0.2 mls @ 0 mls/hr 06/09/20 21:00 06/09/20 21:03 Miscellaneous Medication SC 0.2 mls HS REHANA Administration Doxycycline Hyclate 100 mg/ 100 mls @ 100 mls/hr 06/09/20 16:00 06/10/20 16: 18 Miscellaneous Medication 1 IVPB 100 mls each/ Sodium Chloride 0400,1600 REHANA Administration Insulin Human Lispro 0 units 06/08/20 23:03 06/09/20 12:00 Humalog SC 3 unit .MILD SLIDING SCALE PRN Administration Mild Correctional Scale Insulin Human Lispro 0 units 06/09/20 21:52 06/09/20 21:55 Humalog SC 2 unit .BEDTIME SLIDING SC PRN Administration Bedtime Correctional Scale Metoprolol Tartrate 50 mg 06/09/20 09:00 06/10/20 08:15 Lopressor PO 50 mg BID REHANA Administration Ondansetron HCl 4 mg 06/08/20 22:44 06/09/20 17:56 Zofran IVP 4 mg Q6H PRN Administration Nausea/Vomiting Potassium Chloride 40 meq 06/10/20 15:00 06/10/20 15:51 K-Dur PO 06/10/20 17:00 40 meq 1500 REHANA Administration Tamsulosin HCl 0.4 mg 06/09/20 09:00 06/10/20 08:16 Flomax PO 0.4 mg DAILY REHANA Administration - Exam General - other findings: Patient is awake and alert. Not ill looking. Heart: RRR, no murmur, no gallops, no rubs Respiratory: no wheezes, no rales, no ronchi, normal chest expansion Gastrointestinal: soft, non-tender, non-distended, normal bowel sounds Hosp A/P - Plan 80-year-old male patient with a history of metastatic colon cancer, diabetes mellitus and A. fib admitted on account of sepsis secondary to bibasilar pneumonia. Community-acquired pneumonia. Patient feels somewhat better. White blood cells decreasing consistent with doxycycline. We will DC vancomycin and continue cefepime and doxycycline for now Continue monitoring. Sepsis Likely secondary to pneumonia Continue on antibiotics Blood cultures negative so far A. fib Continue apixaban Diabetes mellitus Continue glargine 20 units daily and mild correctional scale Continue glucose monitoring. Hypertension Hold blood pressure medications for now. Colon cancer with lung metastasis Oncology consultedappreciate input DVT prophylaxistherapeutic on apixaban Dispositionfor possible discharge in a.m. .
[2020-06-10] MEDS: HumaLOG 300 UNITS/3 ML VIAL SC PRN (18:03)
[2020-06-10 20:35] LABS: Potassium 2.9 mmol/L (3.5-5.1)
[2020-06-10] MEDS: Insulin Glargine 20 UNITS in Pre-Filled Syringe 1 EACH SC SCH (21:34)
[2020-06-10] MEDS: Potassium Chloride 20 MEQ TAB PO SCH (21:46)
[2020-06-11] MEDS: Potassium Chloride 20 MEQ TAB PO SCH (02:55)
[2020-06-11] MEDS: Doxycycline Hyclate 100 MG, Admixture Fee 1 EACH in Sodium Chloride 0.9% 100 ML IVPB SCH ×2 (03:01→15:33)
[2020-06-11 05:03] LABS: Anion Gap 14 mmol/L (10-20); BUN (Urea Nitrogen) 16 mg/dL (8.4-25.7); Calc. Creatinine Clearance 77 mL/min (70-130); Calcium 7.9 mg/dL (7.8-10.44); Carbon Dioxide 19 mmol/L (23-31); Chloride 107 mmol/L (98-107); Estimated GFR-MDRD 78; Magnesium 1.8 mg/dL (1.6-2.6); Potassium 3.4 mmol/L (3.5-5.1); Sodium 137 mmol/L (136-145)
[2020-06-11 05:07] LABS: Glucose 57 mg/dL (83-110)
[2020-06-11] MEDS ORDERED: Magnesium 2 GM/50 ML 2 GM in Premix Bag 1 BAG IVPB SCH (05:15)
[2020-06-11] MEDS ORDERED: Potassium Chloride 20 MEQ TAB PO SCH ×3 (05:15→10:45)
[2020-06-11 05:28] LABS: Band 17 % (5-11); Hemoglobin 9.6 g/dL (14.0-18.0); Lymphocytes 3 % (21-51); MDiff Complete? YES; Mean Corpuscular HGB CONC 32.6 g/dL (32.0-36.0); Mean Corpuscular Hemoglobin 31.5 pg (27.0-31.0); Mean Corpuscular Volume 96.6 fL (78.0-98.0); Mean Platelet Volume 11.5 fL (7.4-10.4); Monocytes 5 % (0-10); Neutrophil 75 % (42-75); Platelet Count 66 thou/uL (130-400); Platelet Morphology Comment Appears Decreased; RBC Distribution Width 15.8 % (11.5-14.5); Red Blood Cell (RBC) Count 3.04 mill/uL (4.70-6.10); White Blood Cell (WBC) Count 18.7 thou/uL (4.8-10.8)
[2020-06-11] MEDS: Atorvastatin Calcium 40 MG TAB PO SCH (10:03)
[2020-06-11] MEDS: Cefepime 2 GM in Sodium Chloride 0.9% 100 ML IVPB SCH ×2 (10:03→20:18)
[2020-06-11] MEDS: Apixaban 2.5 MG TAB PO SCH ×2 (10:04→20:18)
[2020-06-11] MEDS: Metoprolol Tartrate 50 MG TAB PO SCH ×2 (10:04→20:18)
[2020-06-11] MEDS: Tamsulosin HCl 0.4 MG CAP PO SCH (10:04)
[2020-06-11 10:22] LABS: Potassium 3.3 mmol/L (3.5-5.1)
[2020-06-11] MEDS: Sodium Chloride 0.9% 1,000 ML IV SCH (18:08)
[2020-06-11] MEDS ORDERED: Insulin Glargine 10 UNITS in Pre-Filled Syringe 1 EACH SC SCH (21:00)
--- NOTE | 2020-06-11 21:34 | PDOC.HOSPP ---
- Subjective Encounter Date: 06/11/20 Encounter Time: 10:00 Subjective: When examined in bed. Mild cough otherwise in any shortness of breath or weakness. He had hypoglycemia in the morning to about 46 and this has been corrected. His nurse notes she has been a bit shaky in the morning. - Objective Vital Signs & Weight: Vital Signs (12 hours) Temp Pulse Resp BP BP BP Pulse Ox 06/11/20 19:31 98 16 97 06/11/20 15:39 98.2 F 85 18 145/90 H 99 06/11/20 13:45 108 H 16 98 06/11/20 13:20 98.4 F 100 20 133/63 99 06/11/20 13:19 178/80 H 178/80 H 06/11/20 11:58 97.4 F L 100 20 163/81 H 98 Pulse Ox 06/11/20 19:31 06/11/20 15:39 06/11/20 13:45 06/11/20 13:20 06/11/20 13:19 96 06/11/20 11:58 Weight Weight 185 lb 3.2 oz I&O: 06/10/20 06/11/20 06/12/20 06:59 06:59 06:59 Intake Total 1220 1800 1900 Output Total 400 400 250 Balance 820 1400 1650 Result Diagrams: 06/12/20 07:25 06/12/20 07:25 Additional Labs: Accuchecks 06/11/20 06/11/20 06/11/20 20:49 16:41 11:01 POC Glucose 152 H 148 H 150 H 06/11/20 05:58 POC Glucose 94 Hospitalist ROS - Medication Medications: Active Medications Generic Name Dose Route Start Last Admin Trade Name Freq PRN Reason Stop Dose Admin Hydrocodone Bitart/Acetaminophen 2 tab 06/09/20 14:57 06/09/20 16:57 [place] 10/325 PO 2 tab Q6H PRN Administration Moderate to Severe Pain (6-10) Albuterol/Ipratropium 3 ml 06/09/20 01:00 06/11/20 19:31 Duoneb NEB 3 ml [id number] REHANA Administration Apixaban 2.5 mg 06/09/20 09:00 06/11/20 20:18 Eliquis PO 2.5 mg BID REHANA Administration Atorvastatin Calcium 40 mg 06/09/20 09:00 06/11/20 10:03 Lipitor PO 40 mg DAILY REHANA Administration Cefepime HCl 2 gm/ Sodium 100 mls @ 200 mls/hr 06/09/20 09:00 06/11/20 20:18 Chloride IVPB 100 mls Q12HR REHANA Administration Sodium Chloride 1,000 mls @ 50 mls/hr 06/08/20 23:00 06/11/20 18:08 Normal Saline 0.9% IV 1,000 mls .Q20H REHANA Administration Doxycycline Hyclate 100 mg/ 100 mls @ 100 mls/hr 06/09/20 16:00 06/11/20 15: 33 Miscellaneous Medication 1 IVPB 100 mls each/ Sodium Chloride 0400,1600 REHANA Administration Insulin Glargine 10 units/ 0.1 mls @ 0 mls/hr 06/11/20 21:00 06/11/20 20:45 Miscellaneous Medication SC 0.1 mls HS REHANA Administration As Directed Insulin Human Lispro 0 units 06/08/20 23:03 06/10/20 18:03 Humalog SC 2 unit .MILD SLIDING SCALE PRN Administration Mild Correctional Scale Insulin Human Lispro 0 units 06/09/20 21:52 06/09/20 21:55 Humalog SC 2 unit .BEDTIME SLIDING SC PRN Administration Bedtime Correctional Scale Metoprolol Tartrate 50 mg 06/09/20 09:00 06/11/20 20:18 Lopressor PO 50 mg BID REHANA Administration Ondansetron HCl 4 mg 06/08/20 22:44 06/09/20 17:56 Zofran IVP 4 mg Q6H PRN Administration Nausea/Vomiting Tamsulosin HCl 0.4 mg 06/09/20 09:00 06/11/20 10:04 Flomax PO 0.4 mg DAILY REHANA Administration - Exam Eye: PERRL, anicteric sclera ENT: normocephalic atraumatic, moist mucosa Heart: RRR, no murmur, no rubs, normal peripheral pulses Respiratory: no wheezes, no rales, no ronchi, normal chest expansion Gastrointestinal: soft, non-tender, non-distended, normal bowel sounds Neurological - other findings: No focal deficits. Her hands are tremulous Hosp A/P - Plan 80-year-old male patient with a history of metastatic colon cancer, diabetes mellitus and A. fib admitted on account of sepsis secondary to bibasilar pneumonia. He has made significant improvement however a slight bump in his WBC this morning. Examination is generally unchanged and is making good clinical progress. He however has been slightly tremulous and weaker today We will have PT evaluate and observe 1 more day and discharge tomorrow if he remains stable. Community-acquired pneumonia. Patient feels somewhat better. White blood cells decreasing consistent with doxycycline. continue cefepime and doxycycline for now Continue monitoring. Possible discharge in the morning Sepsis Likely secondary to pneumonia Continue on antibiotics Blood cultures negative so far A. fib Continue apixaban Diabetes mellitus Continue glargine 20 units daily and mild correctional scale Continue glucose monitoring. Hypertension Hold blood pressure medications for now. Colon cancer with lung metastasis Oncology consultedappreciate input DVT prophylaxistherapeutic on apixaban Dispositionfor possible discharge in a.m.
[2020-06-12 04:47] LABS: Hemoglobin 9.1 g/dL (14.0-18.0); Platelet Count 62 thou/uL (130-400)
[2020-06-12] MEDS: Doxycycline Hyclate 100 MG, Admixture Fee 1 EACH in Sodium Chloride 0.9% 100 ML IVPB SCH (05:43)
[2020-06-12 07:42] LABS: Hemoglobin 9.8 g/dL (14.0-18.0); Mean Corpuscular HGB CONC 33.2 g/dL (32.0-36.0); Mean Corpuscular Hemoglobin 32.6 pg (27.0-31.0); Mean Corpuscular Volume 98.1 fL (78.0-98.0); Mean Platelet Volume 10.8 fL (7.4-10.4); Platelet Count 64 thou/uL (130-400); RBC Distribution Width 15.9 % (11.5-14.5); Red Blood Cell (RBC) Count 2.99 mill/uL (4.70-6.10)
[2020-06-12 07:58] LABS: Anion Gap 13 mmol/L (10-20); BUN (Urea Nitrogen) 11 mg/dL (8.4-25.7); Calc. Creatinine Clearance 75 mL/min (70-130); Carbon Dioxide 21 mmol/L (23-31); Chloride 107 mmol/L (98-107); Estimated GFR-MDRD 76; Glucose 61 mg/dL (83-110); Potassium 3.1 mmol/L (3.5-5.1); Sodium 138 mmol/L (136-145)
[2020-06-12 08:36] LABS: Band 29 % (5-11); Dohle Bodies SLIGHT; Lymphocytes 5 % (21-51); MDiff Complete? YES; Monocytes 8 % (0-10); Neutrophil 58 % (42-75); Platelet Morphology Comment Appears Decreased; Polychromasia SLIGHT = 2-3 cells (100X) (0-2/hpf)
[2020-06-12] MEDS: Tamsulosin HCl 0.4 MG CAP PO SCH (08:49)
[2020-06-12] MEDS: Apixaban 2.5 MG TAB PO SCH (08:49)
[2020-06-12] MEDS: Atorvastatin Calcium 40 MG TAB PO SCH (08:49)
[2020-06-12] MEDS: Cefepime 2 GM in Sodium Chloride 0.9% 100 ML IVPB SCH (08:50)
[2020-06-12] MEDS: Metoprolol Tartrate 50 MG TAB PO SCH (08:50)
[2020-06-12] MEDS: Sodium Chloride 0.9% 1,000 ML IV SCH (08:51)
[2020-06-12] MEDS ORDERED: Potassium Chloride 20 MEQ TAB PO SCH (09:15)
[2020-06-12] MEDS ORDERED: Amlodipine 5 MG TAB PO SCH (10:00)
[2020-06-12] MEDS ORDERED: Amoxicillin/Potassium Clav 875 MG TAB PO SCH ×2 (11:00→21:00)
--- NOTE | 2020-06-12 12:13 | PDOC.MOPN ---
Interval History: remains weak. He is working with PT - Vital Signs Vital Signs: Vital Signs (12 hours) Temp Pulse Resp BP BP Pulse Ox 06/12/20 11:25 98.1 F 90 16 170/91 H 99 06/12/20 10:07 168/88 H 06/12/20 09:01 179/98 H 06/12/20 07:25 98 06/12/20 07:22 98 16 98 06/12/20 07:05 98.3 F 104 H 20 164/105 H 97 06/12/20 03:00 98.4 F 81 17 141/71 H 96 Weight Weight 185 lb 3.2 oz - Physical Exam General: Alert, Oriented x3, No acute distress HEENT: Atraumatic, PERRLA, EOMI, Mucous membr. moist/pink Lungs: Clear to auscultation, Normal air movement Cardiovascular: Regular rate Abdomen: Normal bowel sounds Neurological: Normal speech - Labs Result Diagrams: 06/12/20 07:25 06/12/20 07:25 Lab results: Laboratory Results - last 24 hr 06/12/20 10:40: POC Glucose 70 06/12/20 07:25: Magnesium 1.9 06/12/20 07:25: Sodium 138, Potassium 3.1 L, Chloride 107, Carbon Dioxide 21 L, Anion Gap 13, BUN 11, Creatinine 0.96, Estimated GFR (MDRD) 76, Glucose 61 L, Calcium 8.0 06/12/20 07:25: WBC 16.0 H, RBC 2.99 L, Hgb 9.8 L, Hct 29.4 L, MCV 98.1 H, MCH 32.6 H, MCHC 33.2, RDW 15.9 H, Plt Count 64 L, MPV 10.8 H, Neutrophils % (Manual ) 58, Band Neuts % (Manual) 29 H, Lymphocytes % (Manual) 5 L, Monocytes % ( Manual) 8, Lymphocytes # Not Reportable, Dohle Bodies SLIGHT, Plt Morphology Comment Appears Decreased L, Polychromasia SLIGHT = 2-3 cells 06/12/20 06:05: POC Glucose 70 06/12/20 03:44: Hgb 9.1 L, Hct 27.9 L, Plt Count 62 L 06/12/20 03:44: Creatinine 0.86, Estimated GFR (MDRD) 86 06/11/20 20:49: POC Glucose 152 H 06/11/20 16:41: POC Glucose 148 H Status: lab reviewed by me A/P - Problem (1) Colon cancer metastasized to lung Current Visit: Yes Code(s): C18.9 - MALIGNANT NEOPLASM OF COLON, UNSPECIFIED; C78.00 - SECONDARY MALIGNANT NEOPLASM OF UNSPECIFIED LUNG Status: Acute (2) Sepsis Current Visit: Yes Code(s): A41.9 - SEPSIS, UNSPECIFIED ORGANISM Status: Acute (3) Afib Current Visit: No Code(s): I48.91 - UNSPECIFIED ATRIAL FIBRILLATION Status: Acute - Plan Plan: continue abx continue PT likely postpone chemo next week follow-up in clinic
[2020-06-12] MEDS ORDERED: Magnesium 2 GM/50 ML 2 GM in Premix Bag 1 BAG IVPB SCH (13:00)
[2020-06-12 16:08] VITALS: BP 159/87; TEMP 98.2
[2020-06-12] MEDS ORDERED: Doxycycline 100 MG CAP PO SCH (21:00)
[2020-06-13] MEDS ORDERED: Amlodipine 5 MG TAB PO SCH (09:00)
--- NOTE | 2020-06-13 13:12 | DIS ---
DATE OF ADMISSION: 06/08/2020 DATE OF DISCHARGE: 06/12/2020 DISCHARGE DIAGNOSES: 1. Sepsis. 2. Community-acquired pneumonia. 3. Atrial fibrillation. 4. Diabetes mellitus. 5. Hypertension. 6. Colon cancer with lung metastasis. BRIEF CLINICAL COURSE: This is a 79-year-old male patient with a history of colon cancer with lung metastasis who recently had chemotherapy, presented to the ED with general malaise and weakness over weeks' duration. He also had productive cough. On presentation, he was diagnosed with bilateral lobar pneumonia and started on antibiotics. He was initially on vancomycin and cefepime, which did not improve his leukocytosis thus this was changed to cefepime and doxycycline with improvement. He was discharged to complete doxycycline and Augmentin. CONSULTANTS: Oncology, Dr. Treviño. DISCHARGE ACTIVITY: As can tolerate. DISCHARGE CONDITION: Stable. Job ID: [id number] MTDD
== END 2020-06-12 16:50 | disposition home health service (06) | DRG 871 ==
LOC: ERS 19:46 → 2NO 21:58
PROVIDERS: ADMIT Internal Medicine; ATTEND Internal Medicine
DX: A41.9 Sepsis, unspecified organism (principal); J18.9 Pneumonia, unspecified organism; C18.9 Malignant neoplasm of colon, unspecified; C78.00 Secondary malignant neoplasm of unspecified lung; Z20.828 Contact with and (suspected) exposure to other viral communicable diseases; I48.91 Unspecified atrial fibrillation; J44.9 Chronic obstructive pulmonary disease, unspecified; E78.5 Hyperlipidemia, unspecified; E11.9 Type 2 diabetes mellitus without complications; I10 Essential (primary) hypertension; T45.8X5A Adverse effect of other primarily systemic and hematological agents, initial encounter; N40.0 Benign prostatic hyperplasia without lower urinary tract symptoms; Z90.49 Acquired absence of other specified parts of digestive tract; Z79.82 Long term (current) use of aspirin; Z79.84 Long term (current) use of oral hypoglycemic drugs; Z87.891 Personal history of nicotine dependence; Z92.21 Personal history of antineoplastic chemotherapy
CPT/HCPCS: 36415; 36416; 36600; 71045; 71275; 80048; 80053; 82565; 83605; 83735; 83880; 84145; 85007; 85014; 85018; 85025; 85027; 85049; 87040; 87635; 94640; 96365; 96367; 96372; J0692; J1815; J2405; J2543; J3370; J3475; J3490; J7050; J7620; Q5108; Q9967; U0003